=== PATIENT | female | born 1955 | race Caucasian/White ===

== ENCOUNTER → 2016-06-17 | Day surgery (SDC) | payer OTHER ==
[2016-06-08 13:02] VITALS: Ht 162.6 cm; Wt 43.2 kg
[~2016-06-17] VITALS: Ht 162.6 cm; Wt 43.2 kg
[~2016-06-17] MED LIST: ANT PO; CHOL20007 PO; CLON0.5T3 PO; DIGE1CAP10 PO; DOCU-94 PO; EFFSR150 PO; EFFSR75 PO; FENTANYL CITRATE INJ 50 MCG/1 ML 2 ML VIAL ONE; FIBEPOW PO; GING1CAP PO; LEVO125T72 PO; LIDOCAINE HCL 2% 2 ML VIAL (20MG/ML) ONE; MELA3TAB PO; MIDAZOLAM HCL 1 MG/ML 2ML VIAL ONE; MISCCAP80 PO; ONDA4TAB46 PO; ONDANSETRON INJ 2 MG/ML 2 ML VIAL ONE; POLY3350 PO; PROPOFOL IV EMULSION 10 MG/ML 20 ML VIAL IV ONE; QUET400T PO; RANI150C4 PO; SRQ/100 PO; TRAZ100T29 PO
--- NOTE | 2016-06-17 14:58 | Endo History and Physical ---
History & Physical Date of Service: Jun 17, 2016. Chief Complaint: wt loss Referring Physician: Dr Carlson History of Present Illness 60 yo CF who presents for colonoscopy secondary to weight loss. Past Medical History Other Psy. Disorders, Arthritis, Fractures, Anxiety, Reflux, Gynecological Problems, Thrombophlebitis, Thyroid Disease, Depression Past Surgical History Hx Cardiac Surgery: No Hx Internal Defibrillator: No Hx Pacemaker: No Hx Abdominal Surgery: Yes (TUBAL LIGATION, LAPAROSCOPY) Hx of Implantable Prosthesis: No Hx Post-Op Nausea and Vomiting: No Hx Cancer Surgery: No Hx Thoracic Surgery: No Hx Orthopedic: No Hx Urinary Tract Surgery: No Family History Polyp Social History Smoking Status: Never Smoker Hx Substance Use: Yes (MARIJUANA DAILY/HX COCAINE, ACID, MUSHROOMS AGE 20'S) Hx Alcohol Use: Yes (QUIT "MANY YEARS AGO") Allergies Coded Allergies: Aripiprazole (Verified Allergy, Unknown, DIARRHEA, 06/08/16) Ziprasidone (Verified Allergy, Unknown, "MADE ME FEEL WEIRD", 06/08/16) [place] (Verified Adverse Reaction, Unknown, NAUSEA/VOMITING, 06/08/16) Paroxetine (Verified Adverse Reaction, Unknown, MADE ME PSYCHOTIC, 06/08/16) Tramadol (Verified Adverse Reaction, Unknown, NAUSEA/VOMITING, 06/08/16) Uncoded Allergies: GREEN TEA (Allergy, Unknown, "PROJECTILE VOMIT AND SEIZURES", 06/08/16) Current Medications Reported Home Medications Medications Dose Route/Sig Max Daily Dose Days Date Category Klonopin (Clonazepam) 0.5 Mg Tab 0.5 Mg PO DAILY PRN 06/08/16 Reported Digestive Enzyme (Digestive Enzymes) 1 Cap Cap 1 Cap PO TIDM 06/08/16 Reported Probiotic (Probiotic Product) 1 Cap Cap 1 Tab PO BID 06/08/16 Reported Mar (Mar (Zingiber Officinalis)) 500 Mg Cap 1 Tab PO TIDM 06/08/16 Reported Vitamin D3 (Cholecalciferol) 2,000 Unit Tab 1 Tab PO QAM 06/08/16 Reported Zofran (Ondansetron HCl) 4 Mg Tab 4 Mg PO Q8H PRN 06/08/16 Reported Effexor Extended Rel (Venlafaxine Hcl) 150 Mg Capcr 150 Mg PO QAM 06/08/16 Reported Effexor Extended Rel (Venlafaxine Hcl) 75 Mg Capcr 75 Mg PO QAM 06/08/16 Reported Trazodone (Trazodone HCl) 100 Mg Tab 100 Mg PO HS 06/08/16 Reported Seroquel (Quetiapine Fumarate) 400 Mg Tab 400 Mg PO HS 06/08/16 Reported Seroquel (Quetiapine Fumarate) 100 Mg Tab 100 Mg PO HS 06/08/16 Reported Antacid (Miscellaneous) . 1 Tab PO UD PRN 06/08/16 Reported Ranitidine Hcl 150 Mg Cap 1 Cap PO BID 06/08/16 Reported Fiber 1 Pow Pow 1 Tsp PO QAM 06/08/16 Reported Klonopin (Clonazepam) 0.5 Mg Tab 0.5 Mg PO QID 06/08/16 Reported Colace (Docusate Sodium) 100 Mg Cap 1 Cap PO BID 06/08/16 Reported Melatonin 3 Mg Tab 1 Tab PO HS 12/04/14 Reported Polyethylene Glycol 3350 1 Pow Pow 3 Tsp PO QAM 12/04/14 Reported Synthroid (Levothyroxine Sodium) 125 Mcg Tab 1 Tab PO QAM 12/04/14 Reported Vital Signs Weight (Kilograms): 43.18 Height (Feet): 5 Height (Inches): 4 Date Time Temp Pulse Resp B/P Pulse Ox O2 Delivery O2 Flow Rate FiO2 06/17/16 14:00 36.7 86 20 135/76 98 Room Air Physical Exam General Appearance: WD/WN, no apparent distress Respiratory/Chest: Auscultation: breath sounds normal Cardiovascular: Heart Auscultation: RRR Abdomen: Bowel Sounds: normal Inspection & Palpation: soft, non-distended, no tenderness, guarding & rebound Assessment and Plan Assessment: 60 yo CF who presents for colonoscopy secondary to weight loss. Plan: Proceed with colonoscopy.
--- NOTE | 2016-06-17 15:48 | GI REPORT ---
Procedure Date: 06/17/2016 3:19 PM Procedure: Colonoscopy Indications: Weight loss Medicines: Monitored Anesthesia Care Complications: No immediate complications. Estimated Blood Loss: Estimated blood loss: none. Procedure: Pre-Anesthesia Assessment: - Prior to the procedure, a History and Physical was performed, and patient medications and allergies were reviewed. The patient's tolerance of previous anesthesia was also reviewed. The risks and benefits of the procedure and the sedation options and risks were discussed with the patient. All questions were answered, and informed consent was obtained. Prior Anticoagulants: The patient has taken no previous anticoagulant or antiplatelet agents. ASA Grade Assessment: II - A patient with mild systemic disease. After reviewing the risks and benefits, the patient was deemed in satisfactory condition to undergo the procedure. After I obtained informed consent, the scope was passed under direct vision. Throughout the procedure, the patient's blood pressure, pulse, and oxygen saturations were monitored continuously. The Scope was introduced through the anus and advanced to the terminal ileum. The colonoscopy was performed without difficulty. The patient tolerated the procedure well. The quality of the bowel preparation was good. The terminal ileum, ileocecal valve, appendiceal orifice, and rectum were photographed. Findings: The colon (entire examined portion) appeared normal. Impression: - The entire examined colon is normal. - No specimens collected. Recommendation: - Resume previous diet. - Continue present medications. - Repeat colonoscopy in 10 years for surveillance. - Return to primary care physician as previously scheduled. Sam Kearney DO 06/17/2016 3:48:06 PM This report has been signed electronically. Note Initiated On: 06/17/2016 3:19 PM I attest to the content of the Intraoperative Record and orders documented therein, exceptions below
--- NOTE | 2016-06-17 15:49 | Discharge Instructions ---
Endoscopy Patient Instructions Date / Procedure(s) Performed Jun 17, 2016. Colonoscopy Allergy Information Coded Allergies: Aripiprazole (Verified Allergy, Unknown, DIARRHEA, 06/08/16) Ziprasidone (Verified Allergy, Unknown, "MADE ME FEEL WEIRD", 06/08/16) [place] (Verified Adverse Reaction, Unknown, NAUSEA/VOMITING, 06/08/16) Paroxetine (Verified Adverse Reaction, Unknown, MADE ME PSYCHOTIC, 06/08/16) Tramadol (Verified Adverse Reaction, Unknown, NAUSEA/VOMITING, 06/08/16) Uncoded Allergies: GREEN TEA (Allergy, Unknown, "PROJECTILE VOMIT AND SEIZURES", 06/08/16) Discharge Date / Findings Jun 17, 2016. Normal colonoscopy Medication Instructions OK to resume all medications today as prescribed Reported Home Medications Medications Dose Route/Sig Max Daily Dose Days Date Category Klonopin (Clonazepam) 0.5 Mg Tab 0.5 Mg PO DAILY PRN 06/08/16 Reported Digestive Enzyme (Digestive Enzymes) 1 Cap Cap 1 Cap PO TIDM 06/08/16 Reported Probiotic (Probiotic Product) 1 Cap Cap 1 Tab PO BID 06/08/16 Reported Mar (Mar (Zingiber Officinalis)) 500 Mg Cap 1 Tab PO TIDM 06/08/16 Reported Vitamin D3 (Cholecalciferol) 2,000 Unit Tab 1 Tab PO QAM 06/08/16 Reported Zofran (Ondansetron HCl) 4 Mg Tab 4 Mg PO Q8H PRN 06/08/16 Reported Effexor Extended Rel (Venlafaxine Hcl) 150 Mg Capcr 150 Mg PO QAM 06/08/16 Reported Effexor Extended Rel (Venlafaxine Hcl) 75 Mg Capcr 75 Mg PO QAM 06/08/16 Reported Trazodone (Trazodone HCl) 100 Mg Tab 100 Mg PO HS 06/08/16 Reported Seroquel (Quetiapine Fumarate) 400 Mg Tab 400 Mg PO HS 06/08/16 Reported Seroquel (Quetiapine Fumarate) 100 Mg Tab 100 Mg PO HS 06/08/16 Reported Antacid (Miscellaneous) . 1 Tab PO UD PRN 06/08/16 Reported Ranitidine Hcl 150 Mg Cap 1 Cap PO BID 06/08/16 Reported Fiber 1 Pow Pow 1 Tsp PO QAM 06/08/16 Reported Klonopin (Clonazepam) 0.5 Mg Tab 0.5 Mg PO QID 06/08/16 Reported Colace (Docusate Sodium) 100 Mg Cap 1 Cap PO BID 06/08/16 Reported Melatonin 3 Mg Tab 1 Tab PO HS 12/04/14 Reported Polyethylene Glycol 3350 1 Pow Pow 3 Tsp PO QAM 12/04/14 Reported Synthroid (Levothyroxine Sodium) 125 Mcg Tab 1 Tab PO QAM 12/04/14 Reported Provider Instructions Activity Restrictions - No exercising or heavy lifting for 24 hours. - Do not drink alcohol the day of the procedure. - Do not drive a car or operate machinery until the day after the procedure. - Do not make any important decisions or sign important papers in 24 hours after the procedure. Following Day: - Return to full activity which may include returning to work/school. Diet Start your diet with liquids and light foods (jello, soup, juice, toast). Then eat your usual diet if not nauseated. Treatment For Common After Affects For mild abdominal pain, bloating, or excessive gas: - Rest - Eat lightly - Lie on right side Follow-Up Information Follow-up with Dr Carlson as scheduled Anesthesia Information What You Should Know You have had a procedure that required some medicine to reduce anxiety and discomfort. This treatment is called moderate sedation. After receiving the treatment, you may be sleepy, but you will be able to breathe on your own. The effects of the treatment may last for several hours. Follow these instructions along with Activity/Diet recommendations noted above: * Do NOT do anything where dizziness or clumsiness would be dangerous. * Rest quietly at home today, then you can be up and about tomorrow. * Have a responsible person stay with you the rest of today. * You may have had an I.V. today. If so, you may take the dressing off later today. Recommendations Call your doctor if: * Trouble breathing * Continuous vomiting for more than 24 hours * Temperature above 101 degrees * Severe abdominal pain or bloating * Pain not relieved by pain medicine ordered * There is increased drainage or redness from any incision * A large amount of rectal bleeding greater than 2-3 tablespoons. (If you had a polyp/s removed or have hemorrhoids, a small amount of blood - from the rectum is to be expected.) * You have any unanswered questions or concerns. IN THE EVENT OF A SERIOUS EMERGENCY, GO TO THE NEAREST EMERGENCY ROOM Your discharge instructions were prepared by provider Sam Kearney. Patient Instructions Signature Page Lorna Piedra Patient (or Guardian) Signature/Date: I have read and understand the instructions given to me by my caregivers. Caregiver/RN/Doctor Signature/Date: The above-named patient and/or guardian has received patient instructions on this date. + Original Patient Signature Page (only) stays with chart. Please make copy for patient.
--- NOTE | 2016-06-17 16:04 | Anesthesiology Progress Note ---
Anesthesia Post Op Note Date & Time Jun 17, 2016 at 16:05 Vital Signs Pain Intensity: 0 Vital Signs Past 12 Hours Date Time Temp Pulse Resp B/P Pulse Ox O2 Delivery O2 Flow Rate FiO2 06/17/16 15:44 72 18 107/70 99 Room Air 06/17/16 14:00 36.7 86 20 135/76 98 Room Air Notes Mental Status: alert / awake / arousable, participated in evaluation Pt Amnestic to Procedure: Yes Nausea / Vomiting: adequately controlled Pain: adequately controlled Airway Patency, RR, SpO2: stable & adequate BP & HR: stable & adequate Hydration State: stable & adequate Anesthetic Complications: no major complications apparent
[2016-06-17 16:13] VITALS: BP 133/76; PULSE 74; O2SAT 98
== END | disposition home or self-care (01) ==
LOC: C.GI 12:34
PROVIDERS: ATTEND Internal Medicine
DX: R63.4 Abnormal weight loss (principal); K21.9 Gastro-esophageal reflux disease without esophagitis; M19.90 Unspecified osteoarthritis, unspecified site; E07.9 Disorder of thyroid, unspecified; F32.9 Major depressive disorder, single episode, unspecified; I80.9 Phlebitis and thrombophlebitis of unspecified site; Z88.5 Allergy status to narcotic agent; Z88.8 Allergy status to other drugs, medicaments and biological substances; Z98.51 Tubal ligation status; Z98.890 Other specified postprocedural states

== ENCOUNTER → 2017-01-10 | Outpatient (CLI) | payer OTHER ==
[~2017-01-10] MED LIST changes: -FENTANYL CITRATE INJ 50 MCG/1 ML 2 ML VIAL ONE; -LIDOCAINE HCL 2% 2 ML VIAL (20MG/ML) ONE; -MIDAZOLAM HCL 1 MG/ML 2ML VIAL ONE; -ONDANSETRON INJ 2 MG/ML 2 ML VIAL ONE; -PROPOFOL IV EMULSION 10 MG/ML 20 ML VIAL IV ONE
== END | disposition home or self-care (01) ==
LOC: C.MAMM 11:41
PROVIDERS: ATTEND Family Medicine
DX: M81.0 Age-related osteoporosis without current pathological fracture (principal); M85.88 Other specified disorders of bone density and structure, other site; M85.851 Other specified disorders of bone density and structure, right thigh

== ENCOUNTER 2017-04-16 16:26 | Inpatient (IN) | payer OTHER ==
[~2017-04-16] VITALS: Ht 162.6 cm; Wt 62.0 kg
[2017-04-16] MEDS ORDERED: HALOPERIDOL LACTATE 5 MG/ML 1 ML VIAL IM STA ×2 (16:27→18:35)
[2017-04-16] MEDS ORDERED: LORAZEPAM 2 MG/ML 1 ML VIAL IM STA ×2 (16:27→18:35)
[2017-04-16] MEDS ORDERED: BENZTROPINE MESYLATE 1 MG/ML 2 ML AMP IM STA (16:27)
[2017-04-16] MEDS ORDERED: HALOPERIDOL LACTATE 5 MG/ML 1 ML VIAL ONE (16:29)
[2017-04-16] MEDS ORDERED: LORAZEPAM 2 MG/ML 1 ML VIAL ONE (16:29)
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
[2017-04-16] MEDS ORDERED: KETAMINE HCL INJ 50 MG/ML 10 ML VIAL IM STA (16:56)
[2017-04-16 17:06] LABS: BASO % 0.2 %; BASO ABS # 0.03 K/uL (0-0.2); EOS % 1.5 %; EOS ABS # 0.19 K/uL (0-0.5); HEMATOCRIT 33.4 % (37-47); HEMOGLOBIN 11.4 g/dL (12.0-16.0); IG# 0.03 K/uL (0.00-0.02); LYMPH % 6.9 %; LYMPH ABS # 0.88 K/uL (1.2-3.4); MEAN CELL VOLUME 88.1 fL (80-100); MEAN CORPUSCULAR HEMOGLOBIN 30.1 pg (25-34); MEAN CORPUSCULAR HGB CONC 34.1 g/dl (32-36); MEAN PLATELET VOLUME 8.6 fL (7.4-10.4); MONO % 8.9 %; MONO ABS # 1.13 K/uL (0.11-0.59); NEUT % 82.3 %; NEUT ABS # 10.44 K/uL (1.4-6.5); PLATELET COUNT 255 K/uL (130-400); RED CELL DISTRIBUTION WIDTH CV 13.1 % (11.5-14.5); RED CELL DISTRIBUTION WIDTH SD 42.1 fL (36.4-46.3)
[2017-04-16 17:10] VITALS: O2SAT 98
[2017-04-16 17:14] LABS: PTT PATIENT 25.2 SECONDS (21.0-31.0)
[2017-04-16 17:30] LABS: ALBUMIN 3.8 gm/dl (3.4-5.0); CALCIUM 8.8 mg/dl (8.5-10.1); CREATININE 0.59 mg/dl (0.60-1.20); POTASSIUM 3.5 mmol/L (3.5-5.1)
[2017-04-16 17:33] LABS: TOTAL PROTEIN 6.9 gm/dl (6.4-8.2)
[2017-04-16] MEDS ORDERED: ONDANSETRON INJ 2 MG/ML 2 ML VIAL IV STA (17:47)
[2017-04-16] MEDS ORDERED: LORAZEPAM 2 MG/ML 1 ML VIAL IV STA (18:36)
[2017-04-16] MEDS ORDERED: KETAMINE HCL INJ 50 MG/ML 10 ML VIAL IV STA ×3 (18:49→18:59)
[2017-04-16] MEDS: SODIUM CHLORIDE 0.9% 1000ML 1,000 ML IV STA (19:53)
--- NOTE | 2017-04-16 20:50 | DIAGNOSTIC IMAGING REPORT ---
HEAD WITHOUT CONTRAST (CT) CT DOSE: 537.48 mGy.cm HISTORY: Mental status change Pt c/o AMS TECHNIQUE: Multiaxial CT images of the head were performed without the use of intravenous contrast. A dose lowering technique was utilized adhering to the principles of ALARA. Comparison: None. Findings: Moderate mucosal thickening of the sphenoid sinuses. All remaining sinuses are clear. Mastoid air cells are clear. The calvarium and skull base are intact. The ventricles and sulci are within normal limits. There is no mass, hematoma, midline shift, or acute infarct. Mild age-related chronic small vessel change of the periventricular deep white matter regions. No acute intracranial hemorrhage. Impression: No acute intracranial abnormality. Chronic and age-related change. Moderate mucosal thickening sphenoid sinus The above report was generated using voice recognition software. It may contain grammatical, syntax or spelling errors. Electronically signed by: Ascencion Sparks M.D. 04/16/2017 8:49 PM Dictated Date/Time: 04/16/2017 8:48 PM
[2017-04-16] MEDS ORDERED: SODIUM CHLORIDE 0.65% NA SOLN 45 ML (OCEAN) PRN (22:15)
[2017-04-16] MEDS ORDERED: MAGNESIUM HYDROXIDE SUSP 30 ML UDC PO PRN (22:15)
[2017-04-16] MEDS ORDERED: BISMUTH SUBSALICYLATE PER ML OMNICELL CHARGE PO PRN (22:15)
[2017-04-16] MEDS ORDERED: LORAZEPAM 1 MG TAB PO PRN (22:15)
[2017-04-16] MEDS ORDERED: ONDANSETRON 4 MG TAB PO PRN (22:30)
[2017-04-16] MEDS ORDERED: LORAZEPAM 2 MG/ML 1 ML VIAL IM PRN (22:30)
[2017-04-16] MEDS ORDERED: HALOPERIDOL LACTATE 5 MG/ML 1 ML VIAL IM PRN (22:30)
[2017-04-16] MEDS ORDERED: BENZTROPINE MESYLATE 1 MG/ML 2 ML AMP IM PRN (22:30)
[2017-04-16 22:35] VITALS: O2SAT 98
[2017-04-16 23:15] VITALS: BP 128/74; PULSE 68; TEMP 36.7; Ht 162.6 cm; Wt 62.0 kg
[2017-04-17] MEDS: [UNRECOGNIZED DRUG - OTHER] SCH ×2 (08:00→16:00)
[2017-04-17] MEDS ORDERED: LEVOTHYROXINE 125 MCG TAB PO SCH (08:00)
[2017-04-17] MEDS ORDERED: GINGER PO SCH (08:00)
[2017-04-17 08:58] VITALS: BP 129/72; PULSE 91; TEMP 37.1
[2017-04-17] MEDS ORDERED: VENLAFAXINE HCL XR 75 MG CAPXR PO SCH (09:00)
[2017-04-17] MEDS: POLYETHYLENE (MIRALAX) 17 GM PACK PO SCH (09:00)
[2017-04-17] MEDS ORDERED: VENLAFAXINE HCL XR 150 MG CAPXR PO SCH (09:00)
[2017-04-17] MEDS ORDERED: MULT-506 PO (09:54)
[2017-04-17] MEDS ORDERED: VNTHFA/IN INH (09:56)
[2017-04-17] MEDS ORDERED: CARI1CAP2 PO (10:00)
[2017-04-17] MEDS: LACTOBACILLUS ACIDOPHILUS (FLORANEX) TAB PO SCH ×2 (11:52→20:35)
[2017-04-17] MEDS: DOCUSATE SODIUM 100 MG CAP PO SCH ×2 (11:52→20:34)
[2017-04-17] MEDS: PSYLLIUM 58.6% PWD PACK S\\F PO SCH (11:52)
[2017-04-17] MEDS: CHOLECALCIFEROL 1000 INTER.UNIT TAB PO SCH (11:53)
[2017-04-17] MEDS: RANITIDINE HCL 150 MG TAB PO SCH ×2 (11:53→20:36)
[2017-04-17] MEDS: BENZTROPINE MESYLATE 1 MG TAB PO PRN (11:55)
[2017-04-17] MEDS: HALOPERIDOL 5 MG TAB PO PRN (11:55)
[2017-04-17] MEDS ORDERED: NURSING VERBAL MED ORDER ONE (12:15)
[2017-04-17] MEDS: LEVOTHYROXINE 100 MCG TAB PO SCH (12:25)
[2017-04-17] MEDS: ALBUTEROL HFA 8 GM INHALER INH PRN ×3 (12:26→20:34)
--- NOTE | 2017-04-17 17:46 | Psychiatric History & Physical ---
History Date of Service Apr 17, 2017. Identifying Data Lorna Piedra is a 61-year-old female admitted on Apr 16, 2017 at 22:19 who currently lives in [place] alone. Lorna Piedra was admitted on a 302 involuntary commitment. Patient is admitted from the ED where she required multiple chemical and physical restraints for agitation. The patient was brought to the ED by the police and there is an active warrant for her arrest on multiple counts of terroristic threats. The police are to be notified prior to discharge. Chief Complaint "what was I supposed to do?". History of Present Illness Patient slept through the night and reports little memory of events in ED. She is loud/pressured and not particularly cooperative with interview currently. She reportedly confronted her neighbors for [place] water and then threatened them with a frying lott prior to barricading herself in her home with a >3 ft long machete. She was in a "stand off" with police for 2 hours threatening herself and others and required 4 pt restraints, IV and IM Ketamine, and Haldol and Ativan for agitation. She tells me that she wanted to adopt her neighbors and wanted specific water because tap water is poison. She states that she was chipping ice off of her deck to have suck on snow rather than drinking the water in her house. It doesn't seem that she has been taking her medication, specifically Seroquel as prescribed. Dosing doesn't match Dr. Decker's last clinic note and when I spoke with him directly he stated that patient is no longer taking Vraylar or Ativan. He is aware of her history of benzo OD but since she had been stable for some time on Seroquel (dose up to 500 mg) he had provided a few tabs as a comfort measure. The patient is insistent with me that she have Klonopin and Ativan. She does have insight that "I clearly need Seroquel", recognizing that her current use of 50-100 mg is inadequate to control her mood symptoms. She admitted to staff that she uses MJ regularly and when she can't have an Ativan she takes a shot of Vodka daily. Of note patient was last seen on consult service on 12/17 for Klonopin OD. She has been following at [facility] since summer. Last therapy appt with Dr. Weber in August 2016. Past Psychiatric History Current OP Treatment: psychiatrist (Dr. Decker, [facility]) Prior OP Treatment: psychiatrist (Dr. Adam [facility]), therapist (Dr. Weber, [facility], [facility]), case hardener (plus peer support and [facility]) Prior Psych Hospitalizations: [facility] (multiple, last ?2014), [facility] (2004, 2006, 2008), other [facility] 2014 most recent; [facility] Access to a Gun: No Suicide Attempts: Yes (multiple OD on traz, benzo, ETOH, tylenol) Past Medication Trials Remeron, Prozac, Wellbutrin, Celexa, Paxil (?withdrawal seizure), Zoloft Seroquel, Saphris, Zyprexa, Risperdal, Geodon, Abilify (GI), Vraylar 2017 (3 mg) , Haldol cogentin, amantadine buspar, klonopin, Ativan trazodone, neurontin Depakote (helpful), lithium (nonspecific bad reaction) Past Medical/Surgical History (1) Hypothyroidism (2) Tonsillectomy Allergies Allergies: Coded Allergies: Aripiprazole (Verified Allergy, Unknown, DIARRHEA, 06/08/16) Ziprasidone (Verified Allergy, Unknown, "MADE ME FEEL WEIRD", 06/08/16) Addy (Verified Adverse Reaction, Unknown, NAUSEA/VOMITING, 06/08/16) Paroxetine (Verified Adverse Reaction, Unknown, MADE ME PSYCHOTIC, 06/08/16) Tramadol (Verified Adverse Reaction, Unknown, NAUSEA/VOMITING, 06/08/16) Uncoded Allergies: GREEN TEA (Allergy, Unknown, "PROJECTILE VOMIT AND SEIZURES", 06/08/16) Home Medications Scheduled Cholecalciferol (Vitamin D3), 1 TAB PO QAM Digestive Enzymes (Digestive Enzyme), 1 CAP PO TIDM Fiber (Fiber), 1 TSP PO QAM Mar (Zingiber Officinalis) (Mar), 1 TAB PO TIDM Levothyroxine Sodium (Synthroid), 100 MCG PO QAM Multivitamin (Multivitamin), 1 TAB PO DAILY Polyethylene Glycol 3350 (Polyethylene Glycol 3350), 3 TSP PO QAM Probiotic Product (Probiotic), 1 TAB PO BID Quetiapine Fumarate (Seroquel), 50 MG PO HS Ranitidine Hcl (Ranitidine Hcl), 1 CAP PO BID17 Scheduled PRN Albuterol Hfa (Ventolin Hfa), 2 PUFFS INH Q6H PRN for Shortness of Breath Antacid (Antacid), 1 TAB PO UD PRN for Indigestion Docusate Sodium (Colace), 1 CAP PO BID PRN for Constipation Ondansetron Hcl (Zofran), 4 MG PO Q8H PRN for Nausea Family History FH ischemic heart disease FH: chronic respiratory condition Psychiatric condition History of Substance Abuse: Yes (fa and sis ETOH) Psychiatric History: Yes (mother and son depression; [facility]) Alcohol Use Alcohol Use In Past 12 Months: Yes patient is unable to quantify reliably Smoking Use Smoking Status: Never Smoker Substance History hx of MJ and benzodiazepine abuse Personal History Lives in: [place] Work History: BA from [employer] Relationship History: (X3) Children: 2 sons, limited to no contact Legal History: reported (warrant as above) Psychological Trauma History: Denies Hx Traumatic Event Review of Systems Psych: denies symptoms other than stated above Constitutional: denied Cardiovascular: denied GI: denied Neurologic: denied Remainder of 10 body systems also reviewed and denied other than noted above. Examination Physical Examination A physical exam was performed in the ER prior to admission to the unit by Dr. Horton. I accept that physical as correct/medical clearance for the inpatient physical exam. Vital Signs Vital Signs Past 12 Hours Date Time Temp Pulse Resp B/P (MAP) Pulse Ox O2 Delivery O2 Flow Rate FiO2 04/17/17 08:58 37.1 91 16 129/72 Laboratory Results Last 24 Hours Test 04/16/17 17:16 04/16/17 20:09 04/16/17 21:10 Bedside Glucose 109 mg/dl Total Creatine Kinase U/L 521 U/L Thyroid Stimulating Hormone (TSH) 6.050 uIu/ml Mental Examination During interview pt is: alert and oriented, uncooperative Appearance: disheveled Eye contact is: poor Motor behavior is: no abnormal motor movements, psychomotor agitation Speech: is pressured, loud Affect: labile Mood is: irritable Thought process: tangential Thought content: paranoid, delusions Suicidal thought are: denied Homicidal thoughts are: denied Hallucinations: denies auditory, denies visual Cognition: language grossly intact, other (attention poor) Intelligence estimated to be: average Insight: severely impaired Judgement: severely impaired Impression / Recommendations Impression 61 yo female with a history of schizoaffective disorder, bipolar type presents with paranoid delusions and aggression toward neighbors and police due to irritable mirna while tapering and/or noncompliant with Seroquel. She has a history of multiple OD attempts and benzo misuse/abuse. Inventory Assets Strengths: intelligent, has outpatient psychiatrist, willing to take PO meds at this point Needs: therapist/community resources outside of [facility], clarification of legal situation Risk Factors Assessment : Yes /single/: Yes Higher / Fall in social status: Yes Access to guns: No Mental Health Diagnoses: Yes Previous attempt: Yes Previous psychiatric stay: Yes Recommendations (1) Schizoaffective disorder 04/17--The patient is admitted to [facility] ([facility]) on q 15 min checks (behavioral with suicide precautions) for safety. The patient will participate in group, recreational and milieu therapies and will be offered additional individual and family sessions as clinically appropriate. Case reviewed with outpatient psychiatrist. She is agreeable to restart higher dose of Seroquel and will take 200 mg this hs with additional 100 mg po prn, likely should be retitrated to at least [address] Decker would support retrial of adjunctive depakote and/or conversion to injectable. multiple prns ordered should she become agitated, MNPR given unpredictable behavior (2) Benzodiazepine abuse patient is unable to participate in meaningful discussion around this and ETOH use, unclear if use disorder on the latter and will cover with [facility] protocol. Outpatient provider is clear he will no longer rx any benzos for this patient (3) Hypothyroidism TSH >5 on admission, repeat panel. (4) Legal intervention active arrest warrant for terroristic threats CPT Code Initial Hospital Care: 82977 Problem Qualifiers (1) Schizoaffective disorder: Schizoaffective disorder type: bipolar Qualified Codes: F25.0 - Schizoaffective disorder, bipolar type
[2017-04-17] MEDS ORDERED: NON-FORMULARY MEDICATION (Melatonin 1 TAB) PO SCH (21:00)
[2017-04-17] MEDS ORDERED: QUETIAPINE FUMARATE 200 MG TAB PO SCH (22:00)
[2017-04-18] MEDS: ALBUTEROL HFA 8 GM INHALER INH PRN ×4 (03:43→16:40)
[2017-04-18] MEDS: hydrOXYzine HCL 25 MG TAB PO PRN ×3 (05:00→20:46)
[2017-04-18 06:54] VITALS: BP_SYST 108; BP_SYST 123; BP_DIAS 71; BP_DIAS 72; PULSE 80; PULSE 81; TEMP 36.9
[2017-04-18] MEDS: LEVOTHYROXINE 100 MCG TAB PO SCH (07:36)
[2017-04-18] MEDS: [UNRECOGNIZED DRUG - OTHER] SCH ×3 (08:00→15:30)
[2017-04-18] MEDS: LACTOBACILLUS ACIDOPHILUS (FLORANEX) TAB PO SCH ×2 (08:43→20:41)
[2017-04-18] MEDS: RANITIDINE HCL 150 MG TAB PO SCH ×2 (08:43→20:42)
[2017-04-18] MEDS: DOCUSATE SODIUM 100 MG CAP PO SCH ×2 (08:43→20:41)
[2017-04-18] MEDS: CHOLECALCIFEROL 1000 INTER.UNIT TAB PO SCH (08:43)
[2017-04-18] MEDS: PSYLLIUM 58.6% PWD PACK S\\F PO SCH (08:44)
[2017-04-18] MEDS: POLYETHYLENE (MIRALAX) 17 GM PACK PO SCH (08:44)
[2017-04-18] MEDS: HALOPERIDOL 5 MG TAB PO PRN (12:53)
[2017-04-18] MEDS: BENZTROPINE MESYLATE 1 MG TAB PO PRN ×2 (12:53→18:22)
--- NOTE | 2017-04-18 14:16 | Psychiatric Progress Notes ---
Progress Note Date of Service Apr 18, 2017. Interval History Lorna Piedra is a 61-year-old female admitted on Apr 16, 2017 at 22:19 who currently lives in [place] alone. Lorna Piedra was admitted on a 302 involuntary commitment. Patient is admitted from the ED where she required multiple chemical and physical restraints for agitation. The patient was brought to the ED by the police and there is an active warrant for her arrest on multiple counts of terroristic threats. The police are to be notified prior to discharge. Chief Complaint "Hanging in there". Subjective Patient was seen & assessed interval progress reviewed with Treatment Team. Staff report the patient has been manic, hyperverbal, changing her clothes multiple times, and going back and forth between her room in the day room carrying several drinks and belongings with her. She is intrusive, disorganized , has been eating other patient's food, and requires frequent redirection. She is extremely labile and irritable at times, and is unable to tolerate groups. She has poor boundaries, and is asking to be discharged because another patient had a ticket to an event and Lorna expects to be invited. She received Haldol 5 mg once yesterday and went so far today for agitation and mirna. On my assessment, she was seen in her room, was pacing around, and said that she couldn't answer questions because "can't talk very well, now I have COPD." She reports good sleep, and then says she won't answer any further questions, saying "can I tell you later please? I'm sick and I'm ill, all over." She then requests burn ointment for her hands, and when asked how she injured her hand, says "don't worry about it, I was trying to quit." She then says she "just needs someone to listen to me," and when asked to clarify says "I'm trying to talk but I don't have any breath left. Just leave me alone!" Social work reports she signed a release for police, who confirmed that they have a warrant for her arrest and will be picking her up at discharge. Review of Systems Patient refused to participate in review of systems. Sleep Information Total Hours of Sleep: 8.25 Meal Information Percent of Breakfast Consumed: 90 Percent of Lunch Consumed: 100 Percent of Dinner Consumed: 100 Mental Status Exam During interview pt is: uncooperative Appearance: disheveled Eye contact is: poor Motor behavior is: no abnormal motor movements, psychomotor agitation Speech: is pressured, loud Affect: labile, irritable Mood is: irritable Thought process: tangential, looseness of associations Thought content: other (difficult to assess due to disorganization and poor participation in the assessment) Cognition: language grossly intact, other (memory and attention are impaired) Intelligence estimated to be: average Insight: severely impaired Judgement: severely impaired Medication Trials Remeron, Prozac, Wellbutrin, Celexa, Paxil (?withdrawal seizure), Zoloft Seroquel, Saphris, Zyprexa, Risperdal, Geodon, Abilify (GI), Vraylar 2017 (3 mg) , Haldol cogentin, amantadine buspar, klonopin, Ativan trazodone, neurontin Depakote (helpful), lithium (nonspecific bad reaction) Impression 61 yo female with a history of schizoaffective disorder, bipolar type who presents with paranoid delusions, disorganization, and aggression toward neighbors and police due to irritable mirna while tapering and/or noncompliant with Seroquel. She has a history of multiple OD attempts and benzo misuse/ abuse. Plan (1) Schizoaffective disorder 04/17--The patient is admitted to [facility] ([facility]) on q 15 min checks (behavioral with suicide precautions) for safety. The patient will participate in group, recreational and milieu therapies and will be offered additional individual and family sessions as clinically appropriate. Case reviewed with outpatient psychiatrist. She is agreeable to restart higher dose of Seroquel and will take 200 mg this hs with additional 100 mg po prn, likely should be retitrated to at least [address] Decker would support retrial of adjunctive depakote and/or conversion to injectable. multiple prns ordered should she become agitated, MNPR given unpredictable behavior 04/18 - increase quetiapine to 300 mg daily at bedtime and continue 100 mg when necessary dose. Continue haloperidol 5 mg and lorazepam 2 mg as needed. Continue benztropine as needed. - Consider Depakote versus more potent antipsychotic with a long acting injectable option. Today she is unwilling/unable to participate in the discussion of medication options. - Fasting lipid profile and glucose performed today and were normal. - Continue medically necessary private room due to psychosis and agitation/ aggression. (2) Benzodiazepine abuse patient is unable to participate in meaningful discussion around this and ETOH use, unclear if use disorder on the latter and will cover with [facility] protocol. Outpatient provider is clear he will no longer rx any benzos for this patient (3) Hypothyroidism TSH >5 on admission, repeat panel. 04/18 - repeat TSH elevated at 6.8, but free T4 normal at 1.17. (4) Legal intervention active arrest warrant for terroristic threats 04/18 - patient signed release for police, social media manager contacted them and they confirmed that they will be picking her up at discharge. Discharge / Aftercare Planning Primary Care Physician: Name: Chanel Mujica PA Psychiatrist: Name: Dr Decker, [facility] Therapist: Name: Pia [employer] Teacher: Name: Justin Brice [employer] Reservations Visit Code E&M Code: 02439 Inventory Assets Strengths: intelligent, has outpatient psychiatrist, willing to take PO meds at this point Needs: therapist/community resources outside of [employer], clarification of legal situation Risk Factors Assessment : Yes /single/: Yes Higher / Fall in social status: Yes Access to guns: No Health problems: No Mental Health Diagnoses: Yes Previous attempt: Yes Previous psychiatric stay: Yes Protective Factors Assessment : No Data Vital Signs Last 24 Hrs: Date Time Temp Pulse Resp B/P (MAP) Pulse Ox O2 Delivery O2 Flow Rate FiO2 04/18/17 06:54 36.9 80 16 123/71 81 108/72 Meds Administered Last 24 Hrs: Meds Administered (Past 24Hrs) Medications (Trade) Dose Ordered Sig/[place] Route Start Time Stop Time Status Last Admin Dose Admin Haloperidol Lactate (Haldol Inj) 10 mg NOW STAT IM 04/16/17 16:27 04/16/17 16:28 DC 04/16/17 17:52 10 MG Lorazepam (Ativan Inj) 2 mg NOW STAT IM 04/16/17 16:27 04/16/17 16:28 DC 04/16/17 17:53 2 MG Benztropine Mesylate (Cogentin Inj) 2 mg NOW STAT IM 1/13/18 16:27 04/16/17 16:28 DC 04/16/17 17:33 2 MG Haloperidol Lactate (Haldol Inj) 10 mg NOW STAT IM 04/16/17 18:35 04/16/17 18:36 DC 04/16/17 18:46 10 MG Lorazepam (Ativan Inj) 2 mg NOW STAT IV 04/16/17 18:36 04/16/17 18:37 DC 04/16/17 18:46 2 MG Ketamine HCl (Ketalar Steri-Vial Inj) 50 mg NOW STAT IV 04/16/17 18:49 04/16/17 18:51 DC 04/16/17 19:02 50 MG Ketamine HCl (Ketalar Steri-Vial Inj) 50 mg NOW STAT IV 04/16/17 18:49 04/16/17 18:51 DC 04/16/17 19:02 50 MG Ketamine HCl (Ketalar Steri-Vial Inj) 50 mg NOW STAT IV 04/16/17 18:59 04/16/17 19:00 DC 04/16/17 19:02 50 MG Sodium Chloride 1,000 ml @ 999 mls/hr Q1H1M STAT IV 04/16/17 19:53 04/16/17 20:53 DC 04/16/17 19:53 999 MLS/HR Hydroxyzine HCl (Vistaril Tab) 25 mg Q4H PRN PO 04/16/17 22:15 05/16/17 22:14 04/18/17 05:00 25 MG Docusate Sodium (coLACE CAP) 100 mg BID PO 04/17/17 09:00 05/17/17 08:59 04/18/17 08:43 100 MG Cholecalciferol (Vitamin D Tab) 2,000 inter.unit QAM PO 04/17/17 09:00 05/17/17 08:59 04/18/17 08:43 2,000 INTER.UNIT Psyllium Hydrophilic Mucilloid (Metamucil Powder) 1 pkt QAM PO 04/17/17 09:00 05/17/17 08:59 04/18/17 08:44 1 PKT Lactobacillus Acidophilus (Floranex Tab) 1 tab BID PO 04/17/17 09:00 05/17/17 08:59 04/18/17 08:43 1 TAB Ranitidine HCl (zANTac TAB) 150 mg BID PO 04/17/17 09:00 05/17/17 08:59 04/18/17 08:43 150 MG Haloperidol (Haldol Tab) 5 mg Q6 PRN PO 04/16/17 22:30 05/16/17 22:29 04/18/17 12:53 5 MG Benztropine Mesylate (Cogentin Tab) 1 mg BID PRN PO 04/16/17 22:30 05/16/17 22:29 04/18/17 12:53 1 MG Quetiapine Fumarate (seroQUEL TAB) 200 mg HS PO 04/17/17 22:00 04/18/17 09:47 DC 04/17/17 20:35 200 MG Levothyroxine Sodium (Synthroid Tab) 100 mcg DAILYBB PO 04/17/17 11:30 05/17/17 11:29 04/18/17 07:36 100 MCG Albuterol (Ventolin Hfa Inhaler) 2 puffs Q4H PRN INH 04/17/17 12:15 05/17/17 12:14 04/18/17 12:39 2 PUFFS Lab Results Last 24 Hrs: Last 24 Hours Test 04/18/17 07:13 Fasting Glucose 87 mg/dl Triglycerides Level 67 mg/dl Cholesterol Level 161 mg/dl HDL Cholesterol 63 mg/dl LDL Cholesterol, Calculated 85 mg/dl VLDL Cholesterol, Calculated 13 mg/dl Cholesterol/HDL Ratio 2.6 Thyroid Stimulating Hormone (TSH) 6.800 uIu/ml Free Thyroxine 1.17 ng/dl Problem Qualifiers (1) Schizoaffective disorder: Schizoaffective disorder type: bipolar Qualified Codes: F25.0 - Schizoaffective disorder, bipolar type
[2017-04-18] MEDS ORDERED: HYDROCORTISONE 1% CR 30 GM TUBE EXT PRN (14:30)
[2017-04-18] MEDS: QUETIAPINE FUMARATE 100 MG TAB PO SCH (20:42)
[2017-04-18] MEDS: QUETIAPINE FUMARATE 100 MG TAB PO PRN (22:12)
[2017-04-18] MEDS: ALUMINUM/MAGNESIUM SUSP 30 ML UDC PO PRN (22:29)
[2017-04-19] MEDS: hydrOXYzine HCL 25 MG TAB PO PRN ×5 (04:58→23:38)
[2017-04-19] MEDS: ALBUTEROL HFA 8 GM INHALER INH PRN ×4 (05:00→21:32)
[2017-04-19] MEDS: ACETAMINOPHEN 325 MG TAB PO PRN ×2 (05:46→21:29)
[2017-04-19 06:59] VITALS: BP_SYST 116; BP_SYST 117; BP_DIAS 80; BP_DIAS 81; PULSE 91; PULSE 92; TEMP 36.6
[2017-04-19] MEDS: [UNRECOGNIZED DRUG - OTHER] SCH ×3 (08:00→16:00)
[2017-04-19] MEDS: LEVOTHYROXINE 100 MCG TAB PO SCH (08:23)
[2017-04-19] MEDS: DOCUSATE SODIUM 100 MG CAP PO SCH ×2 (08:23→21:24)
[2017-04-19] MEDS: RANITIDINE HCL 150 MG TAB PO SCH ×2 (08:24→21:24)
[2017-04-19] MEDS: CHOLECALCIFEROL 1000 INTER.UNIT TAB PO SCH (08:24)
[2017-04-19] MEDS: LACTOBACILLUS ACIDOPHILUS (FLORANEX) TAB PO SCH ×2 (08:24→21:24)
[2017-04-19] MEDS: PSYLLIUM 58.6% PWD PACK S\\F PO SCH (08:26)
[2017-04-19] MEDS ORDERED: POLYETHYLENE (MIRALAX) 17 GM PACK PO PRN (09:00)
[2017-04-19] MEDS: BENZTROPINE MESYLATE 1 MG TAB PO PRN (10:54)
[2017-04-19] MEDS: HALOPERIDOL 5 MG TAB PO PRN (10:54)
[2017-04-19] MEDS ORDERED: TRIHEXYPHENIDYL HCL 2 MG TAB PO ONE (15:15)
--- NOTE | 2017-04-19 15:15 | Psychiatric Progress Notes ---
Progress Note Date of Service Apr 19, 2017. Interval History Lorna Piedra is a 61-year-old female admitted on Apr 16, 2017 at 22:19 who currently lives in [place] alone. Lorna Piedra was admitted on a 302 involuntary commitment. Patient is admitted from the ED where she required multiple chemical and physical restraints for agitation. The patient was brought to the ED by the police and there is an active warrant for her arrest on multiple counts of terroristic threats. The police are to be notified prior to discharge. Chief Complaint "I'm in pain from the top of my head to my toes. ". Subjective Patient was seen & assessed interval progress reviewed with Treatment Team. The patient comes with a pile of papers filled with questions today. She says that she has pain all over, wanting meds. She is complaining of restlessness that prevents her from sitting. She admits to very poor sleep wanting a sleeping med. She talks at length about the son of a first cousin who is a murderer and she needs to "call the police right now", that he's on a killing spree and says that her sister Carol will confirm it. With some persistence, she is able to focus away from this to talk about her own treatment. She acknowledges the need for stronger meds, agreeing that she has been unstable since she asked to have her meds decreased as an OP. She agrees to a trial of Invega, but not to the Invega Sustenna AHUMADA. She denies aud/vis hallucinations. Nursing reports that she is intrusive into others' conversation, and had extremely poor sleep last night. she is easily agitated and at times inappropriate. Review of Systems Constitutional: + problem reported (restless) ENT: No hearing loss, No unusual epistaxis, No nasal symptoms, No sore throat, No tinnitus, No dental problems, No trouble swallowing, No problem reported Respiratory: No cough, No sputum, No wheezing, No shortness of breath, No dyspnea on exertion, No dyspnea at rest, No hemoptysis, No problem reported Cardiovascular: No chest pain, No orthopnea, No PND, No edema, No claudication , No palpitations, No problem reported Abdomen: No pain, No nausea, No vomiting, No diarrhea, No constipation, No GI bleeding, No problem reported Musculoskeletal: + problem reported (pain all over) Neurologic: No memory loss, No paralysis, No weakness, No numbness/tingling, No vertigo, No balance problems, No problem reported Psychiatric: + problem reported (delusions) Integumentary: + problem reported (healing scratch on forehead) Sleep Information Total Hours of Sleep: 2.25 Meal Information Percent of Breakfast Consumed: 100 Percent of Lunch Consumed: 75 Percent of Dinner Consumed: 25 Mental Status Exam During interview pt is: cooperative Appearance: disheveled Eye contact is: good (at times staring) Motor behavior is: psychomotor agitation, akathisia Speech: is pressured Affect: labile Mood is: anxious Thought process: tangential, flight of ideas Thought content: delusions Suicidal thought are: denied Homicidal thoughts are: denied Hallucinations: denies auditory, denies visual Cognition: language grossly intact, other (memory and attention are impaired) Intelligence estimated to be: average Insight: severely impaired Judgement: severely impaired Medication Trials Remeron, Prozac, Wellbutrin, Celexa, Paxil (?withdrawal seizure), Zoloft Seroquel, Saphris, Zyprexa, Risperdal, Geodon, Abilify (GI), Vraylar 2017 (3 mg) , Haldol cogentin, amantadine buspar, klonopin, Ativan trazodone, neurontin Depakote (helpful), lithium (nonspecific bad reaction) Impression Remains with flight of ideas, high energy and impaired sleep. Agrees to a trial of Invega as seroquel does not appear to be potent enough to stop this episode. Nursing has confirmed a copay for the oral would be $3.00 or so per month. Will start 3 mg. HS and continue Seroquel tonight. If tolerated will switch seroquel out and continue to discuss the benefits of an AHUMADA. We will order ibuprofen for her pain, and a one time dose of Artane 5 mg. for akathisia and consider scheduled if effective. Plan (1) Schizoaffective disorder 04/17--The patient is admitted to [facility] ([facility] mental health unit) on q 15 min checks (behavioral with suicide precautions) for safety. The patient will participate in group, recreational and milieu therapies and will be offered additional individual and family sessions as clinically appropriate. Case reviewed with outpatient psychiatrist. She is agreeable to restart higher dose of Seroquel and will take 200 mg this hs with additional 100 mg po prn, likely should be retitrated to at least [address] Decker would support retrial of adjunctive depakote and/or conversion to injectable. multiple prns ordered should she become agitated, MNPR given unpredictable behavior 04/18 - increase quetiapine to 300 mg daily at bedtime and continue 100 mg when necessary dose. Continue haloperidol 5 mg and lorazepam 2 mg as needed. Continue benztropine as needed. - Consider Depakote versus more potent antipsychotic with a long acting injectable option. Today she is unwilling/unable to participate in the discussion of medication options. - Fasting lipid profile and glucose performed today and were normal. - Continue medically necessary private room due to psychosis and agitation/ aggression. 04/19 - Start Invega 3 mg. HS, continue Seroquel for now. - Continue to encourage AHUAMDA Sustenna - may have akathisia, will have staff attempt a Garcia Akathisia Rating Scale - Artane 5 mg. NOW - Complaining of pain. Will order Ibuprofen 600 mg. QID prn (2) Benzodiazepine abuse patient is unable to participate in meaningful discussion around this and ETOH use, unclear if use disorder on the latter and will cover with [facility] protocol. Outpatient provider is clear he will no longer rx any benzos for this patient (3) Hypothyroidism TSH >5 on admission, repeat panel. 04/18 - repeat TSH elevated at 6.8, but free T4 normal at 1.17. (4) Legal intervention active arrest warrant for terroristic threats 04/18 - patient signed release for police, social services contacted them and they confirmed that they will be picking her up at discharge. Discharge / Aftercare Planning Primary Care Physician: Name: Chanel Mujica PA Psychiatrist: Name: Dr Decker, [facility] [employer] Therapist: Name: None [place]: Name: Justin Alexandra-Sandy [employer] [employer] Strengths: intelligent, has outpatient psychiatrist, willing to take PO meds at this point Needs: therapist/community resources outside of [facility], clarification of legal situation Risk Factors Assessment : Yes /single/: Yes Higher / Fall in social status: Yes Access to guns: No Health problems: No Mental Health Diagnoses: Yes Previous attempt: Yes Previous psychiatric stay: Yes Protective Factors Assessment : No Data Vital Signs Last 24 Hrs: Date Time Temp Pulse Resp B/P (MAP) Pulse Ox O2 Delivery O2 Flow Rate FiO2 04/19/17 06:59 36.6 91 18 117/81 92 116/80 Meds Administered Last 24 Hrs: Meds Administered (Past 24Hrs) Medications (Trade) Dose Ordered Sig/[place] Route Start Time Stop Time Status Last Admin Dose Admin Quetiapine Fumarate (seroQUEL TAB) 200 mg HS PO 04/17/17 22:00 04/18/17 09:47 DC 04/17/17 20:35 200 MG Quetiapine Fumarate (seroQUEL TAB) 300 mg HS PO 04/18/17 22:00 05/17/17 21:59 04/18/17 20:42 300 MG Problem Qualifiers (1) Schizoaffective disorder: Schizoaffective disorder type: bipolar Qualified Codes: F25.0 - Schizoaffective disorder, bipolar type
[2017-04-19] MEDS: QUETIAPINE FUMARATE 100 MG TAB PO SCH (21:24)
[2017-04-19] MEDS: PALIPERIDONE 3 MG TABCR PO SCH ×2 (21:25→23:04)
[2017-04-19] MEDS: ALUMINUM/MAGNESIUM SUSP 30 ML UDC PO PRN (21:28)
[2017-04-19] MEDS: IBUPROFEN 600 MG TAB PO PRN (23:05)
[2017-04-19] MEDS: QUETIAPINE FUMARATE 100 MG TAB PO PRN (23:37)
[2017-04-20] MEDS: ALBUTEROL HFA 8 GM INHALER INH PRN ×3 (05:45→19:20)
[2017-04-20 06:49] VITALS: BP_SYST 121; BP_SYST 127; BP_DIAS 84; BP_DIAS 85; PULSE 84; PULSE 86; TEMP 36.5
[2017-04-20] MEDS: CHOLECALCIFEROL 1000 INTER.UNIT TAB PO SCH (07:39)
[2017-04-20] MEDS: RANITIDINE HCL 150 MG TAB PO SCH ×2 (07:39→20:57)
[2017-04-20] MEDS: LACTOBACILLUS ACIDOPHILUS (FLORANEX) TAB PO SCH ×2 (07:39→20:56)
[2017-04-20] MEDS: LEVOTHYROXINE 100 MCG TAB PO SCH (07:39)
[2017-04-20] MEDS: DOCUSATE SODIUM 100 MG CAP PO SCH ×2 (07:39→20:56)
[2017-04-20] MEDS: PSYLLIUM 58.6% PWD PACK S\\F PO SCH (07:41)
[2017-04-20] MEDS: BENZTROPINE MESYLATE 1 MG TAB PO PRN (07:41)
[2017-04-20] MEDS: HALOPERIDOL 5 MG TAB PO PRN ×2 (07:41→22:00)
[2017-04-20] MEDS: [UNRECOGNIZED DRUG - OTHER] SCH ×3 (08:00→16:00)
[2017-04-20] MEDS: IBUPROFEN 600 MG TAB PO PRN ×3 (08:27→22:27)
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
[2017-04-20] MEDS: hydrOXYzine HCL 25 MG TAB PO PRN ×3 (09:42→23:46)
[2017-04-20] MEDS: QUETIAPINE FUMARATE 100 MG TAB PO PRN ×2 (11:37→23:58)
[2017-04-20] MEDS: ACETAMINOPHEN 325 MG TAB PO PRN ×2 (11:55→23:47)
[2017-04-20] MEDS: ALUMINUM/MAGNESIUM SUSP 30 ML UDC PO PRN (18:18)
[2017-04-20] MEDS: PALIPERIDONE 3 MG TABCR PO SCH (20:57)
[2017-04-20] MEDS: QUETIAPINE FUMARATE 100 MG TAB PO SCH (20:57)
[2017-04-21] MEDS: ALBUTEROL HFA 8 GM INHALER INH PRN ×3 (06:49→21:17)
[2017-04-21 06:50] VITALS: BP_SYST 114; BP_SYST 126; BP_DIAS 72; BP_DIAS 80; PULSE 82; PULSE 91; TEMP 36.6
[2017-04-21] MEDS: LEVOTHYROXINE 100 MCG TAB PO SCH (06:50)
--- NOTE | 2017-04-21 07:52 | Psychiatric Progress Notes ---
Progress Note Date of Service Apr 21, 2017. Interval History Lorna Piedra is a 61-year-old female admitted on Apr 16, 2017 at 22:19 who currently lives in [place] alone. Lorna Piedra was admitted on a 302 involuntary commitment. Patient is admitted from the ED where she required multiple chemical and physical restraints for agitation. The patient was brought to the ED by the police and there is an active warrant for her arrest on multiple counts of terroristic threats. The police are to be notified prior to discharge. Chief Complaint "I don't need to be here". Subjective Patient was seen & assessed interval progress reviewed with Nursing. Staff report she remains hyperverbal, tangential, pressured, labile, frequently upset and tearful, and made threatening statements that she would "kick in the doctor' s teeth if she tries to give me that medication I had yesterday." She was intrusive with poor boundaries and required frequent redirection. She requests numerous when necessary medications throughout the day, including quetiapine, hydroxyzine, haloperidol, benztropine, in addition to scheduled Invega. She has not yet been able to tolerate groups, and is inappropriate in her interactions with peers. She attempted take food off of other patient's trays. She carries 2-3 drinks with her at all times, and covered all the chairs in the day room with towels, as she said she did not want toxins to enter her body. She came to the nurse's station overnight reporting that she had defecated in her bed, but did not want to clean her sheets until the following morning. She frequently tell staff that she cannot breathe, although her respiratory exam is normal and she appears to be breathing without difficulty. This morning, the patient attended her 303 hearing which she contested, testifying that she wanted to apologize to everyone she threatened and harmed, and that she doesn't want to be intrusive and difficult, "but I just can't help myself." She talked about wanting to thank the police, staff and others involved in her admission for "making me clean up my act, both literally and figuratively," and said that now that she has "the magic formula" she is ready to leave. 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 She does not seem to understand that she has a warrant out for her arrest and the police will pick her up at discharge, even though she has been informed of this multiple times. She continues to state that she is going home and doesn't need to be in the hospital any longer. She switches rapidly from praising staff and her treatment to derogatory statements, and will say that she is unable to speak because she is so short of breath, then goes on to talk excessively in a pressured fashion. Met with her case preparer and liner and hospital community mental health social worker, reviewed disposition to prison and need to contact the forensic case preparer and liner to coordinate care with her while she is incarcerated. Her case preparer and liner reported that she had been manic for about 6 months prior to this admission, but refused the recommendations for inpatient treatment, and was not committable. She lives alone, but has 2 adult sons who live locally and may be able to assist in her treatment. He agreed with recommendations for long-acting injectable antipsychotic. Review of Systems Denies pain, GI upset, sedation, URI symptoms, UTI symptoms. Sleep Information Total Hours of Sleep: 7.25 Meal Information Percent of Breakfast Consumed: 75 Percent of Lunch Consumed: 90 Percent of Dinner Consumed: 100 Mental Status Exam During interview pt is: alert and oriented, other (partially cooperative, but irritable and labile) Appearance: appropriately dressed, disheveled Eye contact is: fair Motor behavior is: steady gait & station, psychomotor agitation (restlessness) Speech: is pressured (hyperverbal, loud at times) Affect: tearful, labile, irritable, other (mood switches rapidly from expansive and laughing to angry to tearful) Thought process: tangential, flight of ideas, looseness of associations Thought content: paranoid (talks about being "a guinea pig"), delusions Suicidal thought are: denied Homicidal thoughts are: denied (but admits that she threatened her neighbors and police on the day of admission) Hallucinations: denies auditory, denies visual Cognition: language grossly intact, other (memory and attention are impaired) Intelligence estimated to be: average Insight: severely impaired Judgement: severely impaired Medication Trials Remeron, Prozac, Wellbutrin, Celexa, Paxil (?withdrawal seizure), Zoloft Seroquel, Saphris, Zyprexa, Risperdal, Geodon, Abilify (GI), Vraylar 2017 (3 mg) , Haldol cogentin, amantadine buspar, klonopin, Ativan trazodone, neurontin Depakote (helpful), lithium (nonspecific bad reaction) Impression Remains severely manic, with flight of ideas, excessive pressured speech, disorganized and intrusive behavior, labile mood, excessive energy and impaired sleep. Agreed to a trial of Invega as seroquel does not appear to be potent enough to stop this episode, and it was started 04/19/2017. Plan (1) Schizoaffective disorder 04/17--The patient is admitted to [facility] ([facility] unit) on q 15 min checks (behavioral with suicide precautions) for safety. The patient will participate in group, recreational and milieu therapies and will be offered additional individual and family sessions as clinically appropriate. Case reviewed with outpatient psychiatrist. She is agreeable to restart higher dose of Seroquel and will take 200 mg this hs with additional 100 mg po prn, likely should be retitrated to at least [address] Decker would support retrial of adjunctive depakote and/or conversion to injectable. multiple prns ordered should she become agitated, MNPR given unpredictable behavior 04/18 - increase quetiapine to 300 mg daily at bedtime and continue 100 mg when necessary dose. Continue haloperidol 5 mg and lorazepam 2 mg as needed. Continue benztropine as needed. - Consider Depakote versus more potent antipsychotic with a long acting injectable option. Today she is unwilling/unable to participate in the discussion of medication options. - Fasting lipid profile and glucose performed today and were normal. - Continue medically necessary private room due to psychosis and agitation/ aggression. 04/19 - Start Invega 3 mg. HS, continue Seroquel for now. - Continue to encourage AHUMADA Sustenna - May have akathisia, will have staff attempt a Garcia Akathisia Rating Scale - Artane 5 mg. NOW - Complaining of pain. Will order Ibuprofen 600 mg. QID prn 04/20 - Increase paliperidone to 6mg qhs. Continue quetiapine 300 mg daily at bedtime for now, due to severity of manic symptoms, and prn quetiapine (100 mg every 6 hours when necessary) and haloperidol/lorazepam for agitation. Could consider when necessary chlorpromazine if quetiapine is not beneficial, or clonazepam. - File for 303 commitment, hearing to be held tomorrow. Patient informed. - Coordinate care with Dr. Decker at the patient's request. - Continue MNPR due to severity of mirna, disorganization, and irritability. 04/21 - 303 commitment granted. - Continue Invega 6 mg daily and quetiapine 300 mg daily at bedtime. We will continue to discuss the recommendations for long-acting injectable ( Sustenna), and hopefully she will agree to this. This is indicated due to her noncompliance with oral medications, severity of symptoms, and we'll also ensure that she is medicated while in prison. - technicians and trades workers to contact forensic case preparer and liner, Mray Shah, so that she can follow the patient while incarcerated. - Continue medically necessary private room due to severity of mirna and erratic, inappropriate behaviors. - The patient may be able to start making plans for a family meeting, possibly with sister or adult sons. (2) Benzodiazepine abuse Patient is unable to participate in meaningful discussion around this and ETOH use, unclear if use disorder on the latter and will cover with AWSS protocol. Outpatient provider is clear he will no longer rx any benzos for this patient. 04/19 - patient continues to demand multiple controlled substances, including stimulants, benzodiazepines, and CBD oil. Would not recommend she be prescribed any controlled substances outside of the hospital due to the high risk of abuse/misuse/exacerbation of symptoms. - No signs of alcohol or benzodiazepine withdrawal, so we'll discontinue AWSS protocol. (3) Hypothyroidism TSH >5 on admission, repeat panel. 04/18 - repeat TSH elevated at 6.8, but free T4 normal at 1.17. (4) Legal intervention active arrest warrant for terroristic threats 04/18 - patient signed release for police, community mental health social worker contacted them and they confirmed that they will be picking her up at discharge. 04/21 - community mental health social worker to contact Mary Shah, forensic case preparer and liner, so that she can follow with the patient while in prison. Discharge / Aftercare Planning Primary Care Physician: Name: Chanel Mujica PA Psychiatrist: Name: Dr Decker, [facility] Therapist: Name: None Board Certified Arts Therapist: Name: Justin Cornell Visit Code E&M Code: 13544 Inventory Assets Strengths: intelligent, has outpatient psychiatrist, willing to take PO meds at this point Needs: therapist/community resources outside of [facility], clarification of legal situation Risk Factors Assessment : Yes /single/: Yes Higher / Fall in social status: Yes Access to guns: No Health problems: No Mental Health Diagnoses: Yes Substance use disorders: Yes Previous attempt: Yes Previous psychiatric stay: Yes Protective Factors Assessment : No Responsible for young children: No Employed: No Supportive family: Yes (sister is POA) Data Vital Signs Last 24 Hrs: Date Time Temp Pulse Resp B/P (MAP) Pulse Ox O2 Delivery O2 Flow Rate FiO2 04/21/17 06:50 36.6 82 18 126/80 91 114/72 Meds Administered Last 24 Hrs: Meds Administered (Past 24Hrs) Medications (Trade) Dose Ordered Sig/[place] Route Start Time Stop Time Status Last Admin Dose Admin Trihexyphenidyl HCl (Artane Tab) 5 mg ONE ONCE PO 04/19/17 15:15 04/19/17 15:19 DC 04/19/17 15:50 5 MG Ibuprofen (Motrin Tab) 600 mg QID PRN PO 04/19/17 15:15 05/19/17 15:14 04/20/17 22:27 600 MG Paliperidone (Invega) 3 mg HS PO 04/19/17 22:00 04/20/17 09:53 DC 04/19/17 23:04 3 MG Quetiapine Fumarate (seroQUEL TAB) 100 mg Q6 PRN PO 04/20/17 10:00 05/17/17 10:29 04/20/17 23:58 100 MG Paliperidone (Invega) 6 mg HS PO 04/20/17 22:00 05/19/17 21:59 04/20/17 20:57 6 MG Problem Qualifiers (1) Schizoaffective disorder: Schizoaffective disorder type: bipolar Qualified Codes: F25.0 - Schizoaffective disorder, bipolar type
[2017-04-21] MEDS: [UNRECOGNIZED DRUG - OTHER] SCH ×3 (08:00→16:00)
[2017-04-21] MEDS: PSYLLIUM 58.6% PWD PACK S\\F PO SCH (08:21)
[2017-04-21] MEDS: DOCUSATE SODIUM 100 MG CAP PO SCH ×2 (08:21→21:04)
[2017-04-21] MEDS: LACTOBACILLUS ACIDOPHILUS (FLORANEX) TAB PO SCH ×2 (08:21→21:05)
[2017-04-21] MEDS: CHOLECALCIFEROL 1000 INTER.UNIT TAB PO SCH (08:23)
[2017-04-21] MEDS: QUETIAPINE FUMARATE 100 MG TAB PO PRN ×2 (08:24→22:00)
[2017-04-21] MEDS: RANITIDINE HCL 150 MG TAB PO SCH ×2 (08:24→21:05)
[2017-04-21] MEDS: IBUPROFEN 600 MG TAB PO PRN ×2 (08:30→15:22)
[2017-04-21] MEDS: BENZTROPINE MESYLATE 1 MG TAB PO PRN ×2 (08:59→19:19)
[2017-04-21] MEDS: HALOPERIDOL 5 MG TAB PO PRN ×2 (08:59→19:19)
[2017-04-21] MEDS: hydrOXYzine HCL 25 MG TAB PO PRN ×2 (10:14→17:17)
[2017-04-21] MEDS: ACETAMINOPHEN 325 MG TAB PO PRN (12:59)
[2017-04-21] MEDS: PALIPERIDONE 3 MG TABCR PO SCH (21:05)
[2017-04-21] MEDS: QUETIAPINE FUMARATE 100 MG TAB PO SCH (21:05)
[2017-04-22] MEDS: hydrOXYzine HCL 25 MG TAB PO PRN ×3 (00:42→14:08)
[2017-04-22] MEDS: IBUPROFEN 600 MG TAB PO PRN ×4 (00:47→21:26)
[2017-04-22 06:48] VITALS: BP_SYST 117; BP_SYST 118; BP_DIAS 77; BP_DIAS 84; PULSE 90; PULSE 96; TEMP 36.7
[2017-04-22 06:49] VITALS: BP_SYST 107; BP_SYST 108; BP_DIAS 66; BP_DIAS 69; PULSE 90; PULSE 96; TEMP 36.7
[2017-04-22] MEDS: LEVOTHYROXINE 100 MCG TAB PO SCH (07:43)
[2017-04-22] MEDS: ALBUTEROL HFA 8 GM INHALER INH PRN ×3 (07:44→19:11)
[2017-04-22] MEDS: [UNRECOGNIZED DRUG - OTHER] SCH ×3 (08:00→16:00)
[2017-04-22] MEDS: HALOPERIDOL 5 MG TAB PO PRN (08:18)
[2017-04-22] MEDS: DOCUSATE SODIUM 100 MG CAP PO SCH ×2 (09:04→21:26)
[2017-04-22] MEDS: RANITIDINE HCL 150 MG TAB PO SCH ×2 (09:04→21:27)
[2017-04-22] MEDS: LACTOBACILLUS ACIDOPHILUS (FLORANEX) TAB PO SCH ×2 (09:04→21:26)
[2017-04-22] MEDS: CHOLECALCIFEROL 1000 INTER.UNIT TAB PO SCH (09:04)
[2017-04-22] MEDS: PSYLLIUM 58.6% PWD PACK S\\F PO SCH (09:04)
[2017-04-22] MEDS: BENZTROPINE MESYLATE 1 MG TAB PO PRN (10:30)
[2017-04-22] MEDS: QUETIAPINE FUMARATE 100 MG TAB PO PRN (10:31)
--- NOTE | 2017-04-22 16:11 | Psychiatric Progress Notes ---
Progress Note Date of Service Apr 22, 2017. Interval History Lorna Piedra is a 61-year-old female admitted on Apr 16, 2017 at 22:19 who currently lives in [place] alone. Lorna Piedra was admitted on a 302 involuntary commitment. Patient is admitted from the ED where she required multiple chemical and physical restraints for agitation. The patient was brought to the ED by the police and there is an active warrant for her arrest on multiple counts of terroristic threats. The police are to be notified prior to discharge. Chief Complaint "Hi Marichuy". Subjective Patient was seen & assessed interval progress reviewed with Treatment Team. Pt was granted 303 commitment in hearing yesterday. Staff report broken sleep for patient last evening and state she continues to appear manic and uncomfortable. Initial plan for patient is to increase dose of PO Invega to 9mg with potential to start Sustenna eventually. She reports she would like Haldol regularly as she feels it is helpful, which was a consideration prior to this encounter. Pt states she is unwilling for increase in Invega at this time because "I know my body, and it isn't working". Pt continues to appear manic as she is easily distracted and roams around the room during our conversation. She feels that she is doing well, but "I need to stop talking, I'm out of breath ". Review of Systems Psych: denies symptoms other than stated above Constitutional: denied Cardiovascular: denied GI: denied Neurologic: denied Remainder of 10 body systems also reviewed and denied other than noted above. Sleep Information Total Hours of Sleep: 5.50 Meal Information Percent of Breakfast Consumed: 100 Percent of Lunch Consumed: 100 Percent of Dinner Consumed: 100 Mental Status Exam During interview pt is: alert and oriented, other (cooperative, with irritability about medication suggestions) Appearance: appropriately dressed, disheveled Eye contact is: good Motor behavior is: steady gait & station, psychomotor agitation (restlessness, frequently changing activities) Speech: is pressured (hyperverbal) Affect: labile, euthymic Mood is: other ("good") Thought process: flight of ideas, looseness of associations Thought content: cognitive distortions, delusions Suicidal thought are: denied Homicidal thoughts are: denied (reports of threats at admission) Hallucinations: denies auditory, denies visual Cognition: language grossly intact, other (impairment with memory and attention ) Intelligence estimated to be: average Insight: severely impaired Judgement: severely impaired Medication Trials Remeron, Prozac, Wellbutrin, Celexa, Paxil (?withdrawal seizure), Zoloft Seroquel, Saphris, Zyprexa, Risperdal, Geodon, Abilify (GI), Vraylar 2017 (3 mg) , Haldol cogentin, amantadine buspar, klonopin, Ativan trazodone, neurontin Depakote (helpful), lithium (nonspecific bad reaction) Impression Mirna is ongoing. She continues to have intrusive behavior and appears to be disorganized in thought and action. She has excessive energy. Pt is agreeable to scheduled Haldol 5mg BID. She is unwilling for increase in Invega at this time. Will continue to explore options as symptoms have only shown minimal improvement since admission. Could attempt increase of Invega if willing tomorrow or discuss Trilafon or Depakote as potential options. Remains necessary for inpatient admission as she is disorganized and unable to function outside of hospital setting. Risk of harm to self or others if discharged prematurely. Plan (1) Schizoaffective disorder 04/17--The patient is admitted to [facility] ([facility] inpatient mental health unit) on q 15 min checks (behavioral with suicide precautions) for safety. The patient will participate in group, recreational and milieu therapies and will be offered additional individual and family sessions as clinically appropriate. Case reviewed with outpatient psychiatrist. She is agreeable to restart higher dose of Seroquel and will take 200 mg this hs with additional 100 mg po prn, likely should be retitrated to at least [address] Decker would support retrial of adjunctive depakote and/or conversion to injectable. multiple prns ordered should she become agitated, MNPR given unpredictable behavior 04/18 - increase quetiapine to 300 mg daily at bedtime and continue 100 mg when necessary dose. Continue haloperidol 5 mg and lorazepam 2 mg as needed. Continue benztropine as needed. - Consider Depakote versus more potent antipsychotic with a long acting injectable option. Today she is unwilling/unable to participate in the discussion of medication options. - Fasting lipid profile and glucose performed today and were normal. - Continue medically necessary private room due to psychosis and agitation/ aggression. 04/19 - Start Invega 3 mg. HS, continue Seroquel for now. - Continue to encourage AHUMADA Sustenna - May have akathisia, will have staff attempt a Garcia Akathisia Rating Scale - Artane 5 mg. NOW - Complaining of pain. Will order Ibuprofen 600 mg. QID prn 04/20 - Increase paliperidone to 6mg qhs. Continue quetiapine 300 mg daily at bedtime for now, due to severity of manic symptoms, and prn quetiapine (100 mg every 6 hours when necessary) and haloperidol/lorazepam for agitation. Could consider when necessary chlorpromazine if quetiapine is not beneficial, or clonazepam. - File for 303 commitment, hearing to be held tomorrow. Patient informed. - Coordinate care with Dr. Decker at the patient's request. - Continue MNPR due to severity of mirna, disorganization, and irritability. 04/21 - 303 commitment granted. - Continue Invega 6 mg daily and quetiapine 300 mg daily at bedtime. We will continue to discuss the recommendations for long-acting injectable ( Sustenna), and hopefully she will agree to this. This is indicated due to her noncompliance with oral medications, severity of symptoms, and we'll also ensure that she is medicated while in assisted. - drum worker to contact forensic case management director, Mary Shah, so that she can follow the patient while incarcerated. - Continue medically necessary private room due to severity of mirna and erratic, inappropriate behaviors. - The patient may be able to start making plans for a family meeting, possibly with sister or adult sons. 04/22 - Haldol 5mg BID scheduled as patient has found it helpful with restlessness and agitation. - Continue Invega 6mg daily and 300mg quetiapine at bedtime. Unwilling for increase in Invega at this time, but may be more willing tomorrow. - Continue MNPR due to current manic episode and irritability. (2) Benzodiazepine abuse Patient is unable to participate in meaningful discussion around this and ETOH use, unclear if use disorder on the latter and will cover with [facility] protocol. Outpatient provider is clear he will no longer rx any benzos for this patient. 04/19 - patient continues to demand multiple controlled substances, including stimulants, benzodiazepines, and CBD oil. Would not recommend she be prescribed any controlled substances outside of the hospital due to the high risk of abuse/misuse/exacerbation of symptoms. - No signs of alcohol or benzodiazepine withdrawal, so we'll discontinue AWSS protocol. (3) Hypothyroidism TSH >5 on admission, repeat panel. 04/18 - repeat TSH elevated at 6.8, but free T4 normal at 1.17. (4) Legal intervention active arrest warrant for terroristic threats 04/18 - patient signed release for police, social contact worker contacted them and they confirmed that they will be picking her up at discharge. 04/21 - social contact worker to contact Mary Shah, forensic case management director, so that she can follow with the patient while in assisted. Discharge / Aftercare Planning Primary Care Physician: Name: Chanel Mujica PA Psychiatrist: Name: Dr Decker, [facility] Therapist: Name: Pia Stove Mechanic: Name: Justin OrtizSandy [employer] Visit Code E&M Code: 46056 Inventory Assets Strengths: intelligent, has outpatient psychiatrist, willing to take PO meds at this point Needs: therapist/community resources outside of [facility], clarification of legal situation Risk Factors Assessment : Yes /single/: Yes Higher / Fall in social status: Yes Access to guns: No Health problems: No Mental Health Diagnoses: Yes Substance use disorders: Yes Previous attempt: Yes Previous psychiatric stay: Yes Protective Factors Assessment : No Responsible for young children: No Employed: No Supportive family: Yes (sister is POA) Data Vital Signs Last 24 Hrs: Date Time Temp Pulse Resp B/P (MAP) Pulse Ox O2 Delivery O2 Flow Rate FiO2 04/22/17 06:49 36.7 90 20 108/66 96 107/69 04/22/17 06:48 36.7 90 20 118/77 96 117/84 Meds Administered Last 24 Hrs: Meds Administered (Past 24Hrs) Medications (Trade) Dose Ordered Sig/[place] Route Start Time Stop Time Status Last Admin Dose Admin Paliperidone (Invega) 6 mg HS PO 04/20/17 22:00 05/19/17 21:59 04/21/17 21:05 6 MG Problem Qualifiers (1) Schizoaffective disorder: Schizoaffective disorder type: bipolar Qualified Codes: F25.0 - Schizoaffective disorder, bipolar type
[2017-04-22] MEDS: HALOPERIDOL 5 MG TAB PO SCH ×2 (16:44→21:25)
[2017-04-22] MEDS: BOOST BREEZE NUTRITION DRINK 1 BOX PO SCH (17:49)
[2017-04-22] MEDS: FLUTICASONE PROPIONATE NA SPR 16 GM BTL NAE PRN (19:09)
[2017-04-22] MEDS: PALIPERIDONE 3 MG TABCR PO SCH (21:25)
[2017-04-22] MEDS: QUETIAPINE FUMARATE 100 MG TAB PO SCH (21:25)
[2017-04-23] MEDS: ALBUTEROL HFA 8 GM INHALER INH PRN ×4 (02:15→18:17)
[2017-04-23] MEDS: hydrOXYzine HCL 25 MG TAB PO PRN ×2 (02:15→15:33)
[2017-04-23 06:56] VITALS: BP_SYST 118; BP_SYST 120; BP_DIAS 73; BP_DIAS 79; PULSE 85; PULSE 87; TEMP 36.8
[2017-04-23] MEDS: [UNRECOGNIZED DRUG - OTHER] SCH ×3 (08:00→15:23)
[2017-04-23] MEDS: LEVOTHYROXINE 100 MCG TAB PO SCH (08:08)
[2017-04-23] MEDS: HALOPERIDOL 5 MG TAB PO SCH ×2 (09:13→21:05)
[2017-04-23] MEDS: BOOST BREEZE NUTRITION DRINK 1 BOX PO SCH ×3 (09:13→17:36)
[2017-04-23] MEDS: DOCUSATE SODIUM 100 MG CAP PO SCH ×2 (09:13→21:04)
[2017-04-23] MEDS: LACTOBACILLUS ACIDOPHILUS (FLORANEX) TAB PO SCH ×2 (09:13→21:04)
[2017-04-23] MEDS: RANITIDINE HCL 150 MG TAB PO SCH ×2 (09:14→21:05)
[2017-04-23] MEDS: PSYLLIUM 58.6% PWD PACK S\\F PO SCH (09:14)
[2017-04-23] MEDS: CHOLECALCIFEROL 1000 INTER.UNIT TAB PO SCH (09:14)
[2017-04-23] MEDS: BENZTROPINE MESYLATE 1 MG TAB PO PRN ×2 (10:09→15:32)
[2017-04-23] MEDS: IBUPROFEN 600 MG TAB PO PRN (12:21)
--- NOTE | 2017-04-23 13:35 | Psychiatric Progress Notes ---
Progress Note Date of Service Apr 23, 2017. Interval History Lorna Piedra is a 61-year-old female admitted on Apr 16, 2017 at 22:19 who currently lives in [place] alone. Lorna Piedra was admitted on a 302 involuntary commitment. Patient is admitted from the ED where she required multiple chemical and physical restraints for agitation. The patient was brought to the ED by the police and there is an active warrant for her arrest on multiple counts of terroristic threats. The police are to be notified prior to discharge. Chief Complaint "I'm just nervous about the whole ugly deal". Subjective Patient was seen & assessed interval progress reviewed with Nursing. Staff reports patient slept for 6.5 hours last evening with assistance from prn Vistaril. Pt was seen today along with weekend covering psychiatrist, Dr. Aviles. Pt presents a written list of questions to discuss prior to the interview. She states her anxiety is high at the moment, "it's a 10", due to chronic pain in her hip as well as anxiety about "the whole ugly deal". She states she is scared about the potential to go to [facility]. She states she has been confused lately, but reports it has been improving since her admission. She is requesting medications for anxiety and was reminded of her prn Vistaril as benzodiazepine use is not a long-term recommendation. She appeared to understand this idea and was agreeable. She also reports needs for various consults (neurology, podiatry, etc.) and was reminded that our focus would be on her current mental health concerns. She continues to remain hyperverbal and restless, but more organized than previously described. She is unwilling for Invega Sustenna and Depakote at this time as she has tried both in the past. However, she is unable to elaborate on her reactions to the medications. Review of Systems Psych: denies symptoms other than stated above Constitutional: reports chronic hip pain and pain due to fibromyalgia Cardiovascular: denied GI: denied Neurologic: denied Remainder of 10 body systems also reviewed and denied other than noted above. Sleep Information Total Hours of Sleep: 6.50 Meal Information Percent of Breakfast Consumed: 100 Percent of Lunch Consumed: 100 Percent of Dinner Consumed: 100 Mental Status Exam During interview pt is: alert and oriented, cooperative Appearance: appropriately dressed, appropriately groomed Eye contact is: good Motor behavior is: steady gait & station Speech: is pressured (hyperverbal) Affect: irritable (at times with medication recommendations), euthymic Mood is: anxious Thought process: flight of ideas, looseness of associations Thought content: cognitive distortions, delusions Suicidal thought are: denied Homicidal thoughts are: denied (terroristic threats prior to admission leading to arrest warrant ) Hallucinations: denies auditory, denies visual Cognition: language grossly intact, other (memory and attention impaired) Intelligence estimated to be: average Insight: severely impaired Judgement: severely impaired Medication Trials Remeron, Prozac, Wellbutrin, Celexa, Paxil (?withdrawal seizure), Zoloft Seroquel, Saphris, Zyprexa, Risperdal, Geodon, Abilify (GI), Vraylar 2017 (3 mg) , Haldol cogentin, amantadine buspar, klonopin, Ativan trazodone, neurontin Depakote (helpful), lithium (nonspecific bad reaction) Impression Pt continues to display symptoms of mirna, but appears to be a bit more organized than was described at initial admission. Pt reports resistance to medication changes when Invega Sustenna and Depakote trials were questioned. Would ideally make medication changes to reduce need for seroquel, haldol, and invega, but realize tolerability and availability in [facility] and outpatient may be a concern. Remains necessary for inpatient admission as she is disorganized and unable to function outside of hospital setting. Risk of harm to self or others if discharged prematurely. Plan (1) Schizoaffective disorder 04/17--The patient is admitted to [facility] ([facility] unit) on q 15 min checks (behavioral with suicide precautions) for safety. The patient will participate in group, recreational and milieu therapies and will be offered additional individual and family sessions as clinically appropriate. Case reviewed with outpatient psychiatrist. She is agreeable to restart higher dose of Seroquel and will take 200 mg this hs with additional 100 mg po prn, likely should be retitrated to at least [address] Decker would support retrial of adjunctive depakote and/or conversion to injectable. multiple prns ordered should she become agitated, MNPR given unpredictable behavior 04/18 - increase quetiapine to 300 mg daily at bedtime and continue 100 mg when necessary dose. Continue haloperidol 5 mg and lorazepam 2 mg as needed. Continue benztropine as needed. - Consider Depakote versus more potent antipsychotic with a long acting injectable option. Today she is unwilling/unable to participate in the discussion of medication options. - Fasting lipid profile and glucose performed today and were normal. - Continue medically necessary private room due to psychosis and agitation/ aggression. 04/19 - Start Invega 3 mg. HS, continue Seroquel for now. - Continue to encourage AHUMADA Sustenna - May have akathisia, will have staff attempt a Garcia Akathisia Rating Scale - Artane 5 mg. NOW - Complaining of pain. Will order Ibuprofen 600 mg. QID prn 04/20 - Increase paliperidone to 6mg qhs. Continue quetiapine 300 mg daily at bedtime for now, due to severity of manic symptoms, and prn quetiapine (100 mg every 6 hours when necessary) and haloperidol/lorazepam for agitation. Could consider when necessary chlorpromazine if quetiapine is not beneficial, or clonazepam. - File for 303 commitment, hearing to be held tomorrow. Patient informed. - Coordinate care with Dr. Decker at the patient's request. - Continue MNPR due to severity of mirna, disorganization, and irritability. 04/21 - 303 commitment granted. - Continue Invega 6 mg daily and quetiapine 300 mg daily at bedtime. We will continue to discuss the recommendations for long-acting injectable ( Sustenna), and hopefully she will agree to this. This is indicated due to her noncompliance with oral medications, severity of symptoms, and we'll also ensure that she is medicated while in [facility]. - concession worker to contact forensic rn field case manager, Mary Shah, so that she can follow the patient while incarcerated. - Continue medically necessary private room due to severity of mirna and erratic, inappropriate behaviors. - The patient may be able to start making plans for a family meeting, possibly with sister or adult sons. 04/22 - Haldol 5mg BID scheduled as patient has found it helpful with restlessness and agitation. - Continue Invega 6mg daily and 300mg quetiapine at bedtime. Unwilling for increase in Invega at this time, but may be more willing tomorrow. - Continue MNPR due to current manic episode and irritability. 04/23 - Will continue medications as above. Would be ideal to eliminate need for 3 separate agents if possible, but patient is currently resistant to certain medication changes. - Continue MNPR due to manic behavior and irritability, as well as terroristic threat charge pending. - Continue to encourage group participation where appropriate. (2) Benzodiazepine abuse Patient is unable to participate in meaningful discussion around this and ETOH use, unclear if use disorder on the latter and will cover with AWSS protocol. Outpatient provider is clear he will no longer rx any benzos for this patient. 04/19 - patient continues to demand multiple controlled substances, including stimulants, benzodiazepines, and CBD oil. Would not recommend she be prescribed any controlled substances outside of the hospital due to the high risk of abuse/misuse/exacerbation of symptoms. - No signs of alcohol or benzodiazepine withdrawal, so we'll discontinue AWSS protocol. (3) Hypothyroidism TSH >5 on admission, repeat panel. 04/18 - repeat TSH elevated at 6.8, but free T4 normal at 1.17. (4) Legal intervention active arrest warrant for terroristic threats 04/18 - patient signed release for police, social media developer contacted them and they confirmed that they will be picking her up at discharge. 04/21 - social media developer to contact aMry Shah, forensic rn field case manager, so that she can follow with the patient while in [facility]. Discharge / Aftercare Planning Primary Care Physician: Name: Chanel Mujica PA Psychiatrist: [facility] De[facility] Therapist: Name: None Stone Operator: Name: Justin Brice Sophiris Bio Visit Code E&M Code: 64762 Inventory Assets Strengths: intelligent, has outpatient psychiatrist, willing to take PO meds at this point Needs: therapist/community resources outside of [facility], clarification of legal situation Risk Factors Assessment : Yes /single/: Yes Higher / Fall in social status: Yes Access to guns: No Health problems: No Mental Health Diagnoses: Yes Substance use disorders: Yes Previous attempt: Yes Previous psychiatric stay: Yes Protective Factors Assessment : No Responsible for young children: No Employed: No Supportive family: Yes (sister is POA) Data Vital Signs Last 24 Hrs: Date Time Temp Pulse Resp B/P (MAP) Pulse Ox O2 Delivery O2 Flow Rate FiO2 04/23/17 06:56 36.8 87 16 120/73 85 118/79 Meds Administered Last 24 Hrs: Meds Administered (Past 24Hrs) Medications (Trade) Dose Ordered Sig/[place] Route Start Time Stop Time Status Last Admin Dose Admin Haloperidol (Haldol Tab) 5 mg BID PO 04/22/17 16:15 05/16/17 22:29 04/23/17 09:13 5 MG Fluticasone Propionate (Flonase Nasal [place]) 1 sprays DAILY PRN SIVA 04/22/17 16:45 05/22/17 16:44 04/22/17 19:09 1 SPRAYS Enteral Nutritional Formula (Boost Breeze Nutritional Drink) 1 box TIDM PO 04/22/17 17:45 05/22/17 17:44 04/23/17 12:58 1 BOX Problem Qualifiers (1) Schizoaffective disorder: Schizoaffective disorder type: bipolar Qualified Codes: F25.0 - Schizoaffective disorder, bipolar type
[2017-04-23] MEDS: ACETAMINOPHEN 325 MG TAB PO PRN (16:57)
[2017-04-23] MEDS: FLUTICASONE PROPIONATE NA SPR 16 GM BTL NAE PRN (18:17)
[2017-04-23] MEDS: ALUMINUM/MAGNESIUM SUSP 30 ML UDC PO PRN ×2 (18:18→21:32)
[2017-04-23] MEDS: QUETIAPINE FUMARATE 100 MG TAB PO PRN (20:16)
[2017-04-23] MEDS: PALIPERIDONE 3 MG TABCR PO SCH (21:05)
[2017-04-23] MEDS: QUETIAPINE FUMARATE 100 MG TAB PO SCH (21:05)
[2017-04-24] MEDS: hydrOXYzine HCL 25 MG TAB PO PRN ×4 (04:03→22:52)
[2017-04-24 07:04] VITALS: BP_SYST 116; BP_SYST 136; BP_DIAS 69; BP_DIAS 78; PULSE 90; PULSE 98; TEMP 36.6
[2017-04-24] MEDS: IBUPROFEN 600 MG TAB PO PRN (07:09)
[2017-04-24] MEDS: ALBUTEROL HFA 8 GM INHALER INH PRN ×2 (07:51→14:40)
[2017-04-24] MEDS: LEVOTHYROXINE 100 MCG TAB PO SCH (07:53)
[2017-04-24] MEDS: [UNRECOGNIZED DRUG - OTHER] SCH ×3 (08:00→15:57)
--- NOTE | 2017-04-24 08:50 | Psychiatric Progress Notes ---
Progress Note Date of Service Apr 24, 2017. Interval History Lorna Piedra is a 61-year-old female admitted on Apr 16, 2017 at 22:19 who currently lives in [place] alone. Lorna Piedra was admitted on a 302 involuntary commitment. Patient is admitted from the ED where she required multiple chemical and physical restraints for agitation. The patient was brought to the ED by the police and there is an active warrant for her arrest on multiple counts of terroristic threats. The police are to be notified prior to discharge. Chief Complaint "I am Leonardo Rothman". Subjective Patient was seen & assessed interval progress reviewed with Treatment Team Family meeting 1330 today she resisted idea that she may be facing legal charges and possible retirement time.She was encouraged to medication changes that would fit with retirement formulary as a precaution so that she has stability in or out of retirement after hospital discharge. Per SW she was somewhat resistant mood is 100 and happy and is "ungrouchafied" SHe needs less boundary setting than at time of admission Met with patient in her room and she gave her list of requests to include neurology consult, podiatry consult, bid flonase and that Dissociative Identity disorder be added to her records here. SHe accepted the boundaries of provider that further medical consultation is not needed inpatient and her PCM would coordinate any outpatient routine care consultatations, that we can provide flonase bid and that I will not be adding Disoociative diagnosis to her [facility] records without further h/o from outpatient MD"s so not at this time. She continues to decline INvega shots, but with discussion of needing to prepare for medications that would fit formulary at the retirement she agrees to taper off invega and use seorqule and haldol at this time. SHe rates mood as "6....no 7" and rates anxiety as a "4". SHe reports at times restless legs. She denies EPS or dystonia, she states she has "bronchitis" but no obvious cough until mentioned then she coughs one time, no f/c/s, no headaches or chest congestion. States she has an ingrown toenail but provider examined left foot visiually and palpated lateral aspect of great toe which was no redness, no edema and non- tender at this time. Nail was intact and no exudate and blanches with brisk cap refill She denies other physical concerns at this time. Sleep Information Total Hours of Sleep: 5.25 Meal Information Percent of Breakfast Consumed: 100 Percent of Lunch Consumed: 50 Percent of Dinner Consumed: 100 Mental Status Exam During interview pt is: alert and oriented, cooperative Appearance: appropriately dressed, appropriately groomed Eye contact is: good Motor behavior is: steady gait & station Speech: is pressured (hyperverbal) Affect: euthymic (pleaseant and voluble) Mood is: anxious Thought process: tangential, other (has a list but easily distracted but does come back to her list on multiple pages with various pen, crayon and marker notes) Thought content: cognitive distortions, delusions, other (cannot rule out somatic delusions with "bronchitis" and "in grown toe" as no obvious evidence on exam of either) Suicidal thought are: denied Homicidal thoughts are: denied (terroristic threats prior to admission leading to arrest warrant ) Hallucinations: denies auditory, denies visual Cognition: language grossly intact, other (memory and attention impaired) Intelligence estimated to be: average Insight: severely impaired Judgement: severely impaired Medication Trials Remeron, Prozac, Wellbutrin, Celexa, Paxil (?withdrawal seizure), Zoloft Seroquel, Saphris, Zyprexa, Risperdal, Geodon, Abilify (GI), Vraylar 2017 (3 mg) , Haldol cogentin, amantadine buspar, klonopin, Ativan trazodone, neurontin Depakote (helpful), lithium (nonspecific bad reaction) Impression Pt continues to display symptoms of mirna, but appears to be a bit more organized than was described at initial admission. Pt reports resistance to medication changes when Invega Sustenna and Depakote trials were questioned. Would ideally make medication changes to reduce need for seroquel, haldol, and invega, but realize tolerability and availability in retirement and outpatient may be a concern. As of 04/24 she agrees to taper invega in favor of seorquel and haldol. Remains necessary for inpatient admission as she is disorganized and unable to function outside of hospital setting. Risk of harm to self or others if discharged prematurely. Plan (1) Schizoaffective disorder 04/17--The patient is admitted to [facility] (locked inpatient mental health unit) on q 15 min checks (behavioral with suicide precautions) for safety. The patient will participate in group, recreational and milieu therapies and will be offered additional individual and family sessions as clinically appropriate. Case reviewed with outpatient psychiatrist. She is agreeable to restart higher dose of Seroquel and will take 200 mg this hs with additional 100 mg po prn, likely should be retitrated to at least [address] Decker would support retrial of adjunctive depakote and/or conversion to injectable. multiple prns ordered should she become agitated, MNPR given unpredictable behavior 04/18 - increase quetiapine to 300 mg daily at bedtime and continue 100 mg when necessary dose. Continue haloperidol 5 mg and lorazepam 2 mg as needed. Continue benztropine as needed. - Consider Depakote versus more potent antipsychotic with a long acting injectable option. Today she is unwilling/unable to participate in the discussion of medication options. - Fasting lipid profile and glucose performed today and were normal. - Continue medically necessary private room due to psychosis and agitation/ aggression. 04/19 - Start Invega 3 mg. HS, continue Seroquel for now. - Continue to encourage AHUMADA Sustenna - May have akathisia, will have staff attempt a Garcia Akathisia Rating Scale - Artane 5 mg. NOW - Complaining of pain. Will order Ibuprofen 600 mg. QID prn 04/20 - Increase paliperidone to 6mg qhs. Continue quetiapine 300 mg daily at bedtime for now, due to severity of manic symptoms, and prn quetiapine (100 mg every 6 hours when necessary) and haloperidol/lorazepam for agitation. Could consider when necessary chlorpromazine if quetiapine is not beneficial, or clonazepam. - File for 303 commitment, hearing to be held tomorrow. Patient informed. - Coordinate care with Dr. Decker at the patient's request. - Continue MNPR due to severity of mirna, disorganization, and irritability. 04/21 - 303 commitment granted. - Continue Invega 6 mg daily and quetiapine 300 mg daily at bedtime. We will continue to discuss the recommendations for long-acting injectable ( Sustenna), and hopefully she will agree to this. This is indicated due to her noncompliance with oral medications, severity of symptoms, and we'll also ensure that she is medicated while in retirement. - lithopone mill worker to contact forensic top case assembler, Mary Shah, so that she can follow the patient while incarcerated. - Continue medically necessary private room due to severity of mirna and erratic, inappropriate behaviors. - The patient may be able to start making plans for a family meeting, possibly with sister or adult sons. 04/22 - Haldol 5mg BID scheduled as patient has found it helpful with restlessness and agitation. - Continue Invega 6mg daily and 300mg quetiapine at bedtime. Unwilling for increase in Invega at this time, but may be more willing tomorrow. - Continue MNPR due to current manic episode and irritability. 04/23 - Will continue medications as above. Would be ideal to eliminate need for 3 separate agents if possible, but patient is currently resistant to certain medication changes. - Continue MNPR due to manic behavior and irritability, as well as terroristic threat charge pending. - Continue to encourage group participation where appropriate. 04/24 - taper invega to 3mg today and increase haldol from 5mg po bid to 5mg AM and 10mg/hs, continue seroquel 300mg/hs with 100mg q6h prn (taking about one time a day prn) - continue MNPR due to manic behavior, intrusive and talkative and unable to observe boundaries in bedroom space (e.g. talk to roommate incessantly, intrusive in interpersonal space) and terroristic threat charge pending. -encourage group where appropriate (2) Benzodiazepine abuse Patient is unable to participate in meaningful discussion around this and ETOH use, unclear if use disorder on the latter and will cover with AWSS protocol. Outpatient provider is clear he will no longer rx any benzos for this patient. 04/19 - patient continues to demand multiple controlled substances, including stimulants, benzodiazepines, and CBD oil. Would not recommend she be prescribed any controlled substances outside of the hospital due to the high risk of abuse/misuse/exacerbation of symptoms. - No signs of alcohol or benzodiazepine withdrawal, so we'll discontinue AWSS protocol. (3) Hypothyroidism TSH >5 on admission, repeat panel. 04/18 - repeat TSH elevated at 6.8, but free T4 normal at 1.17. (4) Legal intervention active arrest warrant for terroristic threats 04/18 - patient signed release for police, high school social science teacher contacted them and they confirmed that they will be picking her up at discharge. 04/21 - high school social science teacher to contact Mary Shah, forensic top case assembler, so that she can follow with the patient while in retirement. Discharge / Aftercare Planning Primary Care Physician: Name: Chanel Mujica PA Psychiatrist: Name: Dr Decker, [facility] Therapist: Name: None Stockkeeper: Name: Justin Brice Cornell Visit Code E&M Code: 80539 Inventory Assets Strengths: intelligent, has outpatient psychiatrist, willing to take PO meds at this point Needs: therapist/community resources outside of [facility], clarification of legal situation Risk Factors Assessment : Yes /single/: Yes Higher / Fall in social status: Yes Access to guns: No Health problems: No Mental Health Diagnoses: Yes Substance use disorders: Yes Previous attempt: Yes Previous psychiatric stay: Yes Protective Factors Assessment : No Responsible for young children: No Employed: No Supportive family: Yes (sister is PORae) Data Vital Signs Last 24 Hrs: Date Time Temp Pulse Resp B/P (MAP) Pulse Ox O2 Delivery O2 Flow Rate FiO2 04/24/17 07:04 36.6 90 16 116/69 98 136/78 Meds Administered Last 24 Hrs: Meds Administered (Past 24Hrs) Medications (Trade) Dose Ordered Sig/[place] Route Start Time Stop Time Status Last Admin Dose Admin Haloperidol (Haldol Tab) 5 mg BID PO 04/22/17 16:15 05/16/17 22:29 04/23/17 21:05 5 MG Fluticasone Propionate (Flonase Nasal [place]) 1 sprays DAILY PRN SIVA 04/22/17 16:45 05/22/17 16:44 04/23/17 18:17 1 SPRAYS Enteral Nutritional Formula (Boost Breeze Nutritional Drink) 1 box TIDM PO 04/22/17 17:45 05/22/17 17:44 04/23/17 17:36 1 BOX Problem Qualifiers (1) Schizoaffective disorder: Schizoaffective disorder type: bipolar Qualified Codes: F25.0 - Schizoaffective disorder, bipolar type
[2017-04-24] MEDS: BOOST BREEZE NUTRITION DRINK 1 BOX PO SCH ×3 (09:05→17:24)
[2017-04-24] MEDS: DOCUSATE SODIUM 100 MG CAP PO SCH ×2 (09:06→21:17)
[2017-04-24] MEDS: LACTOBACILLUS ACIDOPHILUS (FLORANEX) TAB PO SCH ×2 (09:06→21:17)
[2017-04-24] MEDS: HALOPERIDOL 5 MG TAB PO SCH ×2 (09:06→21:19)
[2017-04-24] MEDS: PSYLLIUM 58.6% PWD PACK S\\F PO SCH (09:07)
[2017-04-24] MEDS: CHOLECALCIFEROL 1000 INTER.UNIT TAB PO SCH (09:07)
[2017-04-24] MEDS: RANITIDINE HCL 150 MG TAB PO SCH ×2 (09:07→21:17)
[2017-04-24] MEDS: BENZTROPINE MESYLATE 1 MG TAB PO PRN (13:16)
[2017-04-24] MEDS: FLUTICASONE PROPIONATE NA SPR 16 GM BTL NAE PRN (14:39)
[2017-04-24] MEDS: QUETIAPINE FUMARATE 100 MG TAB PO SCH (21:17)
[2017-04-24] MEDS: PALIPERIDONE 3 MG TABCR PO SCH (21:17)
[2017-04-25] MEDS: LEVOTHYROXINE 100 MCG TAB PO SCH (07:45)
[2017-04-25 07:56] VITALS: BP_SYST 105; BP_SYST 118; BP_DIAS 64; BP_DIAS 78; PULSE 80; PULSE 90; TEMP 37
[2017-04-25] MEDS: [UNRECOGNIZED DRUG - OTHER] SCH ×3 (08:00→15:36)
[2017-04-25] MEDS: DOCUSATE SODIUM 100 MG CAP PO SCH ×2 (09:09→21:07)
[2017-04-25] MEDS: CHOLECALCIFEROL 1000 INTER.UNIT TAB PO SCH (09:10)
[2017-04-25] MEDS: LACTOBACILLUS ACIDOPHILUS (FLORANEX) TAB PO SCH ×2 (09:10→21:08)
[2017-04-25] MEDS: HALOPERIDOL 5 MG TAB PO SCH ×2 (09:10→21:07)
[2017-04-25] MEDS: RANITIDINE HCL 150 MG TAB PO SCH ×2 (09:10→21:09)
[2017-04-25] MEDS: PSYLLIUM 58.6% PWD PACK S\\F PO SCH (09:14)
[2017-04-25] MEDS: hydrOXYzine HCL 25 MG TAB PO PRN ×3 (09:17→18:15)
--- NOTE | 2017-04-25 11:01 | Psychiatric Progress Notes ---
Progress Note Date of Service Apr 25, 2017. Interval History Lorna Piedra is a 61-year-old female admitted on Apr 16, 2017 at 22:19 who currently lives in [place] alone. Lorna Piedra was admitted on a 302 involuntary commitment. Patient is admitted from the ED where she required multiple chemical and physical restraints for agitation. The patient was brought to the ED by the police and there is an active warrant for her arrest on multiple counts of terroristic threats. The police are to be notified prior to discharge. Chief Complaint "I need to be able to breathe, I have black mucus in my lungs". Subjective Patient was seen & assessed interval progress reviewed with Treatment Team. Staff report she has been asking for her Albuterol inhaler frequently, although her lungs have been clear on auscultation. An order was written over the weekend that a lung exam by performed prior to administering Albuterol due to concerns it was exacerbating her manic symptoms. She had a family meeting with her sister yesterday, and they discussed their strained relationship which vacillates between wanting to support one another and being bitter about past wrongs. They discussed her current legal charges and her sister pointed out that there were 8 police officers involved with the incident prior to admission. The patient continues to believe that her water at home has been poisoned, and that all of this could've been avoided if her neighbors would have just given her the [place] water. Her sister expressed concerns about how the patient will do in [facility]. Staff had contacted the [facility] and determined that Invega was nonformulary, and as the patient refused Invega Sustenna, she was tapered off Invega and Seroquel increased. The patient refused many medications that were recommended for her. Today she was seen with Socorro Lala PA-C, with her permission. She states she is upset because "you took my Albuterol away, I need that to breathe..." She talks at length about her COPD and need for medications because she can't breathe. She is aware that their is a concern that Albuterol could exacerbate her mirna, "it gets me revved up." She is also aware that her O2 sats were in the high 90s and her lungs are clear on exam, but insists she has "black mucus in her lungs." She repeatedly says she can't talk anymore, because it hurts and she doesn't have breath, but then continues to talk excessively. She says her mood was "minus 10" because she was so upset about her Albuterol. She says she is "frustrated and sad because people won't listen to me." She says she was up all night because she was up changing her clothes frequently as she was sweating in them. She brings in a list of things she wants addressed, mostly in regards to her Albuterol and Flonase, wanting them more frequently. Again reviewed appropriate use of Albuterol and Flonase, and that the orders are in place to ensure she is taking her medications appropriately. She notes cough drops help her to breathe as well, and wants to be able to get them whenever she wants, so that She says she wants "an audience with the police, so I don't get whisked away to [facility]." She also wants mediation "for my nerves," says the hydroxyzine helps. She is in favor of returning to [facility], as she thinks "it' s a good drug for me." Sleep Information Total Hours of Sleep: 6.25 Meal Information Percent of Breakfast Consumed: 50 Percent of Lunch Consumed: 50 Percent of Dinner Consumed: 100 Mental Status Exam During interview pt is: alert and oriented, cooperative Appearance: appropriately dressed, appropriately groomed Eye contact is: good Motor behavior is: steady gait & station, no abnormal motor movements Speech: is pressured (hyperverbal) Affect: other (expansive, mildly irritable) Mood is: other ("-10") Thought process: circumstantial, tangential, perseveration (on Albuterol) Thought content: cognitive distortions, delusions Suicidal thought are: denied Homicidal thoughts are: denied (terroristic threats prior to admission leading to arrest warrant ) Hallucinations: denies auditory, denies visual Cognition: language grossly intact, other (memory and attention impaired) Intelligence estimated to be: average Insight: severely impaired Judgement: severely impaired Medication Trials Remeron, Prozac, Wellbutrin, Celexa, Paxil (?withdrawal seizure), Zoloft Seroquel, Saphris, Zyprexa, Risperdal, Geodon, Abilify (GI), Vraylar 2017 (3 mg) , Haldol cogentin, amantadine buspar, klonopin, Ativan trazodone, neurontin Depakote (helpful), lithium (nonspecific bad reaction) Impression Pt continues to display symptoms of mirna, but appears to be a bit more organized than was described at initial admission. Pt reports resistance to medication changes when Invega Sustenna and Depakote trials were questioned. Would ideally make medication changes to reduce need for Seroquel, Haldol, and Invega, but realize tolerability and availability in [facility] and outpatient may be a concern. As of 04/24 she agrees to taper invega in favor of Seroquel and Haldol. Remains necessary for inpatient admission as she is disorganized and unable to function outside of hospital setting. Risk of harm to self or others if discharged prematurely. Plan (1) Schizoaffective disorder 04/17--The patient is admitted to [facility] ([facility]) on q 15 min checks (behavioral with suicide precautions) for safety. The patient will participate in group, recreational and milieu therapies and will be offered additional individual and family sessions as clinically appropriate. Case reviewed with outpatient psychiatrist. She is agreeable to restart higher dose of Seroquel and will take 200 mg this hs with additional 100 mg po prn, likely should be retitrated to at least [address] Decker would support retrial of adjunctive depakote and/or conversion to injectable. multiple prns ordered should she become agitated, MNPR given unpredictable behavior 04/18 - increase quetiapine to 300 mg daily at bedtime and continue 100 mg when necessary dose. Continue haloperidol 5 mg and lorazepam 2 mg as needed. Continue benztropine as needed. - Consider Depakote versus more potent antipsychotic with a long acting injectable option. Today she is unwilling/unable to participate in the discussion of medication options. - Fasting lipid profile and glucose performed today and were normal. - Continue medically necessary private room due to psychosis and agitation/ aggression. 04/19 - Start Invega 3 mg. HS, continue Seroquel for now. - Continue to encourage AHUMADA Sustenna - May have akathisia, will have staff attempt a Garcia Akathisia Rating Scale - Artane 5 mg. NOW - Complaining of pain. Will order Ibuprofen 600 mg. QID prn 04/20 - Increase paliperidone to 6mg qhs. Continue quetiapine 300 mg daily at bedtime for now, due to severity of manic symptoms, and prn quetiapine (100 mg every 6 hours when necessary) and haloperidol/lorazepam for agitation. Could consider when necessary chlorpromazine if quetiapine is not beneficial, or clonazepam. - File for 303 commitment, hearing to be held tomorrow. Patient informed. - Coordinate care with Dr. Decker at the patient's request. - Continue MNPR due to severity of mirna, disorganization, and irritability. 04/21 - 303 commitment granted. - Continue Invega 6 mg daily and quetiapine 300 mg daily at bedtime. We will continue to discuss the recommendations for long-acting injectable ( Sustenna), and hopefully she will agree to this. This is indicated due to her noncompliance with oral medications, severity of symptoms, and we'll also ensure that she is medicated while in [facility]. - donation worker to contact forensic pillowcase cleaner, Mary Shah, so that she can follow the patient while incarcerated. - Continue medically necessary private room due to severity of mirna and erratic, inappropriate behaviors. - The patient may be able to start making plans for a family meeting, possibly with sister or adult sons. 04/22 - Haldol 5mg BID scheduled as patient has found it helpful with restlessness and agitation. - Continue Invega 6mg daily and 300mg quetiapine at bedtime. Unwilling for increase in Invega at this time, but may be more willing tomorrow. - Continue MNPR due to current manic episode and irritability. 04/23 - Will continue medications as above. Would be ideal to eliminate need for 3 separate agents if possible, but patient is currently resistant to certain medication changes. - Continue MNPR due to manic behavior and irritability, as well as terroristic threat charge pending. - Continue to encourage group participation where appropriate. 04/24 - Taper invega to 3mg today and increase haldol from 5mg po bid to 5mg AM and 10mg/hs, continue seroquel 300mg/hs with 100mg q6h prn (taking about one time a day prn) - Continue MNPR due to manic behavior, intrusive and talkative and unable to observe boundaries in bedroom space (e.g. talk to roommate incessantly, intrusive in interpersonal space) and terroristic threat charge pending. - Encourage group where appropriate. 04/25 - Increase quetiapine to 400mg qhs, and tinea haloperidol 5 mg every morning and 10 mg daily at bedtime, and complete taper off paliperidone. - Continue medically necessary private room. Encourage groups when able to control behavior. (2) Benzodiazepine abuse Patient is unable to participate in meaningful discussion around this and ETOH use, unclear if use disorder on the latter and will cover with AWSS protocol. Outpatient provider is clear he will no longer Rx any benzos for this patient. 04/19 - patient continues to demand multiple controlled substances, including stimulants, benzodiazepines, and CBD oil. Would not recommend she be prescribed any controlled substances outside of the hospital due to the high risk of abuse/misuse/exacerbation of symptoms. - No signs of alcohol or benzodiazepine withdrawal, so we'll discontinue AWSS protocol. (3) Hypothyroidism TSH >5 on admission, repeat panel. 04/18 - repeat TSH elevated at 6.8, but free T4 normal at 1.17. (4) Legal intervention active arrest warrant for terroristic threats 04/18 - patient signed release for police, oncology social work contacted them and they confirmed that they will be picking her up at discharge. 04/21 - oncology social work to contact Mary Shah, forensic pillowcase cleaner, so that she can follow with the patient while in [facility]. Discharge / Aftercare Planning Primary Care Physician: Name: Chanel Mujica PA [facility]iat[facility]: [facility] Therapist: Name: None Porcelain Technician: Name: [facility] Interactive Visit Code E&M Code: 35051 Inventory Assets Strengths: intelligent, has outpatient psychiatrist, willing to take PO meds at this point Needs: therapist/community resources outside of [facility], clarification of legal situation Risk Factors Assessment : Yes /single/: Yes Higher / Fall in social status: Yes Access to guns: No Health problems: No Mental Health Diagnoses: Yes Substance use disorders: Yes Previous attempt: Yes Previous psychiatric stay: Yes Protective Factors Assessment : No Responsible for young children: No Employed: No Supportive family: Yes (sister is POA) Data Vital Signs Last 24 Hrs: Date Time Temp Pulse Resp B/P (MAP) Pulse Ox O2 Delivery O2 Flow Rate FiO2 04/25/17 07:56 37.0 80 16 105/64 90 118/78 Meds Administered Last 24 Hrs: Meds Administered (Past 24Hrs) Medications (Trade) Dose Ordered Sig/[place] Route Start Time Stop Time Status Last Admin Dose Admin Haloperidol (Haldol Tab) 5 mg QAM PO 04/25/17 09:00 05/16/17 22:29 04/25/17 09:10 5 MG Paliperidone (Invega) 3 mg HS PO 04/24/17 22:00 05/19/17 21:59 04/24/17 21:17 3 MG Haloperidol (Haldol Tab) 10 mg HS PO 04/24/17 22:00 05/24/17 21:59 04/24/17 21:19 10 MG Problem Qualifiers (1) Schizoaffective disorder: Schizoaffective disorder type: bipolar Qualified Codes: F25.0 - Schizoaffective disorder, bipolar type
[2017-04-25] MEDS: BOOST BREEZE NUTRITION DRINK 1 BOX PO SCH ×3 (11:49→18:39)
[2017-04-25] MEDS ORDERED: NURSING VERBAL MED ORDER ONE (12:15)
[2017-04-25] MEDS: COUGH DROP (SUGAR FREE) LOZ 24 LOZ/1 BOX LOZ PRN ×2 (12:38→16:46)
[2017-04-25] MEDS: QUETIAPINE FUMARATE 100 MG TAB PO PRN (14:29)
[2017-04-25] MEDS: IBUPROFEN 600 MG TAB PO PRN (16:45)
[2017-04-25] MEDS: ALUMINUM/MAGNESIUM SUSP 30 ML UDC PO PRN (21:07)
[2017-04-25] MEDS: PALIPERIDONE 3 MG TABCR PO SCH (21:08)
[2017-04-25] MEDS: QUETIAPINE FUMARATE 100 MG TAB PO SCH (21:09)
[2017-04-26 07:01] VITALS: BP_SYST 124; BP_SYST 125; BP_DIAS 78; BP_DIAS 80; PULSE 90; PULSE 94; TEMP 36.8
[2017-04-26] MEDS: [UNRECOGNIZED DRUG - OTHER] SCH ×3 (08:00→16:00)
[2017-04-26] MEDS: BOOST BREEZE NUTRITION DRINK 1 BOX PO SCH ×3 (08:01→17:29)
[2017-04-26] MEDS: LEVOTHYROXINE 100 MCG TAB PO SCH (08:01)
[2017-04-26] MEDS: LACTOBACILLUS ACIDOPHILUS (FLORANEX) TAB PO SCH ×2 (08:01→21:06)
[2017-04-26] MEDS: DOCUSATE SODIUM 100 MG CAP PO SCH ×2 (08:01→21:06)
[2017-04-26] MEDS: RANITIDINE HCL 150 MG TAB PO SCH ×2 (08:02→21:08)
[2017-04-26] MEDS: PSYLLIUM 58.6% PWD PACK S\\F PO SCH (08:02)
[2017-04-26] MEDS: CHOLECALCIFEROL 1000 INTER.UNIT TAB PO SCH (08:03)
[2017-04-26] MEDS: HALOPERIDOL 5 MG TAB PO SCH ×2 (08:07→21:07)
[2017-04-26] MEDS: hydrOXYzine HCL 25 MG TAB PO PRN ×2 (08:58→15:06)
[2017-04-26] MEDS: FLUTICASONE PROPIONATE NA SPR 16 GM BTL NAE PRN (10:57)
[2017-04-26] MEDS: QUETIAPINE FUMARATE 100 MG TAB PO PRN ×2 (11:09→17:51)
--- NOTE | 2017-04-26 12:21 | Psychiatric Progress Notes ---
Progress Note Date of Service Apr 26, 2017. Interval History Lorna Piedra is a 61-year-old female admitted on Apr 16, 2017 at 22:19 who currently lives in [place] alone. Lorna Piedra was admitted on a 302 involuntary commitment. Patient is admitted from the ED where she required multiple chemical and physical restraints for agitation. The patient was brought to the ED by the police and there is an active warrant for her arrest on multiple counts of terroristic threats. The police are to be notified prior to discharge. Chief Complaint "Lower Seroquel.". Subjective Patient was seen & assessed interval progress reviewed with Treatment Team. The patient comes to the meeting with a note to remind her that she wants to ask to have her Seroquel reduced. This is because she feels she has been having "bizarre dreams" that are disturbing her sleep. Despite staff reporting that she got 7.5 hours of sleep last night, the patient says that she was up and down all night. She says that her thoughts are going "90 miles per hour" and remains somewhat labile. She continues to refuse the long-acting injectable form of in [place] think she has had it before when in [place] and didn 't like it. We discussed the need to have enough medications to slow down her mirna and she then relents and agrees to continue to take her medications. Staff report that she continues to be when necessary med seeking but is more willing to hear them say that she doesn't need things like her inhaler as frequently as she thinks she does. She says she has "a lot" of side effects to her medicines but does not want to take the time today to talk about them. She denies suicidal or homicidal thinking. She denies auditory or visual hallucinations. Review of Systems Constitutional: No fever, No chills, No sweats, No weight loss, No weakness, No fatigue, No problem reported ENT: No hearing loss, No unusual epistaxis, No nasal symptoms, No sore throat, No tinnitus, No dental problems, No trouble swallowing, No problem reported Respiratory: No cough, No sputum, No wheezing, No shortness of breath, No dyspnea on exertion, No dyspnea at rest, No hemoptysis, No problem reported Cardiovascular: No chest pain, No orthopnea, No PND, No edema, No claudication , No palpitations, No problem reported Abdomen: No pain, No nausea, No vomiting, No diarrhea, No constipation, No GI bleeding, No problem reported Musculoskeletal: No joint pain, No muscle pain, No swelling, No calf pain, No problem reported Neurologic: No memory loss, No paralysis, No weakness, No numbness/tingling, No vertigo, No balance problems, No problem reported Psychiatric: + anxiety, + problem reported (racing thoughts) Integumentary: No rash, No itch, No new/changing skin lesions, No color change , No bleeding, No problem reported Sleep Information Total Hours of Sleep: 7.50 Meal Information Percent of Breakfast Consumed: 100 Percent of Lunch Consumed: 50 Percent of Dinner Consumed: 95 Mental Status Exam During interview pt is: alert and oriented, cooperative Appearance: appropriately dressed, appropriately groomed Eye contact is: good Motor behavior is: steady gait & station, other (parkinsonian with bradykinetic arms) Speech: is pressured (hyperverbal) Affect: blunted, anxious Mood is: anxious Thought process: circumstantial, tangential, perseveration (on Albuterol) Thought content: cognitive distortions, delusions Suicidal thought are: denied Homicidal thoughts are: denied (terroristic threats prior to admission leading to arrest warrant ) Hallucinations: denies auditory, denies visual Cognition: language grossly intact, other (memory and attention impaired) Intelligence estimated to be: average Insight: severely impaired Judgement: severely impaired Medication Trials Remeron, Prozac, Wellbutrin, Celexa, Paxil (?withdrawal seizure), Zoloft Seroquel, Saphris, Zyprexa, Risperdal, Geodon, Abilify (GI), Vraylar 2017 (3 mg) , Haldol cogentin, amantadine buspar, klonopin, Ativan trazodone, neurontin Depakote (helpful), lithium (nonspecific bad reaction) Impression The patient is making slow progress behaviorally although continues to report subjectively that she is having racing thoughts. She frequently wants to bargain about her medications and continues to refuse a long-acting injectable. Currently she is on 3 different antipsychotics including Seroquel, Haldol and Invega and does not accept the fact that moving to a long acting injectable would allow us potentially to use monotherapy. We will request records from [place] where she says she has been on this previously. She is here on a 303. We will continue to gather information toward the need for further inpatient stay. Plan (1) Schizoaffective disorder 04/17--The patient is admitted to [facility] ([facility]) on q 15 min checks (behavioral with suicide precautions) for safety. The patient will participate in group, recreational and milieu therapies and will be offered additional individual and family sessions as clinically appropriate. Case reviewed with outpatient psychiatrist. She is agreeable to restart higher dose of Seroquel and will take 200 mg this hs with additional 100 mg po prn, likely should be retitrated to at least [address] Decker would support retrial of adjunctive depakote and/or conversion to injectable. multiple prns ordered should she become agitated, MNPR given unpredictable behavior 04/18 - increase quetiapine to 300 mg daily at bedtime and continue 100 mg when necessary dose. Continue haloperidol 5 mg and lorazepam 2 mg as needed. Continue benztropine as needed. - Consider Depakote versus more potent antipsychotic with a long acting injectable option. Today she is unwilling/unable to participate in the discussion of medication options. - Fasting lipid profile and glucose performed today and were normal. - Continue medically necessary private room due to psychosis and agitation/ aggression. 04/19 - Start Invega 3 mg. HS, continue Seroquel for now. - Continue to encourage AHUMADA Sustenna - May have akathisia, will have staff attempt a Garcia Akathisia Rating Scale - Artane 5 mg. NOW - Complaining of pain. Will order Ibuprofen 600 mg. QID prn 04/20 - Increase paliperidone to 6mg qhs. Continue quetiapine 300 mg daily at bedtime for now, due to severity of manic symptoms, and prn quetiapine (100 mg every 6 hours when necessary) and haloperidol/lorazepam for agitation. Could consider when necessary chlorpromazine if quetiapine is not beneficial, or clonazepam. - File for 303 commitment, hearing to be held tomorrow. Patient informed. - Coordinate care with Dr. Decker at the patient's request. - Continue MNPR due to severity of mirna, disorganization, and irritability. 04/21 - 303 commitment granted. - Continue Invega 6 mg daily and quetiapine 300 mg daily at bedtime. We will continue to discuss the recommendations for long-acting injectable ( Sustenna), and hopefully she will agree to this. This is indicated due to her noncompliance with oral medications, severity of symptoms, and we'll also ensure that she is medicated while in detention. - vehicle delivery worker to contact forensic case management director, Mary Shah, so that she can follow the patient while incarcerated. - Continue medically necessary private room due to severity of mirna and erratic, inappropriate behaviors. - The patient may be able to start making plans for a family meeting, possibly with sister or adult sons. 04/22 - Haldol 5mg BID scheduled as patient has found it helpful with restlessness and agitation. - Continue Invega 6mg daily and 300mg quetiapine at bedtime. Unwilling for increase in Invega at this time, but may be more willing tomorrow. - Continue MNPR due to current manic episode and irritability. 04/23 - Will continue medications as above. Would be ideal to eliminate need for 3 separate agents if possible, but patient is currently resistant to certain medication changes. - Continue MNPR due to manic behavior and irritability, as well as terroristic threat charge pending. - Continue to encourage group participation where appropriate. 04/24 - Taper invega to 3mg today and increase haldol from 5mg po bid to 5mg AM and 10mg/hs, continue seroquel 300mg/hs with 100mg q6h prn (taking about one time a day prn) - Continue MNPR due to manic behavior, intrusive and talkative and unable to observe boundaries in bedroom space (e.g. talk to roommate incessantly, intrusive in interpersonal space) and terroristic threat charge pending. - Encourage group where appropriate. 04/25 - Increase quetiapine to 400mg qhs, and tinea haloperidol 5 mg every morning and 10 mg daily at bedtime, and complete taper off paliperidone. - Continue medically necessary private room. Encourage groups when able to control behavior. (2) Benzodiazepine abuse Patient is unable to participate in meaningful discussion around this and ETOH use, unclear if use disorder on the latter and will cover with [facility] protocol. Outpatient provider is clear he will no longer Rx any benzos for this patient. 04/19 - patient continues to demand multiple controlled substances, including stimulants, benzodiazepines, and CBD oil. Would not recommend she be prescribed any controlled substances outside of the hospital due to the high risk of abuse/misuse/exacerbation of symptoms. - No signs of alcohol or benzodiazepine withdrawal, so we'll discontinue AWSS protocol. (3) Hypothyroidism TSH >5 on admission, repeat panel. 04/18 - repeat TSH elevated at 6.8, but free T4 normal at 1.17. (4) Legal intervention active arrest warrant for terroristic threats 04/18 - patient signed release for police, social services manager contacted them and they confirmed that they will be picking her up at discharge. 04/21 - social services manager to contact Mary Shah, forensic case management director, so that she can follow with the patient while in detention. Discharge / Aftercare Planning Primary Care Physician: Name: Chanel Mujica PA Psychiatrist: Name: Dr Decker, [employer] Therapist: Name: None Shop Router: Name: Justin OrtizBenbria Visit Code E&M Code: 29135 Inventory Assets Strengths: intelligent, has outpatient psychiatrist, willing to take PO meds at this point Needs: therapist/community resources outside of [facility], clarification of legal situation Risk Factors Assessment : Yes /single/: Yes Higher / Fall in social status: Yes Access to guns: No Health problems: No Mental Health Diagnoses: Yes Substance use disorders: Yes Previous attempt: Yes Previous psychiatric stay: Yes Protective Factors Assessment : No Responsible for young children: No Employed: No Supportive family: Yes (sister is POA) Data Vital Signs Last 24 Hrs: Date Time Temp Pulse Resp B/P (MAP) Pulse Ox O2 Delivery O2 Flow Rate FiO2 04/26/17 07:01 36.8 90 16 124/78 94 125/80 Meds Administered Last 24 Hrs: Meds Administered (Past 24Hrs) Medications (Trade) Dose Ordered Sig/[place] Route Start Time Stop Time Status Last Admin Dose Admin Haloperidol (Haldol Tab) 5 mg QAM PO 04/25/17 09:00 05/16/17 22:29 04/26/17 08:07 5 MG Paliperidone (Invega) 3 mg HS PO 04/24/17 22:00 04/27/17 21:59 04/25/17 21:08 3 MG Haloperidol (Haldol Tab) 10 mg HS PO 04/24/17 22:00 05/24/17 21:59 04/25/17 21:07 10 MG Quetiapine Fumarate (seroQUEL TAB) 400 mg HS PO 04/25/17 22:00 05/17/17 21:59 04/25/17 21:09 400 MG Menthol ([place]) 1 [place] Q2H PRN CHICO 04/25/17 12:30 05/25/17 12:29 04/25/17 16:46 1 CHICO Lab Results Last 24 Hrs: 04/16/17 16:54 Red Blood Count 3.79, Mean Corpuscular Volume 88.1, Mean Corpuscular Hemoglobin 30.1, Mean Corpuscular Hemoglobin Concent 34.1, Mean Platelet Volume 8.6, Neutrophils (%) (Auto) 82.3, Lymphocytes (%) (Auto) 6.9, Monocytes (%) (Auto) 8.9, Eosinophils (%) (Auto) 1.5, Basophils (%) (Auto) 0.2, Neutrophils # (Auto) 10.44, Lymphocytes # (Auto) 0.88, Monocytes # (Auto) 1.13, Eosinophils # (Auto) 0.19, Basophils # (Auto) 0.03 04/16/17 16:54 Test 04/16/17 16:54 04/16/17 17:00 04/16/17 17:16 04/16/17 21:10 White Blood Count 12.70 K/uL (4.8-10.8) Red Blood Count 3.79 M/uL (4.2-5.4) Hemoglobin 11.4 g/dL (12.0-16.0) Hematocrit 33.4 % (37-47) Mean Corpuscular Volume 88.1 fL (80-100) Mean Corpuscular Hemoglobin 30.1 pg (25-34) Mean Corpuscular Hemoglobin Concent 34.1 g/dl (32-36) Platelet Count 255 K/uL (130-400) Mean Platelet Volume 8.6 fL (7.4-10.4) Neutrophils (%) (Auto) 82.3 % Lymphocytes (%) (Auto) 6.9 % Monocytes (%) (Auto) 8.9 % Eosinophils (%) (Auto) 1.5 % Basophils (%) (Auto) 0.2 % Neutrophils # (Auto) 10.44 K/uL (1.4-6.5) Lymphocytes # (Auto) 0.88 K/uL (1.2-3.4) Monocytes # (Auto) 1.13 K/uL (0.11-0.59) Eosinophils # (Auto) 0.19 K/uL (0-0.5) Basophils # (Auto) 0.03 K/uL (0-0.2) RDW Standard Deviation 42.1 fL (36.4-46.3) RDW Coefficient of Variation 13.1 % (11.5-14.5) Immature Granulocyte % (Auto) 0.2 % Immature Granulocyte # (Auto) 0.03 K/uL (0.00-0.02) Prothrombin Time 10.1 SECONDS (9.0-12.0) Prothromb Time International Ratio 1.0 (0.9-1.1) Activated Partial Thromboplast Time 25.2 SECONDS (21.0-31.0) Partial Thromboplastin Ratio 1.0 Anion Gap 9.0 mmol/L (3-11) Est Creatinine Clear Calc Drug Dose 84.3 ml/min Estimated GFR () 113.1 Estimated GFR (Non- 97.5 BUN/Creatinine Ratio 13.4 (10-20) Calcium Level 8.8 mg/dl (8.5-10.1) Total Bilirubin 0.5 mg/dl (0.2-1) Direct Bilirubin 0.1 mg/dl (0-0.2) Aspartate Amino Transf (AST/SGOT) 23 U/L (15-37) Alanine Aminotransferase (ALT/SGPT) 24 U/L (12-78) Alkaline Phosphatase 105 U/L (45-117) Total Protein 6.9 gm/dl (6.4-8.2) Albumin 3.8 gm/dl (3.4-5.0) Lipase 164 U/L (73-393) Salicylates Level 2.6 mg/dl (2.8-20) Acetaminophen Level < 2 ug/ml (10-30) Ethyl Alcohol mg/dL < 3.0 mg/dl (0-3) Urine Color YELLOW Urine Appearance CLEAR (CLEAR) Urine pH 7.0 (4.5-7.5) Urine Specific [place] 1.009 (1.000-1.030) Urine Protein NEG (NEG) Urine Glucose (UA) NEG (NEG) Urine Ketones NEG (NEG) Urine Occult Blood TRACE (NEG) Urine Nitrite NEG (NEG) Urine Bilirubin NEG (NEG) Urine Urobilinogen NEG (NEG) Urine Leukocyte Esterase TRACE (NEG) Urine WBC (Auto) 1-5 /hpf (0-5) Urine RBC (Auto) 0-4 /hpf (0-4) Urine Hyaline Casts (Auto) 0 /lpf (0-5) Urine Epithelial Cells (Auto) 10-20 /lpf (0-5) Urine Bacteria (Auto) NEG (NEG) Urine Opiates Screen NEG (NEG) Urine Methadone, Qualitative NEG (NEG) Urine Barbiturates NEG (NEG) Urine Phencyclidine (PCP) Level NEG (NEG) Ur Amphetamine/Methamphetamine NEG (NEG) MDMA (Ecstasy) Screen NEG (NEG) Urine Benzodiazepines Screen NEG (NEG) Urine Cocaine Metabolite NEG (NEG) Urine Marijuana (THC) NEG (NEG) Bedside Glucose 109 mg/dl (70-90) Total Creatine Kinase 521 U/L (26-192) Test 04/18/17 07:13 Fasting Glucose 87 mg/dl (70-99) Triglycerides Level 67 mg/dl (0-150) Cholesterol Level 161 mg/dl (0-200) HDL Cholesterol 63 mg/dl LDL Cholesterol, Calculated 85 mg/dl VLDL Cholesterol, Calculated 13 mg/dl Cholesterol/HDL Ratio 2.6 Thyroid Stimulating Hormone (TSH) 6.800 uIu/ml (0.300-4.500) Free Thyroxine 1.17 ng/dl (0.80-1.60) Problem Qualifiers (1) Schizoaffective disorder: Schizoaffective disorder type: bipolar Qualified Codes: F25.0 - Schizoaffective disorder, bipolar type
[2017-04-26] MEDS: BENZTROPINE MESYLATE 1 MG TAB PO PRN (12:34)
[2017-04-26] MEDS: ALUMINUM/MAGNESIUM SUSP 30 ML UDC PO PRN (20:28)
[2017-04-26] MEDS: PALIPERIDONE 3 MG TABCR PO SCH (21:07)
[2017-04-26] MEDS: QUETIAPINE FUMARATE 100 MG TAB PO SCH (21:08)
[2017-04-27 07:00] VITALS: BP_SYST 106; BP_SYST 109; BP_DIAS 74; BP_DIAS 75; PULSE 86; PULSE 91; TEMP 36.8
[2017-04-27] MEDS: [UNRECOGNIZED DRUG - OTHER] SCH ×3 (08:00→16:00)
[2017-04-27] MEDS: LEVOTHYROXINE 100 MCG TAB PO SCH (08:19)
[2017-04-27] MEDS: DOCUSATE SODIUM 100 MG CAP PO SCH ×2 (08:19→21:01)
[2017-04-27] MEDS: LACTOBACILLUS ACIDOPHILUS (FLORANEX) TAB PO SCH ×2 (08:19→21:01)
[2017-04-27] MEDS: PSYLLIUM 58.6% PWD PACK S\\F PO SCH (08:20)
[2017-04-27] MEDS: RANITIDINE HCL 150 MG TAB PO SCH ×2 (08:20→21:02)
[2017-04-27] MEDS: CHOLECALCIFEROL 1000 INTER.UNIT TAB PO SCH (08:20)
[2017-04-27] MEDS: BOOST BREEZE NUTRITION DRINK 1 BOX PO SCH ×3 (08:22→18:25)
[2017-04-27] MEDS: HALOPERIDOL 5 MG TAB PO SCH ×2 (08:22→21:01)
[2017-04-27] MEDS: hydrOXYzine HCL 25 MG TAB PO PRN ×3 (09:40→22:43)
[2017-04-27] MEDS: IBUPROFEN 600 MG TAB PO PRN (09:41)
[2017-04-27] MEDS: BENZTROPINE MESYLATE 1 MG TAB PO PRN (10:25)
--- NOTE | 2017-04-27 11:52 | Psychiatric Progress Notes ---
Progress Note Date of Service Apr 27, 2017. Interval History Lorna Piedra is a 61-year-old female admitted on Apr 16, 2017 at 22:19 who currently lives in [place] alone. Lorna Piedra was admitted on a 302 involuntary commitment. Patient is admitted from the ED where she required multiple chemical and physical restraints for agitation. The patient was brought to the ED by the police and there is an active warrant for her arrest on multiple counts of terroristic threats. The police are to be notified prior to discharge. Chief Complaint "I can't sit on those stairs". Subjective Patient was seen & assessed interval progress reviewed with Treatment Team. Staff report the patient continues to be easily distracted, frequently approaches staff with requests, and was unable to tolerate groups last evening. She requested and received multiple prn medications, including quetiapine, benztropine, hydroxyzine, and Flonase. Her sleep continues to improve, and she got 7 hours last night. Today, she states that she knows she is intrusive with the staff with her frequent requests, but struggles to control her behavior, stating "I have so many needs." She refuses to sit on the chairs on the unit, putting a pillow on top of them instead, stating that she can't stand the fabric. She is wearing earplugs, stating that she was trying to nap, and then complaining that she is not sleeping well at night and needs more sleep medication. She says she wants her Seroquel stopped and trazodone started for sleep, but explained that that Seroquel is also being used for mood stabilization and the trazodone would not be a good replacement for that. She complains of poor sleep, stating that she had intense dreams, woke up sweating and was sleepwalking, and now feels "exhausted, confused, irritable, weak." She thinks Haldol is helping, and is resistant to the suggestion of consolidating to one antipsychotic. She denies suicidal thoughts, homicidal thoughts, and hallucinations. She is aware that police will be picking her up at discharge, but then says her goal of treatment is to "not needing to go to penitentiary, I just want house arrest." She feels better able to control her behavior in groups and not disrupt others. Her sister was contacted by the social scientist to help determine how close the patient is to baseline, and notes that Lorna has not been baseline for at least the past 7-8 months. She thinks that the patient's instability started after her suicide attempt in February 2013 where she overdosed and went into respiratory failure, was hospitalized and then had to go to a skilled nursing. Sleep Information Total Hours of Sleep: 7.00 Meal Information Percent of Breakfast Consumed: 75 Percent of Lunch Consumed: 50 Percent of Dinner Consumed: 95 Mental Status Exam During interview pt is: alert and oriented, cooperative Appearance: appropriately dressed, appropriately groomed Eye contact is: good Motor behavior is: steady gait & station, no abnormal motor movements Speech: other (talkative, but not as pressured or rapid) Affect: irritable (mildly), anxious Mood is: other ("exhausted, confused, irritable, weak") Thought process: circumstantial Thought content: cognitive distortions Suicidal thought are: denied Homicidal thoughts are: denied Hallucinations: denies auditory, denies visual Cognition: language grossly intact, other (memory and attention impaired) Intelligence estimated to be: average Insight: impaired Judgement: impaired Medication Trials Remeron, Prozac, Wellbutrin, Celexa, Paxil (?withdrawal seizure), Zoloft Seroquel, Saphris, Zyprexa, Risperdal, Geodon, Abilify (GI), Vraylar 2017 (3 mg) , Haldol cogentin, amantadine buspar, klonopin, Ativan trazodone, neurontin Depakote (helpful), lithium (nonspecific bad reaction) Impression The patient is making slow progress with multiple medication adjustments. She frequently wants to bargain about her medications and continues to refuse a long -acting injectable. Currently she is on 3 different antipsychotics including Seroquel, Haldol and Invega and does not accept the fact that moving to a long acting injectable would allow us potentially to use monotherapy. We will request records from [place] where she says she has been on this previously. She is here on a 303. We will continue to gather information toward the need for further inpatient stay. Plan (1) Schizoaffective disorder 04/17--The patient is admitted to [facility]) on q 15 min checks (behavioral with suicide precautions) for safety. The patient will participate in group, recreational and milieu therapies and will be offered additional individual and family sessions as clinically appropriate. Case reviewed with outpatient psychiatrist. She is agreeable to restart higher dose of Seroquel and will take 200 mg this hs with additional 100 mg po prn, likely should be retitrated to at least [address] Decker would support retrial of adjunctive depakote and/or conversion to injectable. multiple prns ordered should she become agitated, MNPR given unpredictable behavior 04/18 - increase quetiapine to 300 mg daily at bedtime and continue 100 mg when necessary dose. Continue haloperidol 5 mg and lorazepam 2 mg as needed. Continue benztropine as needed. - Consider Depakote versus more potent antipsychotic with a long acting injectable option. Today she is unwilling/unable to participate in the discussion of medication options. - Fasting lipid profile and glucose performed today and were normal. - Continue medically necessary private room due to psychosis and agitation/ aggression. 04/19 - Start Invega 3 mg. HS, continue Seroquel for now. - Continue to encourage AHUMADA Sustenna - May have akathisia, will have staff attempt a Garcia Akathisia Rating Scale - Artane 5 mg. NOW - Complaining of pain. Will order Ibuprofen 600 mg. QID prn 04/20 - Increase paliperidone to 6mg qhs. Continue quetiapine 300 mg daily at bedtime for now, due to severity of manic symptoms, and prn quetiapine (100 mg every 6 hours when necessary) and haloperidol/lorazepam for agitation. Could consider when necessary chlorpromazine if quetiapine is not beneficial, or clonazepam. - File for 303 commitment, hearing to be held tomorrow. Patient informed. - Coordinate care with Dr. Decker at the patient's request. - Continue MNPR due to severity of mirna, disorganization, and irritability. 04/21 - 303 commitment granted. - Continue Invega 6 mg daily and quetiapine 300 mg daily at bedtime. We will continue to discuss the recommendations for long-acting injectable ( Sustenna), and hopefully she will agree to this. This is indicated due to her noncompliance with oral medications, severity of symptoms, and we'll also ensure that she is medicated while in penitentiary. - hospital food service worker to contact forensic business case analyst, Mary Shah, so that she can follow the patient while incarcerated. - Continue medically necessary private room due to severity of mirna and erratic, inappropriate behaviors. - The patient may be able to start making plans for a family meeting, possibly with sister or adult sons. 04/22 - Haldol 5mg BID scheduled as patient has found it helpful with restlessness and agitation. - Continue Invega 6mg daily and 300mg quetiapine at bedtime. Unwilling for increase in Invega at this time, but may be more willing tomorrow. - Continue MNPR due to current manic episode and irritability. 04/23 - Will continue medications as above. Would be ideal to eliminate need for 3 separate agents if possible, but patient is currently resistant to certain medication changes. - Continue MNPR due to manic behavior and irritability, as well as terroristic threat charge pending. - Continue to encourage group participation where appropriate. 04/24 - Taper invega to 3mg today and increase haldol from 5mg po bid to 5mg AM and 10mg/hs, continue seroquel 300mg/hs with 100mg q6h prn (taking about one time a day prn) - Continue MNPR due to manic behavior, intrusive and talkative and unable to observe boundaries in bedroom space (e.g. talk to roommate incessantly, intrusive in interpersonal space) and terroristic threat charge pending. - Encourage group where appropriate. 04/25 - Increase quetiapine to 400mg qhs, and haloperidol 5 mg every morning and 10 mg daily at bedtime, and complete taper off paliperidone. - Continue medically necessary private room. Encourage groups when able to control behavior. 04/27 - Continue quetiapine and haloperidol, as the patient is refusing to increase the dose of one and consolidate to one antipsychotic. Discontinue paliperidone. It may actually be beneficial for her to be on 2 antipsychotics, as she is already parkinsonian on the haloperidol, and her manic symptoms similar not well controlled. She is refusing higher dose of quetiapine. - The patient's sister indicates that she has not been at baseline for many months, and it will likely be a long slow process for her to recover completely. She is still distractible and requires frequent redirection, and we will continue to try to stabilize her symptoms as much a possible in preparation for transfer to penitentiary. (2) Benzodiazepine abuse Patient is unable to participate in meaningful discussion around this and ETOH use, unclear if use disorder on the latter and will cover with AWSS protocol. Outpatient provider is clear he will no longer Rx any benzos for this patient. 04/19 - patient continues to demand multiple controlled substances, including stimulants, benzodiazepines, and CBD oil. Would not recommend she be prescribed any controlled substances outside of the hospital due to the high risk of abuse/misuse/exacerbation of symptoms. - No signs of alcohol or benzodiazepine withdrawal, so we'll discontinue AWSS protocol. 04/27 - Brief intervention was offered and accepted Intervention was greater than 5 min in length. Brief interventions include: 1. Assess Readiness to Quit, 2. Advise: Help Patient to Reduce or Abstain from Alcohol, 3. Agree: Set Specific, Feasible Goals, 4. Assist: Anticipate barriers, Problem-Solving Solutions. Social work to 5. Arrange: Referrals to appropriate treatment. Summary of intervention: The patient is in precontemplation stage with regards to transtheoretical model of change. The patient is advised to decrease alcohol consumption due to depressant effects and risk of interactions with prescription medications. The patient agreed to follow-up with her outpatient providers, and will be provided with recovery materials to continue to education self on how to cope with their condition without drinking/using cannabis or other controlled substances. (3) Hypothyroidism TSH >5 on admission, repeat panel. 04/18 - repeat TSH elevated at 6.8, but free T4 normal at 1.17. (4) Legal intervention active arrest warrant for terroristic threats 04/18 - patient signed release for police, social scientist contacted them and they confirmed that they will be picking her up at discharge. 04/21 - social scientist to contact Mary Shah, forensic business case analyst, so that she can follow with the patient while in penitentiary. Discharge / Aftercare Planning Primary Care Physician: Name: Chanel Mujica PA Psychiatrist: Name: Dr Decker, [facility] Therapist: Name: None Beveling And Edging Machine Operator: Name: Justin Brice [place] Communication Visit Code E&M Code: 61681 Inventory Assets Strengths: intelligent, has outpatient psychiatrist, willing to take PO meds at this point Needs: therapist/community resources outside of [facility], clarification of legal situation Risk Factors Assessment : Yes /single/: Yes Higher / Fall in social status: Yes Access to guns: No Health problems: No Mental Health Diagnoses: Yes Substance use disorders: Yes Previous attempt: Yes Previous psychiatric stay: Yes Protective Factors Assessment : No Responsible for young children: No Employed: No Supportive family: Yes (sister is POA) Data Vital Signs Last 24 Hrs: Date Time Temp Pulse Resp B/P (MAP) Pulse Ox O2 Delivery O2 Flow Rate FiO2 04/27/17 07:00 36.8 86 16 106/74 91 109/75 Meds Administered Last 24 Hrs: Meds Administered (Past 24Hrs) Medications (Trade) Dose Ordered Sig/[place] Route Start Time Stop Time Status Last Admin Dose Admin Quetiapine Fumarate (seroQUEL TAB) 400 mg HS PO 04/25/17 22:00 05/17/17 21:59 04/26/17 21:08 400 MG Menthol (Nice Ty) 1 ty Q2H PRN TY 04/25/17 12:30 05/25/17 12:29 04/25/17 16:46 1 TY Problem Qualifiers (1) Schizoaffective disorder: Schizoaffective disorder type: bipolar Qualified Codes: F25.0 - Schizoaffective disorder, bipolar type
[2017-04-27] MEDS: FLUTICASONE PROPIONATE NA SPR 16 GM BTL NAE PRN ×2 (13:33→22:33)
[2017-04-27] MEDS: COUGH DROP (SUGAR FREE) LOZ 24 LOZ/1 BOX LOZ PRN (17:04)
[2017-04-27] MEDS: QUETIAPINE FUMARATE 100 MG TAB PO SCH (21:02)
[2017-04-28 07:01] VITALS: BP_SYST 111; BP_SYST 127; BP_DIAS 71; BP_DIAS 80; PULSE 77; PULSE 92; TEMP 37
[2017-04-28] MEDS: LEVOTHYROXINE 100 MCG TAB PO SCH (07:45)
[2017-04-28] MEDS: [UNRECOGNIZED DRUG - OTHER] SCH ×3 (08:00→16:00)
[2017-04-28] MEDS: BOOST BREEZE NUTRITION DRINK 1 BOX PO SCH ×3 (08:32→17:29)
[2017-04-28] MEDS: PSYLLIUM 58.6% PWD PACK S\\F PO SCH (08:33)
[2017-04-28] MEDS: HALOPERIDOL 5 MG TAB PO SCH ×2 (08:33→21:02)
[2017-04-28] MEDS: CHOLECALCIFEROL 1000 INTER.UNIT TAB PO SCH (08:34)
[2017-04-28] MEDS: RANITIDINE HCL 150 MG TAB PO SCH ×2 (08:35→21:02)
[2017-04-28] MEDS: DOCUSATE SODIUM 100 MG CAP PO SCH ×2 (08:35→21:02)
[2017-04-28] MEDS: LACTOBACILLUS ACIDOPHILUS (FLORANEX) TAB PO SCH ×2 (08:35→21:02)
[2017-04-28] MEDS: IBUPROFEN 600 MG TAB PO PRN ×2 (08:39→21:02)
[2017-04-28] MEDS: ALUMINUM/MAGNESIUM SUSP 30 ML UDC PO PRN (08:41)
[2017-04-28] MEDS: hydrOXYzine HCL 25 MG TAB PO PRN ×2 (09:11→16:17)
[2017-04-28] MEDS: FLUTICASONE PROPIONATE NA SPR 16 GM BTL NAE PRN (10:22)
[2017-04-28] MEDS: BENZTROPINE MESYLATE 1 MG TAB PO PRN ×2 (10:24→18:15)
--- NOTE | 2017-04-28 12:00 | Psychiatric Progress Notes ---
Progress Note Date of Service Apr 28, 2017. Interval History Lorna Piedra is a 61-year-old female admitted on Apr 16, 2017 at 22:19 who currently lives in [place] alone. Lorna Piedra was admitted on a 302 involuntary commitment. Patient is admitted from the ED where she required multiple chemical and physical restraints for agitation. The patient was brought to the ED by the police and there is an active warrant for her arrest on multiple counts of terroristic threats. The police are to be notified prior to discharge. Chief Complaint "I'm 100 percent, truly on top of my game". Subjective Patient was seen & assessed interval progress reviewed with Nursing. Staff reported that the patient's regulatory attorney is planning to pick the patient up tomorrow at discharge and transport her to her hearing. Pt has had increased participation in group therapy and other group-based activities, but requires occasional re-direction as patient's intrusive behavior continues to be a problem at times. Pt was seen today to assess progress since admission. Pt states she has noticed improvements since initially presenting, stating "everything about me is improved". Pt is aware of the transportation plans and has been informed that her regulatory attorney is planning to escort her to her hearing. The topic of the outcome of her hearing was explored today and patient states, "It's not important, I hired a very good regulatory attorney". Pt states her regulatory attorney is planning to take her to her home after the hearing and ensure that it is safe and that potential weapons are removed. Pt continues to make medication recommendations , stating that the Invega is affecting her short-term memory. Pt was informed that the Invega had been discontinued, to which she replied, "well that explains why I slept so well last night". Pt had mentioned receiving Trazodone rather than Invega at bedtime as she feels it is a better medication. We discussed that further changes could be explored with her outpatient provider. Pt is not thrilled about getting a roommate, but we discussed that it could be beneficial in showing to herself and others that she could tolerate the change and control her mood in that setting. Pt was agreeable to this and denied safety concerns with being taken off MNPR. Pt denies complaints today and is anticipating discharge tomorrow. Review of Systems Psych: denies symptoms other than stated above Constitutional: denied Cardiovascular: denied GI: denied Neurologic: denied Remainder of 10 body systems also reviewed and denied other than noted above. Sleep Information Total Hours of Sleep: 6.50 Meal Information Percent of Breakfast Consumed: 100 Percent of Lunch Consumed: 75 Percent of Dinner Consumed: 50 Mental Status Exam During interview pt is: alert and oriented, cooperative Appearance: appropriately dressed, appropriately groomed Eye contact is: good Motor behavior is: steady gait & station, no abnormal motor movements Speech: other (unpressured, hyperverbal speech) Affect: euthymic Mood is: other ("100 percent") Thought process: circumstantial (regularly changing topics) Thought content: cognitive distortions Suicidal thought are: denied Homicidal thoughts are: denied Hallucinations: denies auditory, denies visual Cognition: language grossly intact, other (reports difficulty with short-term memory) Intelligence estimated to be: average Insight: impaired Judgement: impaired Medication Trials Remeron, Prozac, Wellbutrin, Celexa, Paxil (?withdrawal seizure), Zoloft Seroquel, Saphris, Zyprexa, Risperdal, Geodon, Abilify (GI), Vraylar 2017 (3 mg) , Haldol cogentin, amantadine buspar, klonopin, Ativan trazodone, neurontin Depakote (helpful), lithium (nonspecific bad reaction) Impression Pt reports improvement since admission. She continues to make medication recommendations based on past experiences and continues to refuse AHUMADA. Pt's Invega has been discontinued and she is pleased with this. She states her dose of Seroquel is "too high" and feels that Haldol is a "good medication for me". Pt is anticipating discharge tomorrow to attend her court hearing with her regulatory attorney. She is willing for medication adjustments to continue on an outpatient basis. Plan (1) Schizoaffective disorder 04/17--The patient is admitted to [facility] ([facility] mental [facility]) on q 15 min checks (behavioral with suicide precautions) for safety. The patient will participate in group, recreational and milieu therapies and will be offered additional individual and family sessions as clinically appropriate. Case reviewed with outpatient psychiatrist. She is agreeable to restart higher dose of Seroquel and will take 200 mg this hs with additional 100 mg po prn, likely should be retitrated to at least [address] Decker would support retrial of adjunctive depakote and/or conversion to injectable. multiple prns ordered should she become agitated, MNPR given unpredictable behavior 04/18 - increase quetiapine to 300 mg daily at bedtime and continue 100 mg when necessary dose. Continue haloperidol 5 mg and lorazepam 2 mg as needed. Continue benztropine as needed. - Consider Depakote versus more potent antipsychotic with a long acting injectable option. Today she is unwilling/unable to participate in the discussion of medication options. - Fasting lipid profile and glucose performed today and were normal. - Continue medically necessary private room due to psychosis and agitation/ aggression. 04/19 - Start Invega 3 mg. HS, continue Seroquel for now. - Continue to encourage AHUMADA Sustenna - May have akathisia, will have staff attempt a Garcia Akathisia Rating Scale - Artane 5 mg. NOW - Complaining of pain. Will order Ibuprofen 600 mg. QID prn 04/20 - Increase paliperidone to 6mg qhs. Continue quetiapine 300 mg daily at bedtime for now, due to severity of manic symptoms, and prn quetiapine (100 mg every 6 hours when necessary) and haloperidol/lorazepam for agitation. Could consider when necessary chlorpromazine if quetiapine is not beneficial, or clonazepam. - File for 303 commitment, hearing to be held tomorrow. Patient informed. - Coordinate care with Dr. Decker at the patient's request. - Continue MNPR due to severity of mirna, disorganization, and irritability. 04/21 - 303 commitment granted. - Continue Invega 6 mg daily and quetiapine 300 mg daily at bedtime. We will continue to discuss the recommendations for long-acting injectable ( Sustenna), and hopefully she will agree to this. This is indicated due to her noncompliance with oral medications, severity of symptoms, and we'll also ensure that she is medicated while in prison. - clerical warehouse worker to contact [employer], Mary Shah, so that she can follow the patient while incarcerated. - Continue medically necessary private room due to severity of mirna and erratic, inappropriate behaviors. - The patient may be able to start making plans for a family meeting, possibly with sister or adult sons. 04/22 - Haldol 5mg BID scheduled as patient has found it helpful with restlessness and agitation. - Continue Invega 6mg daily and 300mg quetiapine at bedtime. Unwilling for increase in Invega at this time, but may be more willing tomorrow. - Continue MNPR due to current manic episode and irritability. 04/23 - Will continue medications as above. Would be ideal to eliminate need for 3 separate agents if possible, but patient is currently resistant to certain medication changes. - Continue MNPR due to manic behavior and irritability, as well as terroristic threat charge pending. - Continue to encourage group participation where appropriate. 04/24 - Taper invega to 3mg today and increase haldol from 5mg po bid to 5mg AM and 10mg/hs, continue seroquel 300mg/hs with 100mg q6h prn (taking about one time a day prn) - Continue MNPR due to manic behavior, intrusive and talkative and unable to observe boundaries in bedroom space (e.g. talk to roommate incessantly, intrusive in interpersonal space) and terroristic threat charge pending. - Encourage group where appropriate. 04/25 - Increase quetiapine to 400mg qhs, and haloperidol 5 mg every morning and 10 mg daily at bedtime, and complete taper off paliperidone. - Continue medically necessary private room. Encourage groups when able to control behavior. 04/27 - Continue quetiapine and haloperidol, as the patient is refusing to increase the dose of one and consolidate to one antipsychotic. Discontinue paliperidone. It may actually be beneficial for her to be on 2 antipsychotics, as she is already parkinsonian on the haloperidol, and her manic symptoms similar not well controlled. She is refusing higher dose of quetiapine. - The patient's sister indicates that she has not been at baseline for many months, and it will likely be a long slow process for her to recover completely. She is still distractible and requires frequent redirection, and we will continue to try to stabilize her symptoms as much a possible in preparation for transfer to prison. 04/28 - Continue quetiapine and haloperidol as above. Continue to recommend AHUMADA, which patient is not agreeable to at this time. Pt continues to be distractible and requires redirection during encounters. Pt feels she has been improving and denies complaints today. - Pt to be transported to court hearing tomorrow by her regulatory attorney. She states she will be taken home after the hearing. - MNPR discontinued this morning. Pt reports no safety concerns and would benefit from the opportunity to tolerate a roommate and show control of mood and behaviors. - Continue to encourage group participation when appropriate. (2) Benzodiazepine abuse Patient is unable to participate in meaningful discussion around this and ETOH use, unclear if use disorder on the latter and will cover with AWSS protocol. Outpatient provider is clear he will no longer Rx any benzos for this patient. 04/19 - patient continues to demand multiple controlled substances, including stimulants, benzodiazepines, and CBD oil. Would not recommend she be prescribed any controlled substances outside of the hospital due to the high risk of abuse/misuse/exacerbation of symptoms. - No signs of alcohol or benzodiazepine withdrawal, so we'll discontinue AWSS protocol. 04/27 - Brief intervention was offered and accepted Intervention was greater than 5 min in length. Brief interventions include: 1. Assess Readiness to Quit, 2. Advise: Help Patient to Reduce or Abstain from Alcohol, 3. Agree: Set Specific, Feasible Goals, 4. Assist: Anticipate barriers, Problem-Solving Solutions. Social work to 5. Arrange: Referrals to appropriate treatment. Summary of intervention: The patient is in precontemplation stage with regards to transtheoretical model of change. The patient is advised to decrease alcohol consumption due to depressant effects and risk of interactions with prescription medications. The patient agreed to follow-up with her outpatient providers, and will be provided with recovery materials to continue to education self on how to cope with their condition without drinking/using cannabis or other controlled substances. (3) Hypothyroidism TSH >5 on admission, repeat panel. 04/18 - repeat TSH elevated at 6.8, but free T4 normal at 1.17. (4) Legal intervention active arrest warrant for terroristic threats 04/18 - patient signed release for police, social welfare clerk contacted them and they confirmed that they will be picking her up at discharge. 04/21 - social welfare clerk to contact Mary Shah, [employer], so that she can follow with the patient while in prison. 04/28 - Staff and patient report patient will be transported to her court hearing by her regulatory attorney tomorrow at discharge. Discharge / Aftercare Planning Primary Care Physician: Name: Dr. Yuri Carlson Date of Appointment: May 09, 2017 Time of Appointment: 1:15 p.m. Appointment Notes: [address], [place] [id number] Psychiatrist: Name: Dr Decker, [facility] Date of Appointment: May 04, 2017 Time of Appointment: 1:35 p.m. Appointment Notes: [address] [facility], [place] Machine Oiler: Name: Justin Cornell Date of Appointment: May 06, 2017 Time of Appointment: 9:00 a.m. Visit Code E&M Code: 24839 Inventory Assets Strengths: intelligent, has outpatient psychiatrist, willing to take PO meds at this point Needs: therapist/community resources outside of [facility], clarification of legal situation Risk Factors Assessment : Yes /single/: Yes Higher / Fall in social status: Yes Access to guns: No Health problems: No Mental Health Diagnoses: Yes Substance use disorders: Yes Previous attempt: Yes Previous psychiatric stay: Yes Protective Factors Assessment : No Responsible for young children: No Employed: No Supportive family: Yes (sister is POA) Data Vital Signs Last 24 Hrs: Date Time Temp Pulse Resp B/P (MAP) Pulse Ox O2 Delivery O2 Flow Rate FiO2 04/28/17 07:01 37.0 77 16 111/71 92 127/80 Problem Qualifiers (1) Schizoaffective disorder: Schizoaffective disorder type: bipolar Qualified Codes: F25.0 - Schizoaffective disorder, bipolar type
[2017-04-28] MEDS: QUETIAPINE FUMARATE 100 MG TAB PO SCH (21:02)
[2017-04-29 07:02] VITALS: BP 110/72; PULSE 81; PULSE 84; TEMP 36.6
[2017-04-29] MEDS: DOCUSATE SODIUM 100 MG CAP PO SCH ×2 (07:46→21:04)
[2017-04-29] MEDS: LEVOTHYROXINE 100 MCG TAB PO SCH (07:46)
[2017-04-29] MEDS: LACTOBACILLUS ACIDOPHILUS (FLORANEX) TAB PO SCH ×2 (07:46→21:04)
[2017-04-29] MEDS: CHOLECALCIFEROL 1000 INTER.UNIT TAB PO SCH (07:46)
[2017-04-29] MEDS: RANITIDINE HCL 150 MG TAB PO SCH ×2 (07:46→21:03)
[2017-04-29] MEDS: HALOPERIDOL 5 MG TAB PO SCH ×2 (07:49→21:03)
[2017-04-29] MEDS: PSYLLIUM 58.6% PWD PACK S\\F PO SCH ×2 (07:51→09:07)
[2017-04-29] MEDS: BOOST BREEZE NUTRITION DRINK 1 BOX PO SCH ×3 (07:52→17:22)
[2017-04-29] MEDS: [UNRECOGNIZED DRUG - OTHER] SCH ×3 (08:00→15:38)
[2017-04-29] MEDS: FLUTICASONE PROPIONATE NA SPR 16 GM BTL NAE PRN (08:13)
[2017-04-29] MEDS: hydrOXYzine HCL 25 MG TAB PO PRN ×4 (09:06→21:03)
[2017-04-29] MEDS ORDERED: QUET1TAB20 PO (09:52)
[2017-04-29] MEDS ORDERED: HLD5 PO ×2 (09:52)
--- NOTE | 2017-04-29 10:17 | Discharge Instructions ---
Discharge Information Report Includes Report will include the: Discharge Instructions & Summary Admission Admission Date / Time: Apr 16, 2017 at 22:19 Reason for Admission: Mood Disorder Discharge Discharge Diagnosis / Problem: Mood Disorder, Schizoaffective Disorder Condition at Discharge: Fair Discharge Goals Goal(s): Improve function, Increase independence, Therapeutic intervention, Prevent Disease Progression Activity Recommendations Activity Limitations: resume your previous activity . Instructions / Follow-Up Instructions / Follow-Up . SPECIAL CARE INSTRUCTIONS: 1. Follow through with your scheduled aftercare appointments. If unable to keep an appointment, please call to reschedule. 2. Take your medication only as prescribed. Medication should not be changed or stopped without the approval of your doctor. In the event of worsening symptoms or concerns about side effects, contact your doctor immediately. 3. Utilize new healthy coping skills, anger management skills, and stress management skills learned during your hospitalization. Journal feelings and process them with a support person. Identify stressors or situations that may result in relapse, deterioration or inappropriate behaviors and develop a plan to deal with those issues. 4. If your coping skills are ineffective and you are in crisis, contact your outpatient providers for direction. If unable to reach your providers, please call the CAN HELP LINE AT or go to the closest Emergency Room. 5. Avoid alcohol and un-prescribed drugs. 6. You have been provided with the Mental Health Advance Directives Pamphlet for your review. AFTERCARE APPOINTMENTS: * Please call your insurance company prior to your scheduled appointment to confirm your aftercare providers are covered. Take your insurance information to your appointments. . Discharge / Aftercare Planning Primary Care Physician: Name: Dr. Yuri Carlson Date of Appointment: May 09, 2017 Time of Appointment: 1:15 p.m. Appointment Notes: [address], [place] [id number] Psychiatrist: Name: Dr Decker, [facility] Date of Appointment: May 04, 2017 Time of Appointment: 1:35 p.m. Appointment Notes: [address] [facility], [place], [place] Lap Winder: Name: Justin Cornell Date of Appointment: May 06, 2017 Time of Appointment: 9:00 a.m. . Follow-Up Care Plan for Follow-Up Care: Arrangements have been made for followup care with patient's PCP, psychiatrist, and caseworker protective services post discharge. Outpatient care in place prior to admission and timely follow-ups were scheduled during the patient's time on the unit. Current Hospital Diet Patient's current hospital diet: Regular Diet Discharge Diet Recommended Diet: Regular Diet Procedures Procedures Performed: No Pending Studies Pending Studies at Discharge: No Medical Emergencies . Who to Call and When: Medical Emergencies: For questions or emergencies related to your hospital stay, please contact the Inpatient Behavioral Health Unit at [phone]. A billing clinician is on-call 25/10 for the Behavioral Health Unit for emergencies At any time you feel your situation is an emergency, you may also call 911 immediately. . Non-Emergent Contact Non-Emergency issues call your: Primary Care Provider, Psychiatrist, Lap Winder Past History Medical & Surgical History: (1) Hypothyroidism Advance Directives Do You Have an Existing Mental: No Existing Living Will: No Existing Power of Licensed Weigher: Yes The Person Making Decisions: constantinolaron ibanez sister Advance Directives Info Given: To Pt/S.O. Advance Directives Reason: Declines as Mental Health Visit. Discharge Summary Admission HPI Per the Admitting provider: Patient slept through the night and reports little memory of events in ED. She is loud/pressured and not particularly cooperative with interview currently. She reportedly confronted her neighbors for [place] water and then threatened them with a frying lott prior to barricading herself in her home with a >3 ft long machete. She was in a "stand off" with police for 2 hours threatening herself and others and required 4 pt restraints, IV and IM Ketamine, and Haldol and Ativan for agitation. She tells me that she wanted to adopt her neighbors and wanted specific water because tap water is poison. She states that she was chipping ice off of her deck to have suck on snow rather than drinking the water in her house. It doesn't seem that she has been taking her medication, specifically Seroquel as prescribed. Dosing doesn't match Dr. Decker's last clinic note and when I spoke with him directly he stated that patient is no longer taking Vraylar or Ativan. He is aware of her history of benzo OD but since she had been stable for some time on Seroquel (dose up to 500 mg) he had provided a few tabs as a comfort measure. The patient is insistent with me that she have Klonopin and Ativan. She does have insight that "I clearly need Seroquel", recognizing that her current use of 50-100 mg is inadequate to control her mood symptoms. She admitted to staff that she uses MJ regularly and when she can't have an Ativan she takes a shot of Vodka daily. Of note patient was last seen on consult service on 12/17 for Klonopin OD. She has been following at [facility] since summer. Last therapy appt with Dr. Weber in August 2016. Hospital Course (1) Schizoaffective disorder 04/17--The patient is admitted to [facility] ([facility]) on q 15 min checks (behavioral with suicide precautions) for safety. The patient will participate in group, recreational and milieu therapies and will be offered additional individual and family sessions as clinically appropriate. Case reviewed with outpatient psychiatrist. She is agreeable to restart higher dose of Seroquel and will take 200 mg this hs with additional 100 mg po prn, likely should be retitrated to at least [address] Decker would support retrial of adjunctive depakote and/or conversion to injectable. multiple prns ordered should she become agitated, MNPR given unpredictable behavior 04/18 - increase quetiapine to 300 mg daily at bedtime and continue 100 mg when necessary dose. Continue haloperidol 5 mg and lorazepam 2 mg as needed. Continue benztropine as needed. - Consider Depakote versus more potent antipsychotic with a long acting injectable option. Today she is unwilling/unable to participate in the discussion of medication options. - Fasting lipid profile and glucose performed today and were normal. - Continue medically necessary private room due to psychosis and agitation/ aggression. 04/19 - Start Invega 3 mg. HS, continue Seroquel for now. - Continue to encourage AHUMADA Sustenna - May have akathisia, will have staff attempt a Garcia Akathisia Rating Scale - Artane 5 mg. NOW - Complaining of pain. Will order Ibuprofen 600 mg. QID prn 04/20 - Increase paliperidone to 6mg qhs. Continue quetiapine 300 mg daily at bedtime for now, due to severity of manic symptoms, and prn quetiapine (100 mg every 6 hours when necessary) and haloperidol/lorazepam for agitation. Could consider when necessary chlorpromazine if quetiapine is not beneficial, or clonazepam. - File for 303 commitment, hearing to be held tomorrow. Patient informed. - Coordinate care with Dr. Decker at the patient's request. - Continue MNPR due to severity of mirna, disorganization, and irritability. 04/21 - 303 commitment granted. - Continue Invega 6 mg daily and quetiapine 300 mg daily at bedtime. We will continue to discuss the recommendations for long-acting injectable ( Sustenna), and hopefully she will agree to this. This is indicated due to her noncompliance with oral medications, severity of symptoms, and we'll also ensure that she is medicated while in assisted. - track repair worker to contact forensic caseworker protective services, Mary Shah, so that she can follow the patient while incarcerated. - Continue medically necessary private room due to severity of mirna and erratic, inappropriate behaviors. - The patient may be able to start making plans for a family meeting, possibly with sister or adult sons. 04/22 - Haldol 5mg BID scheduled as patient has found it helpful with restlessness and agitation. - Continue Invega 6mg daily and 300mg quetiapine at bedtime. Unwilling for increase in Invega at this time, but may be more willing tomorrow. - Continue MNPR due to current manic episode and irritability. 04/23 - Will continue medications as above. Would be ideal to eliminate need for 3 separate agents if possible, but patient is currently resistant to certain medication changes. - Continue MNPR due to manic behavior and irritability, as well as terroristic threat charge pending. - Continue to encourage group participation where appropriate. 04/24 - Taper invega to 3mg today and increase haldol from 5mg po bid to 5mg AM and 10mg/hs, continue seroquel 300mg/hs with 100mg q6h prn (taking about one time a day prn) - Continue MNPR due to manic behavior, intrusive and talkative and unable to observe boundaries in bedroom space (e.g. talk to roommate incessantly, intrusive in interpersonal space) and terroristic threat charge pending. - Encourage group where appropriate. 04/25 - Increase quetiapine to 400mg qhs, and haloperidol 5 mg every morning and 10 mg daily at bedtime, and complete taper off paliperidone. - Continue medically necessary private room. Encourage groups when able to control behavior. 04/27 - Continue quetiapine and haloperidol, as the patient is refusing to increase the dose of one and consolidate to one antipsychotic. Discontinue paliperidone. It may actually be beneficial for her to be on 2 antipsychotics, as she is already parkinsonian on the haloperidol, and her manic symptoms similar not well controlled. She is refusing higher dose of quetiapine. - The patient's sister indicates that she has not been at baseline for many months, and it will likely be a long slow process for her to recover completely. She is still distractible and requires frequent redirection, and we will continue to try to stabilize her symptoms as much a possible in preparation for transfer to assisted. 04/28 - Continue quetiapine and haloperidol as above. Continue to recommend AHUMADA, which patient is not agreeable to at this time. Pt continues to be distractible and requires redirection during encounters. Pt feels she has been improving and denies complaints today. - Pt to be transported to court hearing tomorrow by her county attorney. She states she will be taken home after the hearing. - MNPR discontinued this morning. Pt reports no safety concerns and would benefit from the opportunity to tolerate a roommate and show control of mood and behaviors. - Continue to encourage group participation when appropriate. (2) Benzodiazepine abuse Patient is unable to participate in meaningful discussion around this and ETOH use, unclear if use disorder on the latter and will cover with AWSS protocol. Outpatient provider is clear he will no longer Rx any benzos for this patient. 04/19 - patient continues to demand multiple controlled substances, including stimulants, benzodiazepines, and CBD oil. Would not recommend she be prescribed any controlled substances outside of the hospital due to the high risk of abuse/misuse/exacerbation of symptoms. - No signs of alcohol or benzodiazepine withdrawal, so we'll discontinue AWSS protocol. 04/27 - Brief intervention was offered and accepted Intervention was greater than 5 min in length. Brief interventions include: 1. Assess Readiness to Quit, 2. Advise: Help Patient to Reduce or Abstain from Alcohol, 3. Agree: Set Specific, Feasible Goals, 4. Assist: Anticipate barriers, Problem-Solving Solutions. Social work to 5. Arrange: Referrals to appropriate treatment. Summary of intervention: The patient is in precontemplation stage with regards to transtheoretical model of change. The patient is advised to decrease alcohol consumption due to depressant effects and risk of interactions with prescription medications. The patient agreed to follow-up with her outpatient providers, and will be provided with recovery materials to continue to education self on how to cope with their condition without drinking/using cannabis or other controlled substances. (3) Hypothyroidism TSH >5 on admission, repeat panel. 04/18 - repeat TSH elevated at 6.8, but free T4 normal at 1.17. (4) Legal intervention active arrest warrant for terroristic threats 04/18 - patient signed release for police, social media community manager contacted them and they confirmed that they will be picking her up at discharge. 04/21 - social media community manager to contact Mary Shah, forensic caseworker protective services, so that she can follow with the patient while in assisted. 04/28 - Staff and patient report patient will be transported to her court hearing by her county attorney tomorrow at discharge. Risk Factors Assessment : Yes /single/: Yes Higher / Fall in social status: Yes Access to guns: No Health problems: No Mental Health Diagnoses: Yes Substance use disorders: Yes Previous attempt: Yes Previous psychiatric stay: Yes Protective Factors Assessment : No Responsible for young children: No Employed: No Supportive family: Yes (sister is POA) Day of Discharge Assessment Hospital Course - Pt was brought to the ED by police after an incident in which the patient received charges for multiple counts of terroristic threats. Pt was [facility] to the [facility] on a 302 involuntary commitment. The patient's case was reviewed with her outpatient psychiatrist and patient was started on a higher dose of Seroquel. After several discussions, pt was adamant that she is not interested in the recommendations to trial Depakote or conversion to a long- acting injectable. Pt had a trial of Invega, and after not being agreeable to Sustenna and unwilling for dose increase, Invega was tapered in favor of scheduled Haldol. At discharge, pt is receiving Haldol 5mg qAM, Seroquel 400mg qHS, and Haldol 10mg qHS. Pt was reported to be parkinsonian on haldol, and is refusing higher doses of Seroquel. Need for 2 antipsychotics is not ideal, but has shown some improvement in controlling patient's manic behaviors. Day of Discharge Assessment - Pt case was discussed with staff during treatment team. Staff reports aftercare in place for both medications and therapy. Current plan is that patient's county attorney will pick her up at discharge and escort her to her court hearing. Uncertain at this time of patient's disposition, but county attorney confirmed that should patient be released, weapons will be removed from her home. Pt was seen and assessed today to discuss readiness for discharge. Pt states, "I'm so excited that I'm crying". Pt reports that "everything" has been better since her admission and she feels that her "brain has been healed". Pt states prior to her admission she was very irritable, and feels that she is more relaxed and able to calm herself down. Pt was questioned on thoughts about going before a modeling analyst at discharge to which she replied, "I'm letting God handle it." Pt is aware of plans for her county attorney to escort her to the courthouse and she feels she is ready for discharge. Pt denies SI, HI, and A/V hallucinations today. The patient presented as alert and cooperative. The patient was casually dressed in scrub pants and slippers and appers to be well groomed. Eye contact was good. Mild restlessness was noted. Speech was normal in rate, rhythm, and volume. Affect was mood congruent. The patients mood appeared euthymic. Thought processes were clear, coherent and goal directed with evidence of loose associations ongoing. Thought content/perception was reality based without delusions. The patient denied suicidal and homicidal ideation. The patient denied hallucinations and did not appear to be responding to internal stimuli. Cognition was grossly intact with orientation to person, place and time. Fund of Knowledge/Intelligence were consistent with level of education. Insight and Judgement remain limited. Laboratory Refer to printed laboratory reports Test 04/16/17 16:54 04/16/17 17:00 04/16/17 17:16 04/16/17 20:09 White Blood Count 12.70 Red Blood Count 3.79 Hemoglobin 11.4 Hematocrit 33.4 Mean Corpuscular Volume 88.1 Mean Corpuscular Hemoglobin 30.1 Mean Corpuscular Hemoglobin Concent 34.1 Platelet Count 255 Mean Platelet Volume 8.6 Neutrophils (%) (Auto) 82.3 Lymphocytes (%) (Auto) 6.9 Monocytes (%) (Auto) 8.9 Eosinophils (%) (Auto) 1.5 Basophils (%) (Auto) 0.2 Neutrophils # (Auto) 10.44 Lymphocytes # (Auto) 0.88 Monocytes # (Auto) 1.13 Eosinophils # (Auto) 0.19 Basophils # (Auto) 0.03 RDW Standard Deviation 42.1 RDW Coefficient of Variation 13.1 Immature Granulocyte % (Auto) 0.2 Immature Granulocyte # (Auto) 0.03 Prothrombin Time 10.1 Prothrombin Time INR 1.0 PTT 25.2 Partial Thromboplastin Ratio 1.0 Sodium Level 133 Potassium Level 3.5 Chloride Level 101 Carbon Dioxide Level 23 Anion Gap 9.0 Blood Urea Nitrogen 8 Creatinine 0.59 Est Creatinine Clear Calc Drug Dose 84.3 Estimated GFR () 113.1 Estimated GFR (Non- 97.5 BUN/Creatinine Ratio 13.4 Random Glucose 100 Calcium Level 8.8 Total Bilirubin 0.5 Direct Bilirubin 0.1 Aspartate Amino Transferase (AST) 23 Alanine Aminotransferase (ALT) 24 Alkaline Phosphatase 105 Total Protein 6.9 Albumin 3.8 Lipase 164 Salicylates Level 2.6 Acetaminophen Level < 2 Ethyl Alcohol mg/dL < 3.0 Urine Color YELLOW Urine Appearance CLEAR Urine pH 7.0 Urine Specific [place] 1.009 Urine Protein NEG Urine Glucose (UA) NEG Urine Ketones NEG Urine Occult Blood TRACE Urine Nitrite NEG Urine Bilirubin NEG Urine Urobilinogen NEG Urine Leukocyte Esterase TRACE Urine WBC (Auto) 1-5 Urine RBC (Auto) 0-4 Urine Hyaline Casts (Auto) 0 Urine Epithelial Cells (Auto) 10-20 Urine Bacteria (Auto) NEG Urine Opiates Screen NEG Urine Methadone, Qualitative NEG Urine Barbiturates NEG Urine Phencyclidine (PCP) Level NEG Ur Amphetamine/Methamphetamine NEG MDMA (Ecstasy) Screen NEG Urine Benzodiazepines Screen NEG Urine Cocaine Metabolite NEG Urine Marijuana (THC) NEG POC Glucose 109 Total Creatine Kinase Thyroid Stimulating Hormone (TSH) 6.050 Test 04/16/17 21:10 04/18/17 07:13 Total Creatine Kinase 521 Fasting Glucose 87 Triglycerides Level 67 Cholesterol Level 161 HDL Cholesterol 63 LDL Cholesterol, Calculated 85 VLDL Cholesterol, Calculated 13 Cholesterol/HDL Ratio 2.6 Thyroid Stimulating Hormone (TSH) 6.800 Free Thyroxine 1.17 Total Time Total Time Spent (min): Greater than 30 minutes Total Time Included: examination of the patient, discharge planning, medication reconciliation Tobacco Cessation at Discharge Smoking Status: Never Smoker FDA approved Prescription: non-smoker Antipsychotic Meds Rationale The patient is continuing 2 antipsychotics due to a history of a minimum of 3 failed trials of monotherapy and extensive history of antipsychotic trials: Zyprexa, Risperdal, Geodon, Abilify, Haldol, Saphris, Vraylar and Seroquel. Plan upon admission was to taper to monotherapy with long-acting injectable due to previous use of multiple antipsychotic medications; however, patient is not willing for this at this point in time. Problem Qualifiers (1) Schizoaffective disorder: Schizoaffective disorder type: bipolar Qualified Codes: F25.0 - Schizoaffective disorder, bipolar type
[2017-04-29] MEDS ORDERED: ATR25 PO (10:25)
[2017-04-29] MEDS ORDERED: SRQ/100 PO (10:25)
[2017-04-29] MEDS ORDERED: BENZ-88 PO (10:25)
--- NOTE | 2017-04-29 10:38 | Psych Management Progress Note ---
Psychiatry Miscellaneous Date of Service: Apr 29, 2017. Patient seen, MS assessed. Rates mood as 100/10, she joked with peers about appearing in court in hospital scrubs and her slippers. Electric Welder Helper and police aware of her other weapons and will secure. Encouraged cooperation with care and treatment plan as outlined by allied health prescriber.
[2017-04-29] MEDS: BENZTROPINE MESYLATE 1 MG TAB PO PRN ×2 (11:26→18:46)
[2017-04-29] MEDS: QUETIAPINE FUMARATE 100 MG TAB PO PRN (13:18)
--- NOTE | 2017-04-29 14:13 | Psychiatric Progress Notes ---
Progress Note Date of Service Apr 29, 2017. Interval History Lorna Piedra is a 61-year-old female admitted on Apr 16, 2017 at 22:19 who currently lives in [place] alone. Lorna Piedra was admitted on a 302 involuntary commitment. Patient is admitted from the ED where she required multiple chemical and physical restraints for agitation. The patient was brought to the ED by the police and there is an active warrant for her arrest on multiple counts of terroristic threats. The police are to be notified prior to discharge. Chief Complaint "I'm so excited I'm crying". Subjective Patient was seen & assessed interval progress reviewed with Treatment Team. Staff reports aftercare in place for both medications and therapy. Current plan is that patient's traffic law attorney will pick her up at discharge and escort her to her court hearing. Uncertain at this time of patient's disposition, but traffic law attorney confirmed that should patient be released, weapons will be removed from her home. Pt was seen and assessed today to discuss readiness for discharge. Pt states, "I'm so excited that I'm crying". Pt reports that "everything" has been better since her admission and she feels that her "brain has been healed". Pt states prior to her admission she was very irritable, and feels that she is more relaxed and able to calm herself down. Pt was questioned on thoughts about going before a printing estimator at discharge to which she replied, "I'm letting God handle it." Pt is aware of plans for her traffic law attorney to escort her to the courthouse. Pt denies SI, HI, and A/V hallucinations today. 140 - Hearing has been postponed to Tuesday, of which patient is aware. Sea Kay[employer] Guide still plans to escort patient to her hearing, but patient will be staying through the weekend as it is unwise for her to unsupervised at home given both her psychiatric and legal history. Review of Systems Psych: denies symptoms other than stated above Constitutional: denied Cardiovascular: denied GI: denied Neurologic: denied Remainder of 10 body systems also reviewed and denied other than noted above. Sleep Information Total Hours of Sleep: 7.25 Meal Information Percent of Breakfast Consumed: 40 Percent of Lunch Consumed: 15 Percent of Dinner Consumed: 10 Mental Status Exam During interview pt is: alert and oriented, cooperative Appearance: appropriately dressed, appropriately groomed Eye contact is: good Motor behavior is: steady gait & station, no abnormal motor movements Speech: other (unpressured, remains hyperverbal) Affect: euthymic (excited) Mood is: other ("I'm so excited") Thought process: circumstantial Thought content: cognitive distortions Suicidal thought are: denied Homicidal thoughts are: denied Hallucinations: denies auditory, denies visual Cognition: language grossly intact, other (likely impairment of memory and attention) Intelligence estimated to be: average Insight: impaired Judgement: impaired Medication Trials Remeron, Prozac, Wellbutrin, Celexa, Paxil (?withdrawal seizure), Zoloft Seroquel, Saphris, Zyprexa, Risperdal, Geodon, Abilify (GI), Vraylar 2017 (3 mg) , Haldol cogentin, amantadine buspar, klonopin, Ativan trazodone, neurontin Depakote (helpful), lithium (nonspecific bad reaction) Impression Pt continues to show stability with medications; however still not under great control medically as she is in opposition to many medication adjustments. Plan in place for discharge to court hearing today; however, hearing has been postponed to Tuesday. Due to lack of supervision at home, patient requires hospitalization until her court hearing. Pt is a potential threat to herself and others with regard to her psychiatric and legal history and discharge before her hearing is not ideal. Will continue current medication regimen and monitor through the weekend. Plan (1) Schizoaffective disorder 04/17--The patient is admitted to [facility] ([facility]) on q 15 min checks (behavioral with suicide precautions) for safety. The patient will participate in group, recreational and milieu therapies and will be offered additional individual and family sessions as clinically appropriate. Case reviewed with outpatient psychiatrist. She is agreeable to restart higher dose of Seroquel and will take 200 mg this hs with additional 100 mg po prn, likely should be retitrated to at least [address] Decker would support retrial of adjunctive depakote and/or conversion to injectable. multiple prns ordered should she become agitated, MNPR given unpredictable behavior 04/18 - increase quetiapine to 300 mg daily at bedtime and continue 100 mg when necessary dose. Continue haloperidol 5 mg and lorazepam 2 mg as needed. Continue benztropine as needed. - Consider Depakote versus more potent antipsychotic with a long acting injectable option. Today she is unwilling/unable to participate in the discussion of medication options. - Fasting lipid profile and glucose performed today and were normal. - Continue medically necessary private room due to psychosis and agitation/ aggression. 04/19 - Start Invega 3 mg. HS, continue Seroquel for now. - Continue to encourage AHUMADA Sustenna - May have akathisia, will have staff attempt a Garcia Akathisia Rating Scale - Artane 5 mg. NOW - Complaining of pain. Will order Ibuprofen 600 mg. QID prn 04/20 - Increase paliperidone to 6mg qhs. Continue quetiapine 300 mg daily at bedtime for now, due to severity of manic symptoms, and prn quetiapine (100 mg every 6 hours when necessary) and haloperidol/lorazepam for agitation. Could consider when necessary chlorpromazine if quetiapine is not beneficial, or clonazepam. - File for 303 commitment, hearing to be held tomorrow. Patient informed. - Coordinate care with Dr. Decker at the patient's request. - Continue MNPR due to severity of mirna, disorganization, and irritability. 04/21 - 303 commitment granted. - Continue Invega 6 mg daily and quetiapine 300 mg daily at bedtime. We will continue to discuss the recommendations for long-acting injectable ( Sustenna), and hopefully she will agree to this. This is indicated due to her noncompliance with oral medications, severity of symptoms, and we'll also ensure that she is medicated while in residential. - clearing tub worker to contact forensic case advocate, Mary Shah, so that she can follow the patient while incarcerated. - Continue medically necessary private room due to severity of mirna and erratic, inappropriate behaviors. - The patient may be able to start making plans for a family meeting, possibly with sister or adult sons. 04/22 - Haldol 5mg BID scheduled as patient has found it helpful with restlessness and agitation. - Continue Invega 6mg daily and 300mg quetiapine at bedtime. Unwilling for increase in Invega at this time, but may be more willing tomorrow. - Continue MNPR due to current manic episode and irritability. 04/23 - Will continue medications as above. Would be ideal to eliminate need for 3 separate agents if possible, but patient is currently resistant to certain medication changes. - Continue MNPR due to manic behavior and irritability, as well as terroristic threat charge pending. - Continue to encourage group participation where appropriate. 04/24 - Taper invega to 3mg today and increase haldol from 5mg po bid to 5mg AM and 10mg/hs, continue seroquel 300mg/hs with 100mg q6h prn (taking about one time a day prn) - Continue MNPR due to manic behavior, intrusive and talkative and unable to observe boundaries in bedroom space (e.g. talk to roommate incessantly, intrusive in interpersonal space) and terroristic threat charge pending. - Encourage group where appropriate. 04/25 - Increase quetiapine to 400mg qhs, and haloperidol 5 mg every morning and 10 mg daily at bedtime, and complete taper off paliperidone. - Continue medically necessary private room. Encourage groups when able to control behavior. 04/27 - Continue quetiapine and haloperidol, as the patient is refusing to increase the dose of one and consolidate to one antipsychotic. Discontinue paliperidone. It may actually be beneficial for her to be on 2 antipsychotics, as she is already parkinsonian on the haloperidol, and her manic symptoms similar not well controlled. She is refusing higher dose of quetiapine. - The patient's sister indicates that she has not been at baseline for many months, and it will likely be a long slow process for her to recover completely. She is still distractible and requires frequent redirection, and we will continue to try to stabilize her symptoms as much a possible in preparation for transfer to residential. 04/28 - Continue quetiapine and haloperidol as above. Continue to recommend AHUMADA, which patient is not agreeable to at this time. Pt continues to be distractible and requires redirection during encounters. Pt feels she has been improving and denies complaints today. - Pt to be transported to court hearing tomorrow by her traffic law attorney. She states she will be taken home after the hearing. - MNPR discontinued this morning. Pt reports no safety concerns and would benefit from the opportunity to tolerate a roommate and show control of mood and behaviors. - Continue to encourage group participation when appropriate. 04/29 - Continue current medications - Hearing postponed to Tuesday, is to be discharged and escorted by traffic law attorney at that time. (2) Benzodiazepine abuse Patient is unable to participate in meaningful discussion around this and ETOH use, unclear if use disorder on the latter and will cover with AWSS protocol. Outpatient provider is clear he will no longer Rx any benzos for this patient. 04/19 - patient continues to demand multiple controlled substances, including stimulants, benzodiazepines, and CBD oil. Would not recommend she be prescribed any controlled substances outside of the hospital due to the high risk of abuse/misuse/exacerbation of symptoms. - No signs of alcohol or benzodiazepine withdrawal, so we'll discontinue AWSS protocol. 04/27 - Brief intervention was offered and accepted Intervention was greater than 5 min in length. Brief interventions include: 1. Assess Readiness to Quit, 2. Advise: Help Patient to Reduce or Abstain from Alcohol, 3. Agree: Set Specific, Feasible Goals, 4. Assist: Anticipate barriers, Problem-Solving Solutions. Social work to 5. Arrange: Referrals to appropriate treatment. Summary of intervention: The patient is in precontemplation stage with regards to transtheoretical model of change. The patient is advised to decrease alcohol consumption due to depressant effects and risk of interactions with prescription medications. The patient agreed to follow-up with her outpatient providers, and will be provided with recovery materials to continue to education self on how to cope with their condition without drinking/using cannabis or other controlled substances. (3) Hypothyroidism TSH >5 on admission, repeat panel. 04/18 - repeat TSH elevated at 6.8, but free T4 normal at 1.17. (4) Legal intervention active arrest warrant for terroristic threats 04/18 - patient signed release for police, social services analyst contacted them and they confirmed that they will be picking her up at discharge. 04/21 - social services analyst to contact Mary Shah, forensic case advocate, so that she can follow with the patient while in residential. 04/28 - Staff and patient report patient will be transported to her court hearing by her traffic law attorney tomorrow at discharge. 04/29 - Hearing postponed to Tuesday. Plan to discharge and be escorted to hearing by traffic law attorney at that time. Discharge / Aftercare Planning Primary Care Physician: Name: Dr. Yuri Carlson Date of Appointment: May 09, 2017 Time of Appointment: 1:15 p.m. Appointment Notes: [address], [place] [address] Psychiatrist: Name: Dr Decker [facility] Date of Appointment: May 04, 2017 Time of Appointment: 1:35 p.m. Appointment Notes: [address] [facility] [address], [place], [place] Therapist: Name: [facility] - Mary Maldonado Date of Appointment: May 10, 2017 Time of Appointment: 9:00 Appointment Notes: [address] [facility] [address] [facility] [place] Manager Non Profit: Name: Justin QuinteroashelySandy Cornell Date of Appointment: May 06, 2017 Time of Appointment: 9:00 a.m. Appointment Notes: Will meet with you at home Other: Name of Appointment #1: [facility] Appointment #1 Notes: referral made, will follow up with [facility] for payment options Visit Code E&M Code: 69550 Inventory Assets Strengths: intelligent, has outpatient psychiatrist, willing to take PO meds at this point Needs: therapist/community resources outside of [facility], clarification of legal situation Risk Factors Assessment : Yes /single/: Yes Higher / Fall in social status: Yes Access to guns: No Health problems: No Mental Health Diagnoses: Yes Substance use disorders: Yes Previous attempt: Yes Previous psychiatric stay: Yes Protective Factors Assessment : No Responsible for young children: No Employed: No Supportive family: Yes (sister is POA) Data Vital Signs Last 24 Hrs: Date Time Temp Pulse Resp B/P (MAP) Pulse Ox O2 Delivery O2 Flow Rate FiO2 04/29/17 07:02 36.6 81 16 110/72 84 110/72 Problem Qualifiers (1) Schizoaffective disorder: Schizoaffective disorder type: bipolar Qualified Codes: F25.0 - Schizoaffective disorder, bipolar type
[2017-04-29] MEDS: QUETIAPINE FUMARATE 100 MG TAB PO SCH (21:04)
[2017-04-30] MEDS: hydrOXYzine HCL 25 MG TAB PO PRN ×4 (01:05→17:41)
[2017-04-30 06:53] VITALS: BP_SYST 103; BP_SYST 121; BP_DIAS 80; BP_DIAS 86; PULSE 80; PULSE 89; TEMP 36.9
[2017-04-30] MEDS: [UNRECOGNIZED DRUG - OTHER] SCH (08:07)
[2017-04-30] MEDS: LEVOTHYROXINE 100 MCG TAB PO SCH (08:42)
[2017-04-30] MEDS: DOCUSATE SODIUM 100 MG CAP PO SCH ×2 (08:44→22:27)
[2017-04-30] MEDS: LACTOBACILLUS ACIDOPHILUS (FLORANEX) TAB PO SCH ×2 (08:44→22:27)
[2017-04-30] MEDS: CHOLECALCIFEROL 1000 INTER.UNIT TAB PO SCH (08:45)
[2017-04-30] MEDS: HALOPERIDOL 5 MG TAB PO SCH ×2 (08:45→22:27)
[2017-04-30] MEDS: RANITIDINE HCL 150 MG TAB PO SCH ×2 (08:46→22:28)
[2017-04-30] MEDS: BOOST BREEZE NUTRITION DRINK 1 BOX PO SCH ×3 (08:48→17:40)
--- NOTE | 2017-04-30 09:22 | Psychiatric Progress Notes ---
Progress Note Date of Service Apr 30, 2017. Interval History Lorna Piedra is a 61-year-old female admitted on Apr 16, 2017 at 22:19 who currently lives in [place] alone. Lorna Piedra was admitted on a 302 involuntary commitment. Patient is admitted from the ED where she required multiple chemical and physical restraints for agitation. The patient was brought to the ED by the police and there is an active warrant for her arrest on multiple counts of terroristic threats. The police are to be notified prior to discharge. Chief Complaint "I have 3 questions, I wrote them down, but I think they're still in my head". Subjective Patient was seen & assessed interval progress reviewed with Nursing. Staff reported that patients hearing had been postponed and anticipated discharge for yesterday was cancelled. Staff reports patient took the news well. She was tearful for several minutes, but gathered herself and reported herself a "100 out of 10" last evening. Pt was seen today to assess progress since admission. Pt states she has 3 questions. Pt is interested in decreasing her bedtime dose of Seroquel from 400mg to 300mg as "I know the 300 works". Pt also reports "I want Trazodone in place of the extra 100 of Seroquel". Discussed with patient the importance of stability on medications and hesitation to alter doses as she has been improving and is nearing discharge. Reminded patient of previous conversations in which we discussed medication changes that could occur on an outpatient basis. Pt was agreeable to this. Pt then states, "I have to go, I've sat here long enough, thanks." Review of Systems Psych: denies symptoms other than stated above Constitutional: reports increased diaphoresis in hands and feet Cardiovascular: denied GI: denied Neurologic: denied Remainder of 10 body systems also reviewed and denied other than noted above. Sleep Information Total Hours of Sleep: 7.25 Meal Information Percent of Breakfast Consumed: 40 Percent of Lunch Consumed: 15 Percent of Dinner Consumed: 90 Mental Status Exam During interview pt is: alert and oriented, cooperative Appearance: appropriately dressed, appropriately groomed ("I'm wearing makeup today") Eye contact is: good Motor behavior is: steady gait & station, no abnormal motor movements Speech: other (remains hyperverbal) Affect: anxious (about thoughts on medications) Mood is: anxious Thought process: circumstantial Thought content: cognitive distortions Suicidal thought are: denied Homicidal thoughts are: denied Hallucinations: denies auditory, denies visual Cognition: language grossly intact, other (impaired memory and attention) Intelligence estimated to be: average Insight: impaired Judgement: impaired Medication Trials Remeron, Prozac, Wellbutrin, Celexa, Paxil (?withdrawal seizure), Zoloft Seroquel, Saphris, Zyprexa, Risperdal, Geodon, Abilify (GI), Vraylar 2017 (3 mg) , Haldol cogentin, amantadine buspar, klonopin, Ativan trazodone, neurontin Depakote (helpful), lithium (nonspecific bad reaction) Impression Showing stability with medications, but unsure of baseline behavior. Remains opposed to beneficial medication adjustments. Pt interested in decreasing her dose of Seroquel and adding Trazodone. Discussed with patient uncertainty of status after discharge and our desire to see stability on current medications before change, especially decrease. Pt was understanding of this. Pt requires inpatient mental health treatment until her court hearing on Tuesday as she lacks supervision at home and is at high risk of harm to self or others both due to mental state and legal charges of terroristic threats. Will likely benefit from monitoring through the weekend. Plan (1) Schizoaffective disorder 04/17--The patient is admitted to [facility] ([facility] inpatient [facility] health unit) on q 15 min checks (behavioral with suicide precautions) for safety. The patient will participate in group, recreational and milieu therapies and will be offered additional individual and family sessions as clinically appropriate. Case reviewed with outpatient psychiatrist. She is agreeable to restart higher dose of Seroquel and will take 200 mg this hs with additional 100 mg po prn, likely should be retitrated to at least [address] Decker would support retrial of adjunctive depakote and/or conversion to injectable. multiple prns ordered should she become agitated, MNPR given unpredictable behavior 04/18 - increase quetiapine to 300 mg daily at bedtime and continue 100 mg when necessary dose. Continue haloperidol 5 mg and lorazepam 2 mg as needed. Continue benztropine as needed. - Consider Depakote versus more potent antipsychotic with a long acting injectable option. Today she is unwilling/unable to participate in the discussion of medication options. - Fasting lipid profile and glucose performed today and were normal. - Continue medically necessary private room due to psychosis and agitation/ aggression. 04/19 - Start Invega 3 mg. HS, continue Seroquel for now. - Continue to encourage AHUMADA Sustenna - May have akathisia, will have staff attempt a Garcia Akathisia Rating Scale - Artane 5 mg. NOW - Complaining of pain. Will order Ibuprofen 600 mg. QID prn 04/20 - Increase paliperidone to 6mg qhs. Continue quetiapine 300 mg daily at bedtime for now, due to severity of manic symptoms, and prn quetiapine (100 mg every 6 hours when necessary) and haloperidol/lorazepam for agitation. Could consider when necessary chlorpromazine if quetiapine is not beneficial, or clonazepam. - File for 303 commitment, hearing to be held tomorrow. Patient informed. - Coordinate care with Dr. Decker at the patient's request. - Continue MNPR due to severity of mirna, disorganization, and irritability. 04/21 - 303 commitment granted. - Continue Invega 6 mg daily and quetiapine 300 mg daily at bedtime. We will continue to discuss the recommendations for long-acting injectable ( Sustenna), and hopefully she will agree to this. This is indicated due to her noncompliance with oral medications, severity of symptoms, and we'll also ensure that she is medicated while in [facility]. - [employer]ra[employer] worker to contact forensic disease case manager, Mary Shah, so that she can follow the patient while incarcerated. - Continue medically necessary private room due to severity of mirna and erratic, inappropriate behaviors. - The patient may be able to start making plans for a family meeting, possibly with sister or adult sons. 04/22 - Haldol 5mg BID scheduled as patient has found it helpful with restlessness and agitation. - Continue Invega 6mg daily and 300mg quetiapine at bedtime. Unwilling for increase in Invega at this time, but may be more willing tomorrow. - Continue MNPR due to current manic episode and irritability. 04/23 - Will continue medications as above. Would be ideal to eliminate need for 3 separate agents if possible, but patient is currently resistant to certain medication changes. - Continue MNPR due to manic behavior and irritability, as well as terroristic threat charge pending. - Continue to encourage group participation where appropriate. 04/24 - Taper invega to 3mg today and increase haldol from 5mg po bid to 5mg AM and 10mg/hs, continue seroquel 300mg/hs with 100mg q6h prn (taking about one time a day prn) - Continue MNPR due to manic behavior, intrusive and talkative and unable to observe boundaries in bedroom space (e.g. talk to roommate incessantly, intrusive in interpersonal space) and terroristic threat charge pending. - Encourage group where appropriate. 04/25 - Increase quetiapine to 400mg qhs, and haloperidol 5 mg every morning and 10 mg daily at bedtime, and complete taper off paliperidone. - Continue medically necessary private room. Encourage groups when able to control behavior. 04/27 - Continue quetiapine and haloperidol, as the patient is refusing to increase the dose of one and consolidate to one antipsychotic. Discontinue paliperidone. It may actually be beneficial for her to be on 2 antipsychotics, as she is already parkinsonian on the haloperidol, and her manic symptoms similar not well controlled. She is refusing higher dose of quetiapine. - The patient's sister indicates that she has not been at baseline for many months, and it will likely be a long slow process for her to recover completely. She is still distractible and requires frequent redirection, and we will continue to try to stabilize her symptoms as much a possible in preparation for transfer to [facility]. 04/28 - Continue quetiapine and haloperidol as above. Continue to recommend AHUMADA, which patient is not agreeable to at this time. Pt continues to be distractible and requires redirection during encounters. Pt feels she has been improving and denies complaints today. - Pt to be transported to court hearing tomorrow by her deputy prosecuting attorney. She states she will be taken home after the hearing. - MNPR discontinued this morning. Pt reports no safety concerns and would benefit from the opportunity to tolerate a roommate and show control of mood and behaviors. - Continue to encourage group participation when appropriate. 04/29 - Continue current medications - Hearing postponed to Tuesday, is to be discharged and escorted by deputy prosecuting attorney at that time. 04/30 - Continue medications as above. - Discharge planned for Tuesday. (2) Benzodiazepine abuse Patient is unable to participate in meaningful discussion around this and ETOH use, unclear if use disorder on the latter and will cover with AWSS protocol. Outpatient provider is clear he will no longer Rx any benzos for this patient. 04/19 - patient continues to demand multiple controlled substances, including stimulants, benzodiazepines, and CBD oil. Would not recommend she be prescribed any controlled substances outside of the hospital due to the high risk of abuse/misuse/exacerbation of symptoms. - No signs of alcohol or benzodiazepine withdrawal, so we'll discontinue AWSS protocol. 04/27 - Brief intervention was offered and accepted Intervention was greater than 5 min in length. Brief interventions include: 1. Assess Readiness to Quit, 2. Advise: Help Patient to Reduce or Abstain from Alcohol, 3. Agree: Set Specific, Feasible Goals, 4. Assist: Anticipate barriers, Problem-Solving Solutions. Social work to 5. Arrange: Referrals to appropriate treatment. Summary of intervention: The patient is in precontemplation stage with regards to transtheoretical model of change. The patient is advised to decrease alcohol consumption due to depressant effects and risk of interactions with prescription medications. The patient agreed to follow-up with her outpatient providers, and will be provided with recovery materials to continue to education self on how to cope with their condition without drinking/using cannabis or other controlled substances. (3) Hypothyroidism TSH >5 on admission, repeat panel. 04/18 - repeat TSH elevated at 6.8, but free T4 normal at 1.17. (4) Legal intervention active arrest warrant for terroristic threats 04/18 - patient signed release for police, social services director contacted them and they confirmed that they will be picking her up at discharge. 04/21 - social services director to contact Mary Shah, forensic disease case manager, so that she can follow with the patient while in [facility]. 04/28 - Staff and patient report patient will be transported to her court hearing by her deputy prosecuting attorney tomorrow at discharge. 04/29 - Hearing postponed to Tuesday. Plan to discharge and be escorted to hearing by deputy prosecuting attorney at that time. Discharge / Aftercare Planning Primary Care Physician: Name: Dr. Yuri Carlson Date of Appointment: May 09, 2017 Time of Appointment: 1:15 p.m. Appointment Notes: [place] [id number] Psychiatrist: Name: Dr Decker, [facility] Date of Appointment: May 04, 2017 Time of Appointment: 1:35 p.m. [facility]ist: Name: JENNIFER Hernandez Joel Date of Appointment: May 10, 2017 Time of Appointment: 9:00 Appointment Notes: [address] [facility] [place] [employer]: Name: Justin AlexandraYesseniaSandy Cornell Date of Appointment: May 06, 2017 Time of Appointment: 9:00 a.m. Appointment Notes: Will meet with you at home Other: Name of Appointment #1: [facility] Appointment #1 Notes: referral made, will follow up with [facility] for payment options Visit Code E&M Code: 24719 Inventory Assets Strengths: intelligent, has outpatient psychiatrist, willing to take PO meds at this point Needs: therapist/community resources outside of [facility], clarification of legal situation Risk Factors Assessment : Yes /single/: Yes Higher / Fall in social status: Yes Access to guns: No Health problems: No Mental Health Diagnoses: Yes Substance use disorders: Yes Previous attempt: Yes Previous psychiatric stay: Yes Protective Factors Assessment : No Responsible for young children: No Employed: No Supportive family: Yes (sister is POA) Data Vital Signs Last 24 Hrs: Date Time Temp Pulse Resp B/P (MAP) Pulse Ox O2 Delivery O2 Flow Rate FiO2 04/30/17 06:53 36.9 80 18 121/80 89 103/86 Problem Qualifiers (1) Schizoaffective disorder: Schizoaffective disorder type: bipolar Qualified Codes: F25.0 - Schizoaffective disorder, bipolar type
[2017-04-30] MEDS: BENZTROPINE MESYLATE 1 MG TAB PO PRN (14:50)
[2017-04-30] MEDS: QUETIAPINE FUMARATE 100 MG TAB PO PRN (16:32)
[2017-04-30] MEDS: COUGH DROP (SUGAR FREE) LOZ 24 LOZ/1 BOX LOZ PRN (16:32)
[2017-04-30] MEDS: QUETIAPINE FUMARATE 100 MG TAB PO SCH (22:32)
[2017-05-01] MEDS: hydrOXYzine HCL 25 MG TAB PO PRN ×3 (01:43→14:42)
[2017-05-01 06:45] VITALS: BP_SYST 108; BP_SYST 95; BP_DIAS 60; BP_DIAS 72; PULSE 80; PULSE 90; TEMP 36.5
[2017-05-01] MEDS: LEVOTHYROXINE 100 MCG TAB PO SCH (07:12)
[2017-05-01] MEDS: DOCUSATE SODIUM 100 MG CAP PO SCH ×2 (08:33→21:59)
[2017-05-01] MEDS: LACTOBACILLUS ACIDOPHILUS (FLORANEX) TAB PO SCH ×2 (08:33→22:00)
[2017-05-01] MEDS: HALOPERIDOL 5 MG TAB PO SCH ×2 (08:35→22:00)
[2017-05-01] MEDS: RANITIDINE HCL 150 MG TAB PO SCH ×2 (08:35→22:02)
[2017-05-01] MEDS: CHOLECALCIFEROL 1000 INTER.UNIT TAB PO SCH (08:35)
[2017-05-01] MEDS: PSYLLIUM 58.6% PWD PACK S\\F PO SCH (08:37)
[2017-05-01] MEDS: BOOST BREEZE NUTRITION DRINK 1 BOX PO SCH ×3 (09:00→17:45)
[2017-05-01] MEDS: BENZTROPINE MESYLATE 1 MG TAB PO PRN ×2 (09:12→18:09)
[2017-05-01] MEDS: QUETIAPINE FUMARATE 100 MG TAB PO PRN (10:34)
--- NOTE | 2017-05-01 11:29 | Psychiatric Progress Notes ---
Progress Note Date of Service May 01, 2017. Interval History Lorna Piedra is a 61-year-old female admitted on Apr 16, 2017 at 22:19 who currently lives in [place] alone. Lorna Piedra was admitted on a 302 involuntary commitment. Patient is admitted from the ED where she required multiple chemical and physical restraints for agitation. The patient was brought to the ED by the police and there is an active warrant for her arrest on multiple counts of terroristic threats. The police are to be notified prior to discharge. Chief Complaint "I'm 100%". Subjective Patient was seen & assessed interval progress reviewed with Treatment Team. The patient says that she is tired in trying to catch up on her sleep today. During her stay she reports having "significant emotional and physical healing" and believes that her thinking is now clear. She continues to object to the amount of Seroquel she is on, wanting only to take 300 mg at bedtime. She is unable to stay to sit still during the interview, but refuses to go back on Artane which was helpful to her restlessness earlier in her stay. She is aware that her staff attorney will pick her up at discharged tomorrow to go to the wheelchair van driver regarding her charges and she does not know what the outcome will be but is hopeful. She denies any suicidal or homicidal thinking, auditory or visual hallucinations. Staff report that she slept for 11 hours last night. She cuts the interview short because she wants to return to bed. Review of Systems Constitutional: + fatigue ENT: No hearing loss, No unusual epistaxis, No nasal symptoms, No sore throat, No tinnitus, No dental problems, No trouble swallowing, No problem reported Respiratory: No cough, No sputum, No wheezing, No shortness of breath, No dyspnea on exertion, No dyspnea at rest, No hemoptysis, No problem reported Cardiovascular: No chest pain, No orthopnea, No PND, No edema, No claudication , No palpitations, No problem reported Abdomen: No pain, No nausea, No vomiting, No diarrhea, No constipation, No GI bleeding, No problem reported Musculoskeletal: No joint pain, No muscle pain, No swelling, No calf pain, No problem reported Neurologic: + problem reported Psychiatric: + problem reported (I'm 100%) Sleep Information Total Hours of Sleep: 11.50 Meal Information Percent of Breakfast Consumed: 10 Percent of Lunch Consumed: 10 Percent of Dinner Consumed: 40 Mental Status Exam During interview pt is: alert and oriented, cooperative Appearance: appropriately dressed, appropriately groomed ("I'm wearing makeup today") Eye contact is: good Motor behavior is: steady gait & station, no abnormal motor movements Speech: other (remains hyperverbal) Affect: anxious (about thoughts on medications) Mood is: anxious Thought process: circumstantial Thought content: cognitive distortions Suicidal thought are: denied Homicidal thoughts are: denied Hallucinations: denies auditory, denies visual Cognition: language grossly intact, other (impaired memory and attention) Intelligence estimated to be: average Insight: impaired Judgement: impaired Medication Trials Remeron, Prozac, Wellbutrin, Celexa, Paxil (?withdrawal seizure), Zoloft Seroquel, Saphris, Zyprexa, Risperdal, Geodon, Abilify (GI), Vraylar 2017 (3 mg) , Haldol cogentin, amantadine buspar, klonopin, Ativan trazodone, neurontin Depakote (helpful), lithium (nonspecific bad reaction) Impression Showing stability with medications, but unsure of baseline behavior. She wants her meds reduced, but in view of upcoming elevation in her stress levels with potential senior living time, recommend continuing current doses. She is experiencing akathisia, but is refusing to consider artane and BP too low for inderal. Anticipate discharge tomorrow to custody of her assistant attorney general. Plan (1) Schizoaffective disorder 04/17--The patient is admitted to [facility] ([facility]) on q 15 min checks (behavioral with suicide precautions) for safety. The patient will participate in group, recreational and milieu therapies and will be offered additional individual and family sessions as clinically appropriate. Case reviewed with outpatient psychiatrist. She is agreeable to restart higher dose of Seroquel and will take 200 mg this hs with additional 100 mg po prn, likely should be retitrated to at least [address] Decker would support retrial of adjunctive depakote and/or conversion to injectable. multiple prns ordered should she become agitated, MNPR given unpredictable behavior 04/18 - increase quetiapine to 300 mg daily at bedtime and continue 100 mg when necessary dose. Continue haloperidol 5 mg and lorazepam 2 mg as needed. Continue benztropine as needed. - Consider Depakote versus more potent antipsychotic with a long acting injectable option. Today she is unwilling/unable to participate in the discussion of medication options. - Fasting lipid profile and glucose performed today and were normal. - Continue medically necessary private room due to psychosis and agitation/ aggression. 04/19 - Start Invega 3 mg. HS, continue Seroquel for now. - Continue to encourage AHUMADA Sustenna - May have akathisia, will have staff attempt a Garcia Akathisia Rating Scale - Artane 5 mg. NOW - Complaining of pain. Will order Ibuprofen 600 mg. QID prn 04/20 - Increase paliperidone to 6mg qhs. Continue quetiapine 300 mg daily at bedtime for now, due to severity of manic symptoms, and prn quetiapine (100 mg every 6 hours when necessary) and haloperidol/lorazepam for agitation. Could consider when necessary chlorpromazine if quetiapine is not beneficial, or clonazepam. - File for 303 commitment, hearing to be held tomorrow. Patient informed. - Coordinate care with Dr. Decker at the patient's request. - Continue MNPR due to severity of mirna, disorganization, and irritability. 04/21 - 303 commitment granted. - Continue Invega 6 mg daily and quetiapine 300 mg daily at bedtime. We will continue to discuss the recommendations for long-acting injectable ( Sustenna), and hopefully she will agree to this. This is indicated due to her noncompliance with oral medications, severity of symptoms, and we'll also ensure that she is medicated while in senior living. - bridge gang worker to contact forensic case hardener, Mary Shah, so that she can follow the patient while incarcerated. - Continue medically necessary private room due to severity of mirna and erratic, inappropriate behaviors. - The patient may be able to start making plans for a family meeting, possibly with sister or adult sons. 04/22 - Haldol 5mg BID scheduled as patient has found it helpful with restlessness and agitation. - Continue Invega 6mg daily and 300mg quetiapine at bedtime. Unwilling for increase in Invega at this time, but may be more willing tomorrow. - Continue MNPR due to current manic episode and irritability. 04/23 - Will continue medications as above. Would be ideal to eliminate need for 3 separate agents if possible, but patient is currently resistant to certain medication changes. - Continue MNPR due to manic behavior and irritability, as well as terroristic threat charge pending. - Continue to encourage group participation where appropriate. 04/24 - Taper invega to 3mg today and increase haldol from 5mg po bid to 5mg AM and 10mg/hs, continue seroquel 300mg/hs with 100mg q6h prn (taking about one time a day prn) - Continue MNPR due to manic behavior, intrusive and talkative and unable to observe boundaries in bedroom space (e.g. talk to roommate incessantly, intrusive in interpersonal space) and terroristic threat charge pending. - Encourage group where appropriate. 04/25 - Increase quetiapine to 400mg qhs, and haloperidol 5 mg every morning and 10 mg daily at bedtime, and complete taper off paliperidone. - Continue medically necessary private room. Encourage groups when able to control behavior. 04/27 - Continue quetiapine and haloperidol, as the patient is refusing to increase the dose of one and consolidate to one antipsychotic. Discontinue paliperidone. It may actually be beneficial for her to be on 2 antipsychotics, as she is already parkinsonian on the haloperidol, and her manic symptoms similar not well controlled. She is refusing higher dose of quetiapine. - The patient's sister indicates that she has not been at baseline for many months, and it will likely be a long slow process for her to recover completely. She is still distractible and requires frequent redirection, and we will continue to try to stabilize her symptoms as much a possible in preparation for transfer to senior living. 04/28 - Continue quetiapine and haloperidol as above. Continue to recommend AHUMADA, which patient is not agreeable to at this time. Pt continues to be distractible and requires redirection during encounters. Pt feels she has been improving and denies complaints today. - Pt to be transported to court hearing tomorrow by her staff attorney. She states she will be taken home after the hearing. - MNPR discontinued this morning. Pt reports no safety concerns and would benefit from the opportunity to tolerate a roommate and show control of mood and behaviors. - Continue to encourage group participation when appropriate. 04/29 - Continue current medications - Hearing postponed to Tuesday, is to be discharged and escorted by staff attorney at that time. 04/30 - Continue medications as above. - Discharge planned for Tuesday. 05/01 - Continue current meds (2) Benzodiazepine abuse Patient is unable to participate in meaningful discussion around this and ETOH use, unclear if use disorder on the latter and will cover with AWSS protocol. Outpatient provider is clear he will no longer Rx any benzos for this patient. 04/19 - patient continues to demand multiple controlled substances, including stimulants, benzodiazepines, and CBD oil. Would not recommend she be prescribed any controlled substances outside of the hospital due to the high risk of abuse/misuse/exacerbation of symptoms. - No signs of alcohol or benzodiazepine withdrawal, so we'll discontinue AWSS protocol. 04/27 - Brief intervention was offered and accepted Intervention was greater than 5 min in length. Brief interventions include: 1. Assess Readiness to Quit, 2. Advise: Help Patient to Reduce or Abstain from Alcohol, 3. Agree: Set Specific, Feasible Goals, 4. Assist: Anticipate barriers, Problem-Solving Solutions. Social work to 5. Arrange: Referrals to appropriate treatment. Summary of intervention: The patient is in precontemplation stage with regards to transtheoretical model of change. The patient is advised to decrease alcohol consumption due to depressant effects and risk of interactions with prescription medications. The patient agreed to follow-up with her outpatient providers, and will be provided with recovery materials to continue to education self on how to cope with their condition without drinking/using cannabis or other controlled substances. (3) Hypothyroidism TSH >5 on admission, repeat panel. 04/18 - repeat TSH elevated at 6.8, but free T4 normal at 1.17. (4) Legal intervention active arrest warrant for terroristic threats 04/18 - patient signed release for police, clinical social worker contacted them and they confirmed that they will be picking her up at discharge. 04/21 - clinical social worker to contact Mary Shah, forensic case hardener, so that she can follow with the patient while in senior living. 04/28 - Staff and patient report patient will be transported to her court hearing by her staff attorney tomorrow at discharge. 04/29 - Hearing postponed to Tuesday. Plan to discharge and be escorted to hearing by staff attorney at that time. Discharge / Aftercare Planning Primary Care Physician: Name: Dr. Yuri Carlson Date of Appointment: May 09, 2017 Time of Appointment: 1:15 p.m. Appointment Notes: [address], [place] [address] Psychiatrist: Name[facility] Decker, [facility] Date of Appointment: May 04, 2017 Time of Appointment: 1:35 p.m. Appointment Notes: [address] [facility], [place] Therapist: Name: GURDEEP Yessenia Maldonado Date of Appointment: May 10, 2017 Time of Appointment: 9:00 Appointment Notes: [address] [facility] [place] [facility] [place] [employer] Journalist: Name: Justin QuinteroteresitaSandy Cornell Date of Appointment: May 06, 2017 Time of Appointment: 9:00 a.m. Appointment Notes: Will meet with you at home Other: Name of Appointment #1: [facility] Appointment #1 Notes: referral made, will follow up with [facility] for payment options Visit Code E&M Code: 12539 Inventory Assets Strengths: intelligent, has outpatient psychiatrist, willing to take PO meds at this point Needs: therapist/community resources outside of [facility], clarification of legal situation Risk Factors Assessment : Yes /single/: Yes Higher / Fall in social status: Yes Access to guns: No Health problems: No Mental Health Diagnoses: Yes Substance use disorders: Yes Previous attempt: Yes Previous psychiatric stay: Yes Protective Factors Assessment : No Responsible for young children: No Employed: No Supportive family: Yes (sister is POA) Data Vital Signs Last 24 Hrs: Date Time Temp Pulse Resp B/P (MAP) Pulse Ox O2 Delivery O2 Flow Rate FiO2 05/01/17 06:45 36.5 80 16 108/72 90 95/60 Meds Administered Last 24 Hrs: 04/16/17 16:54 Red Blood Count 3.79, Mean Corpuscular Volume 88.1, Mean Corpuscular Hemoglobin 30.1, Mean Corpuscular Hemoglobin Concent 34.1, Mean Platelet Volume 8.6, Neutrophils (%) (Auto) 82.3, Lymphocytes (%) (Auto) 6.9, Monocytes (%) (Auto) 8.9, Eosinophils (%) (Auto) 1.5, Basophils (%) (Auto) 0.2, Neutrophils # (Auto) 10.44, Lymphocytes # (Auto) 0.88, Monocytes # (Auto) 1.13, Eosinophils # (Auto) 0.19, Basophils # (Auto) 0.03 04/16/17 16:54 Test 04/16/17 16:54 04/16/17 17:00 04/16/17 17:16 04/16/17 21:10 White Blood Count 12.70 K/uL (4.8-10.8) Red Blood Count 3.79 M/uL (4.2-5.4) Hemoglobin 11.4 g/dL (12.0-16.0) Hematocrit 33.4 % (37-47) Mean Corpuscular Volume 88.1 fL (80-100) Mean Corpuscular Hemoglobin 30.1 pg (25-34) Mean Corpuscular Hemoglobin Concent 34.1 g/dl (32-36) Platelet Count 255 K/uL (130-400) Mean Platelet Volume 8.6 fL (7.4-10.4) Neutrophils (%) (Auto) 82.3 % Lymphocytes (%) (Auto) 6.9 % Monocytes (%) (Auto) 8.9 % Eosinophils (%) (Auto) 1.5 % Basophils (%) (Auto) 0.2 % Neutrophils # (Auto) 10.44 K/uL (1.4-6.5) Lymphocytes # (Auto) 0.88 K/uL (1.2-3.4) Monocytes # (Auto) 1.13 K/uL (0.11-0.59) Eosinophils # (Auto) 0.19 K/uL (0-0.5) Basophils # (Auto) 0.03 K/uL (0-0.2) RDW Standard Deviation 42.1 fL (36.4-46.3) RDW Coefficient of Variation 13.1 % (11.5-14.5) Immature Granulocyte % (Auto) 0.2 % Immature Granulocyte # (Auto) 0.03 K/uL (0.00-0.02) Prothrombin Time 10.1 SECONDS (9.0-12.0) Prothromb Time International Ratio 1.0 (0.9-1.1) Activated Partial Thromboplast Time 25.2 SECONDS (21.0-31.0) Partial Thromboplastin Ratio 1.0 Anion Gap 9.0 mmol/L (3-11) Est Creatinine Clear Calc Drug Dose 84.3 ml/min Estimated GFR () 113.1 Estimated GFR (Non- 97.5 BUN/Creatinine Ratio 13.4 (10-20) Calcium Level 8.8 mg/dl (8.5-10.1) Total Bilirubin 0.5 mg/dl (0.2-1) Direct Bilirubin 0.1 mg/dl (0-0.2) Aspartate Amino Transf (AST/SGOT) 23 U/L (15-37) Alanine Aminotransferase (ALT/SGPT) 24 U/L (12-78) Alkaline Phosphatase 105 U/L (45-117) Total Protein 6.9 gm/dl (6.4-8.2) Albumin 3.8 gm/dl (3.4-5.0) Lipase 164 U/L (73-393) Salicylates Level 2.6 mg/dl (2.8-20) Acetaminophen Level < 2 ug/ml (10-30) Ethyl Alcohol mg/dL < 3.0 mg/dl (0-3) Urine Color YELLOW Urine Appearance CLEAR (CLEAR) Urine pH 7.0 (4.5-7.5) Urine Specific [place] 1.009 (1.000-1.030) Urine Protein NEG (NEG) Urine Glucose (UA) NEG (NEG) Urine Ketones NEG (NEG) Urine Occult Blood TRACE (NEG) Urine Nitrite NEG (NEG) Urine Bilirubin NEG (NEG) Urine Urobilinogen NEG (NEG) Urine Leukocyte Esterase TRACE (NEG) Urine WBC (Auto) 1-5 /hpf (0-5) Urine RBC (Auto) 0-4 /hpf (0-4) Urine Hyaline Casts (Auto) 0 /lpf (0-5) Urine Epithelial Cells (Auto) 10-20 /lpf (0-5) Urine Bacteria (Auto) NEG (NEG) Urine Opiates Screen NEG (NEG) Urine Methadone, Qualitative NEG (NEG) Urine Barbiturates NEG (NEG) Urine Phencyclidine (PCP) Level NEG (NEG) Ur Amphetamine/Methamphetamine NEG (NEG) MDMA (Ecstasy) Screen NEG (NEG) Urine Benzodiazepines Screen NEG (NEG) Urine Cocaine Metabolite NEG (NEG) Urine Marijuana (THC) NEG (NEG) Bedside Glucose 109 mg/dl (70-90) Total Creatine Kinase 521 U/L (26-192) Test 04/18/17 07:13 Fasting Glucose 87 mg/dl (70-99) Triglycerides Level 67 mg/dl (0-150) Cholesterol Level 161 mg/dl (0-200) HDL Cholesterol 63 mg/dl LDL Cholesterol, Calculated 85 mg/dl VLDL Cholesterol, Calculated 13 mg/dl Cholesterol/HDL Ratio 2.6 Thyroid Stimulating Hormone (TSH) 6.800 uIu/ml (0.300-4.500) Free Thyroxine 1.17 ng/dl (0.80-1.60) Lab Results Last 24 Hrs: 04/16/17 16:54 Red Blood Count 3.79, Mean Corpuscular Volume 88.1, Mean Corpuscular Hemoglobin 30.1, Mean Corpuscular Hemoglobin Concent 34.1, Mean Platelet Volume 8.6, Neutrophils (%) (Auto) 82.3, Lymphocytes (%) (Auto) 6.9, Monocytes (%) (Auto) 8.9, Eosinophils (%) (Auto) 1.5, Basophils (%) (Auto) 0.2, Neutrophils # (Auto) 10.44, Lymphocytes # (Auto) 0.88, Monocytes # (Auto) 1.13, Eosinophils # (Auto) 0.19, Basophils # (Auto) 0.03 04/16/17 16:54 Test 04/16/17 16:54 04/16/17 17:00 04/16/17 17:16 04/16/17 21:10 White Blood Count 12.70 K/uL (4.8-10.8) Red Blood Count 3.79 M/uL (4.2-5.4) Hemoglobin 11.4 g/dL (12.0-16.0) Hematocrit 33.4 % (37-47) Mean Corpuscular Volume 88.1 fL (80-100) Mean Corpuscular Hemoglobin 30.1 pg (25-34) Mean Corpuscular Hemoglobin Concent 34.1 g/dl (32-36) Platelet Count 255 K/uL (130-400) Mean Platelet Volume 8.6 fL (7.4-10.4) Neutrophils (%) (Auto) 82.3 % Lymphocytes (%) (Auto) 6.9 % Monocytes (%) (Auto) 8.9 % Eosinophils (%) (Auto) 1.5 % Basophils (%) (Auto) 0.2 % Neutrophils # (Auto) 10.44 K/uL (1.4-6.5) Lymphocytes # (Auto) 0.88 K/uL (1.2-3.4) Monocytes # (Auto) 1.13 K/uL (0.11-0.59) Eosinophils # (Auto) 0.19 K/uL (0-0.5) Basophils # (Auto) 0.03 K/uL (0-0.2) RDW Standard Deviation 42.1 fL (36.4-46.3) RDW Coefficient of Variation 13.1 % (11.5-14.5) Immature Granulocyte % (Auto) 0.2 % Immature Granulocyte # (Auto) 0.03 K/uL (0.00-0.02) Prothrombin Time 10.1 SECONDS (9.0-12.0) Prothromb Time International Ratio 1.0 (0.9-1.1) Activated Partial Thromboplast Time 25.2 SECONDS (21.0-31.0) Partial Thromboplastin Ratio 1.0 Anion Gap 9.0 mmol/L (3-11) Est Creatinine Clear Calc Drug Dose 84.3 ml/min Estimated GFR () 113.1 Estimated GFR (Non- 97.5 BUN/Creatinine Ratio 13.4 (10-20) Calcium Level 8.8 mg/dl (8.5-10.1) Total Bilirubin 0.5 mg/dl (0.2-1) Direct Bilirubin 0.1 mg/dl (0-0.2) Aspartate Amino Transf (AST/SGOT) 23 U/L (15-37) Alanine Aminotransferase (ALT/SGPT) 24 U/L (12-78) Alkaline Phosphatase 105 U/L (45-117) Total Protein 6.9 gm/dl (6.4-8.2) Albumin 3.8 gm/dl (3.4-5.0) Lipase 164 U/L (73-393) Salicylates Level 2.6 mg/dl (2.8-20) Acetaminophen Level < 2 ug/ml (10-30) Ethyl Alcohol mg/dL < 3.0 mg/dl (0-3) Urine Color YELLOW Urine Appearance CLEAR (CLEAR) Urine pH 7.0 (4.5-7.5) Urine Specific [place] 1.009 (1.000-1.030) Urine Protein NEG (NEG) Urine Glucose (UA) NEG (NEG) Urine Ketones NEG (NEG) Urine Occult Blood TRACE (NEG) Urine Nitrite NEG (NEG) Urine Bilirubin NEG (NEG) Urine Urobilinogen NEG (NEG) Urine Leukocyte Esterase TRACE (NEG) Urine WBC (Auto) 1-5 /hpf (0-5) Urine RBC (Auto) 0-4 /hpf (0-4) Urine Hyaline Casts (Auto) 0 /lpf (0-5) Urine Epithelial Cells (Auto) 10-20 /lpf (0-5) Urine Bacteria (Auto) NEG (NEG) Urine Opiates Screen NEG (NEG) Urine Methadone, Qualitative NEG (NEG) Urine Barbiturates NEG (NEG) Urine Phencyclidine (PCP) Level NEG (NEG) Ur Amphetamine/Methamphetamine NEG (NEG) MDMA (Ecstasy) Screen NEG (NEG) Urine Benzodiazepines Screen NEG (NEG) Urine Cocaine Metabolite NEG (NEG) Urine Marijuana (THC) NEG (NEG) Bedside Glucose 109 mg/dl (70-90) Total Creatine Kinase 521 U/L (26-192) Test 04/18/17 07:13 Fasting Glucose 87 mg/dl (70-99) Triglycerides Level 67 mg/dl (0-150) Cholesterol Level 161 mg/dl (0-200) HDL Cholesterol 63 mg/dl LDL Cholesterol, Calculated 85 mg/dl VLDL Cholesterol, Calculated 13 mg/dl Cholesterol/HDL Ratio 2.6 Thyroid Stimulating Hormone (TSH) 6.800 uIu/ml (0.300-4.500) Free Thyroxine 1.17 ng/dl (0.80-1.60) Problem Qualifiers (1) Schizoaffective disorder: Schizoaffective disorder type: bipolar Qualified Codes: F25.0 - Schizoaffective disorder, bipolar type
[2017-05-01] MEDS: QUETIAPINE FUMARATE 100 MG TAB PO SCH ×2 (22:01→22:06)
[2017-05-02] MEDS: hydrOXYzine HCL 25 MG TAB PO PRN ×2 (00:58→08:08)
[2017-05-02 06:55] VITALS: BP_SYST 113; BP_SYST 119; BP_DIAS 69; BP_DIAS 75; PULSE 88; PULSE 91; TEMP 36.8
[2017-05-02] MEDS: LEVOTHYROXINE 100 MCG TAB PO SCH (07:46)
[2017-05-02] MEDS: LACTOBACILLUS ACIDOPHILUS (FLORANEX) TAB PO SCH (08:01)
[2017-05-02] MEDS: CHOLECALCIFEROL 1000 INTER.UNIT TAB PO SCH (08:01)
[2017-05-02] MEDS: DOCUSATE SODIUM 100 MG CAP PO SCH (08:02)
[2017-05-02] MEDS: RANITIDINE HCL 150 MG TAB PO SCH (08:02)
[2017-05-02] MEDS: PSYLLIUM 58.6% PWD PACK S\\F PO SCH (08:04)
[2017-05-02] MEDS: HALOPERIDOL 5 MG TAB PO SCH (08:07)
[2017-05-02] MEDS: BOOST BREEZE NUTRITION DRINK 1 BOX PO SCH (08:08)
[2017-05-02] MEDS: BENZTROPINE MESYLATE 1 MG TAB PO PRN (09:24)
--- NOTE | 2017-05-02 09:34 | Discharge Instructions ---
Discharge Information Report Includes Report will include the: Discharge Instructions & Summary Admission Admission Date / Time: Apr 16, 2017 at 22:19 Reason for Admission: Mood Disorder Discharge Discharge Diagnosis / Problem: Schizoaffective disorder, bipolar type Condition at Discharge: Fair Discharge Goals Goal(s): Decrease discomfort, Improve function, Improve disease control Activity Recommendations Activity Limitations: resume your previous activity . Instructions / Follow-Up Instructions / Follow-Up . SPECIAL CARE INSTRUCTIONS: 1. Follow through with your scheduled aftercare appointments. If unable to keep an appointment, please call to reschedule. 2. Take your medication only as prescribed. Medication should not be changed or stopped without the approval of your doctor. In the event of worsening symptoms or concerns about side effects, contact your doctor immediately. 3. Utilize new healthy coping skills, anger management skills, and stress management skills learned during your hospitalization. Journal feelings and process them with a support person. Identify stressors or situations that may result in relapse, deterioration or inappropriate behaviors and develop a plan to deal with those issues. 4. If your coping skills are ineffective and you are in crisis, contact your outpatient providers for direction. If unable to reach your providers, please call the CAN HELP LINE AT or go to the closest Emergency Room. 5. Avoid alcohol and un-prescribed drugs. 6. You have been provided with the Mental Health Advance Directives Pamphlet for your review. AFTERCARE APPOINTMENTS: * Please call your insurance company prior to your scheduled appointment to confirm your aftercare providers are covered. Take your insurance information to your appointments. . Discharge / Aftercare Planning Primary Care Physician: Name: Dr. Yuri Carlson Date of Appointment: May 09, 2017 Time of Appointment: 1:15 p.m. Appointment Notes: [address], [place] [address] Psychiatrist: Name: Dr Decker, [facility] Date of Appointment: May 04, 2017 Time of Appointment: 1:35 p.m. Appointment Notes: [address] [facility], [place] Therapist: Name Of Therapist: [facility] Yessenia Maldonado Date of Appointment: May 10, 2017 Time of Appointment: 9:00 Appointment Comments: [address] [facility] [place] Block Splitter Operator: Name: Justin Cornell Date of Appointment: May 06, 2017 Time of Appointment: 9:00 a.m. Appointment Notes: Will meet with you at home Other: Name of Appointment #1: [facility] Appointment #1 Notes: referral made, will follow up with [facility] for payment options . Follow-Up Care Plan for Follow-Up Care: The patient will be picked up by her deputy county attorney at discharge to be taken to arraignment. The patient has follow up appts with her regular providers scheduled. Current Hospital Diet Patient's current hospital diet: Regular Diet Discharge Diet Recommended Diet: Regular Diet Procedures Procedures Performed: No Pending Studies Pending Studies at Discharge: No Medical Emergencies . Who to Call and When: Medical Emergencies: For questions or emergencies related to your hospital stay, please contact the Inpatient Behavioral Health Unit at [phone]. A golf course keeper is on-call 25/10 for the Behavioral Health Unit for emergencies At any time you feel your situation is an emergency, you may also call 911 immediately. . Non-Emergent Contact Non-Emergency issues call your: Psychiatrist, Therapist Advance Directives Do You Have an Existing Mental: No Existing Living Will: No Existing Power of Driller'S Assistant: Yes The Person Making Decisions: constantino ibanez sister Advance Directives Info Given: To Pt/S.O. Advance Directives Reason: Declines as Mental Health Visit. Discharge Summary Admission HPI Per the Admitting provider: Patient slept through the night and reports little memory of events in ED. She is loud/pressured and not particularly cooperative with interview currently. She reportedly confronted her neighbors for [place] water and then threatened them with a frying lott prior to barricading herself in her home with a >3 ft long machete. She was in a "stand off" with police for 2 hours threatening herself and others and required 4 pt restraints, IV and IM Ketamine, and Haldol and Ativan for agitation. She tells me that she wanted to adopt her neighbors and wanted specific water because tap water is poison. She states that she was chipping ice off of her deck to have suck on snow rather than drinking the water in her house. It doesn't seem that she has been taking her medication, specifically Seroquel as prescribed. Dosing doesn't match Dr. Decker's last clinic note and when I spoke with him directly he stated that patient is no longer taking Vraylar or Ativan. He is aware of her history of benzo OD but since she had been stable for some time on Seroquel (dose up to 500 mg) he had provided a few tabs as a comfort measure. The patient is insistent with me that she have Klonopin and Ativan. She does have insight that "I clearly need Seroquel", recognizing that her current use of 50-100 mg is inadequate to control her mood symptoms. She admitted to staff that she uses MJ regularly and when she can't have an Ativan she takes a shot of Vodka daily. Of note patient was last seen on consult service on 12/17 for Klonopin OD. She has been following at [facility] since summer. Last therapy appt with Dr. Weber in August 2016. Hospital Course (1) Schizoaffective disorder 04/17--The patient is admitted to [facility] ([facility] mental [facility] unit) on q 15 min checks (behavioral with suicide precautions) for safety. The patient will participate in group, recreational and milieu therapies and will be offered additional individual and family sessions as clinically appropriate. Case reviewed with outpatient psychiatrist. She is agreeable to restart higher dose of Seroquel and will take 200 mg this hs with additional 100 mg po prn, likely should be retitrated to at least [address] Decker would support retrial of adjunctive depakote and/or conversion to injectable. multiple prns ordered should she become agitated, MNPR given unpredictable behavior 04/18 - increase quetiapine to 300 mg daily at bedtime and continue 100 mg when necessary dose. Continue haloperidol 5 mg and lorazepam 2 mg as needed. Continue benztropine as needed. - Consider Depakote versus more potent antipsychotic with a long acting injectable option. Today she is unwilling/unable to participate in the discussion of medication options. - Fasting lipid profile and glucose performed today and were normal. - Continue medically necessary private room due to psychosis and agitation/ aggression. 04/19 - Start Invega 3 mg. HS, continue Seroquel for now. - Continue to encourage AHUMADA Sustenna - May have akathisia, will have staff attempt a Garcia Akathisia Rating Scale - Artane 5 mg. NOW - Complaining of pain. Will order Ibuprofen 600 mg. QID prn 04/20 - Increase paliperidone to 6mg qhs. Continue quetiapine 300 mg daily at bedtime for now, due to severity of manic symptoms, and prn quetiapine (100 mg every 6 hours when necessary) and haloperidol/lorazepam for agitation. Could consider when necessary chlorpromazine if quetiapine is not beneficial, or clonazepam. - File for 303 commitment, hearing to be held tomorrow. Patient informed. - Coordinate care with Dr. Decker at the patient's request. - Continue MNPR due to severity of mirna, disorganization, and irritability. 04/21 - 303 commitment granted. - Continue Invega 6 mg daily and quetiapine 300 mg daily at bedtime. We will continue to discuss the recommendations for long-acting injectable ( Sustenna), and hopefully she will agree to this. This is indicated due to her noncompliance with oral medications, severity of symptoms, and we'll also ensure that she is medicated while in residential. - grain farmworker to contact forensic major case detective, Mary Shah, so that she can follow the patient while incarcerated. - Continue medically necessary private room due to severity of mirna and erratic, inappropriate behaviors. - The patient may be able to start making plans for a family meeting, possibly with sister or adult sons. 04/22 - Haldol 5mg BID scheduled as patient has found it helpful with restlessness and agitation. - Continue Invega 6mg daily and 300mg quetiapine at bedtime. Unwilling for increase in Invega at this time, but may be more willing tomorrow. - Continue MNPR due to current manic episode and irritability. 04/23 - Will continue medications as above. Would be ideal to eliminate need for 3 separate agents if possible, but patient is currently resistant to certain medication changes. - Continue MNPR due to manic behavior and irritability, as well as terroristic threat charge pending. - Continue to encourage group participation where appropriate. 04/24 - Taper invega to 3mg today and increase haldol from 5mg po bid to 5mg AM and 10mg/hs, continue seroquel 300mg/hs with 100mg q6h prn (taking about one time a day prn) - Continue MNPR due to manic behavior, intrusive and talkative and unable to observe boundaries in bedroom space (e.g. talk to roommate incessantly, intrusive in interpersonal space) and terroristic threat charge pending. - Encourage group where appropriate. 04/25 - Increase quetiapine to 400mg qhs, and haloperidol 5 mg every morning and 10 mg daily at bedtime, and complete taper off paliperidone. - Continue medically necessary private room. Encourage groups when able to control behavior. 04/27 - Continue quetiapine and haloperidol, as the patient is refusing to increase the dose of one and consolidate to one antipsychotic. Discontinue paliperidone. It may actually be beneficial for her to be on 2 antipsychotics, as she is already parkinsonian on the haloperidol, and her manic symptoms similar not well controlled. She is refusing higher dose of quetiapine. - The patient's sister indicates that she has not been at baseline for many months, and it will likely be a long slow process for her to recover completely. She is still distractible and requires frequent redirection, and we will continue to try to stabilize her symptoms as much a possible in preparation for transfer to residential. 04/28 - Continue quetiapine and haloperidol as above. Continue to recommend AHUMADA, which patient is not agreeable to at this time. Pt continues to be distractible and requires redirection during encounters. Pt feels she has been improving and denies complaints today. - Pt to be transported to court hearing tomorrow by her deputy county attorney. She states she will be taken home after the hearing. - MNPR discontinued this morning. Pt reports no safety concerns and would benefit from the opportunity to tolerate a roommate and show control of mood and behaviors. - Continue to encourage group participation when appropriate. 04/29 - Continue current medications - Hearing postponed to Tuesday, is to be discharged and escorted by deputy county attorney at that time. 04/30 - Continue medications as above. - Discharge planned for Tuesday. 05/01 - Continue current meds (2) Benzodiazepine abuse Patient is unable to participate in meaningful discussion around this and ETOH use, unclear if use disorder on the latter and will cover with [facility] protocol. Outpatient provider is clear he will no longer Rx any benzos for this patient. 04/19 - patient continues to demand multiple controlled substances, including stimulants, benzodiazepines, and CBD oil. Would not recommend she be prescribed any controlled substances outside of the hospital due to the high risk of abuse/misuse/exacerbation of symptoms. - No signs of alcohol or benzodiazepine withdrawal, so we'll discontinue AWSS protocol. 04/27 - Brief intervention was offered and accepted Intervention was greater than 5 min in length. Brief interventions include: 1. Assess Readiness to Quit, 2. Advise: Help Patient to Reduce or Abstain from Alcohol, 3. Agree: Set Specific, Feasible Goals, 4. Assist: Anticipate barriers, Problem-Solving Solutions. Social work to 5. Arrange: Referrals to appropriate treatment. Summary of intervention: The patient is in precontemplation stage with regards to transtheoretical model of change. The patient is advised to decrease alcohol consumption due to depressant effects and risk of interactions with prescription medications. The patient agreed to follow-up with her outpatient providers, and will be provided with recovery materials to continue to education self on how to cope with their condition without drinking/using cannabis or other controlled substances. (3) Hypothyroidism TSH >5 on admission, repeat panel. 04/18 - repeat TSH elevated at 6.8, but free T4 normal at 1.17. (4) Legal intervention active arrest warrant for terroristic threats 04/18 - patient signed release for police, social insurance analyst contacted them and they confirmed that they will be picking her up at discharge. 04/21 - social insurance analyst to contact Mary Shah, forensic major case detective, so that she can follow with the patient while in residential. 04/28 - Staff and patient report patient will be transported to her court hearing by her deputy county attorney tomorrow at discharge. 04/29 - Hearing postponed to Tuesday. Plan to discharge and be escorted to hearing by deputy county attorney at that time. Risk Factors Assessment : Yes /single/: Yes Higher / Fall in social status: Yes Access to guns: No Health problems: No Mental Health Diagnoses: Yes Substance use disorders: Yes Previous attempt: Yes Previous psychiatric stay: Yes Protective Factors Assessment : No Responsible for young children: No Employed: No Supportive family: Yes (sister is POA) Day of Discharge Assessment COURSE OF HOSPITALIZATION: The patient has been on our unit for 16 days. She was admitted on a 302 and further committed on a 303 due to her presentation with manic symptoms. She apparently was completely delusional about her water being poisoned, demanding bottled water from her neighbors who she then threatened with a machete. Police were called, there was a standoff. She currently has charges pending from those incidents. While in the hospital, antipsychotics were ramped up. Seroquel is 400 mg at bedtime. We attempted a trial of an Brown hoping she would accept a long acting injectable, systemic, however she refused and so in Brown was tapered off. Her improvement was slow in the beginning of her hospitalization. She remained intrusive, hyperverbal, and inappropriate at times. Her sleep was poor during the first part of her hospitalization but began to improve during the last half. She is now sleeping 8 hours and more each night. She has complained of akathisia which we medicated with Artane, seemingly helpful, however the patient refused to continue to take it claiming she didn't like it away it made her feel. She was maintained in a medically necessary private room for the first portion of her stay due to her inappropriate behaviors preventing her from having a roommate. Her sister Lorna was involved in a family meeting. Lorna is supportive, has had power of deputy county attorney papers for her and will continue to assist her with her finances as the patient has not been able to manage those appropriately. During the last week or so, the patient is consistently wanted to take only 300 of the 400 mg of Seroquel at bedtime and ask for this dosage to be reduced. Explanation was provided why we would not want to reduce her medications at this stressful time in view of the fact she will be discharged to the custody of the police for potential residential time after her behavior with weapons. The patient also reports that she has other weapons available to her including a elias club and a switchblade. Her deputy county attorney, Malu Sosa is aware of this and has told us that she will take responsibility for disposition of these because she will not be allowed to have any on probation. Overall, her behavior was significantly improved. She remains at risk of altering her own medication dosages as she has done in the past. We are recommending that she follow-up with Dr. Decker, her major case detective Justin Alexandra, and her therapist Mary at [facility]. DAY OF DISCHARGE ASSESSMENT: Today the patient is requesting discharge. We feel that she is improved enough over admission that she can be treated as an outpatient. The plan is that her deputy county attorney, Malu Sosa, will be picking her up and taking her for an arraignment hearing. It is unclear whether or not she will have residential time at this point. Otherwise she will follow-up with Dr. Decker, her regular major case detective and therapist. Today she is casually dressed, wearing multiple layers of shirts. Her gait is within normal limits, although she is restless, with prancing feet as she stands. Eye contact is good. Affect is smiling. Speech is of normal rate volume and tone. Thoughts are organized, goal directed, and without evidence of thought disorder. Recent and remote memory are intact per conversation. Intelligence is estimated to be average. Insight and judgment are improved over admission. Laboratory Test 04/16/17 16:54 04/16/17 17:00 04/16/17 17:16 04/16/17 20:09 White Blood Count 12.70 Red Blood Count 3.79 Hemoglobin 11.4 Hematocrit 33.4 Mean Corpuscular Volume 88.1 Mean Corpuscular Hemoglobin 30.1 Mean Corpuscular Hemoglobin Concent 34.1 Platelet Count 255 Mean Platelet Volume 8.6 Neutrophils (%) (Auto) 82.3 Lymphocytes (%) (Auto) 6.9 Monocytes (%) (Auto) 8.9 Eosinophils (%) (Auto) 1.5 Basophils (%) (Auto) 0.2 Neutrophils # (Auto) 10.44 Lymphocytes # (Auto) 0.88 Monocytes # (Auto) 1.13 Eosinophils # (Auto) 0.19 Basophils # (Auto) 0.03 RDW Standard Deviation 42.1 RDW Coefficient of Variation 13.1 Immature Granulocyte % (Auto) 0.2 Immature Granulocyte # (Auto) 0.03 Prothrombin Time 10.1 Prothrombin Time INR 1.0 PTT 25.2 Partial Thromboplastin Ratio 1.0 Sodium Level 133 Potassium Level 3.5 Chloride Level 101 Carbon Dioxide Level 23 Anion Gap 9.0 Blood Urea Nitrogen 8 Creatinine 0.59 Est Creatinine Clear Calc Drug Dose 84.3 Estimated GFR () 113.1 Estimated GFR (Non- 97.5 BUN/Creatinine Ratio 13.4 Random Glucose 100 Calcium Level 8.8 Total Bilirubin 0.5 Direct Bilirubin 0.1 Aspartate Amino Transferase (AST) 23 Alanine Aminotransferase (ALT) 24 Alkaline Phosphatase 105 Total Protein 6.9 Albumin 3.8 Lipase 164 Salicylates Level 2.6 Acetaminophen Level < 2 Ethyl Alcohol mg/dL < 3.0 Urine Color YELLOW Urine Appearance CLEAR Urine pH 7.0 Urine Specific [place] 1.009 Urine Protein NEG Urine Glucose (UA) NEG Urine Ketones NEG Urine Occult Blood TRACE Urine Nitrite NEG Urine Bilirubin NEG Urine Urobilinogen NEG Urine Leukocyte Esterase TRACE Urine WBC (Auto) 1-5 Urine RBC (Auto) 0-4 Urine Hyaline Casts (Auto) 0 Urine Epithelial Cells (Auto) 10-20 Urine Bacteria (Auto) NEG Urine Opiates Screen NEG Urine Methadone, Qualitative NEG Urine Barbiturates NEG Urine Phencyclidine (PCP) Level NEG Ur Amphetamine/Methamphetamine NEG MDMA (Ecstasy) Screen NEG Urine Benzodiazepines Screen NEG Urine Cocaine Metabolite NEG Urine Marijuana (THC) NEG POC Glucose 109 Total Creatine Kinase Thyroid Stimulating Hormone (TSH) 6.050 Test 04/16/17 21:10 04/18/17 07:13 Total Creatine Kinase 521 Fasting Glucose 87 Triglycerides Level 67 Cholesterol Level 161 HDL Cholesterol 63 LDL Cholesterol, Calculated 85 VLDL Cholesterol, Calculated 13 Cholesterol/HDL Ratio 2.6 Thyroid Stimulating Hormone (TSH) 6.800 Free Thyroxine 1.17 Total Time Total Time Spent (min): Greater than 30 minutes Total Time Included: examination of the patient, discharge planning, medication reconciliation, communication with other providers Tobacco Cessation at Discharge Smoking Status: Never Smoker FDA approved Prescription: non-smoker Antipsychotic Meds Rationale The patient is continuing 2 antipsychotics due to a history of a minimum of 3 failed trials of monotherapy and extensive history of antipsychotic trials: Zyprexa, Risperdal, Geodon, Abilify, Haldol, Saphris, Vraylar and Seroquel. Plan upon admission was to taper to monotherapy with long-acting injectable due to previous use of multiple antipsychotic medications; however, patient is not willing for this at this point in time. Problem Qualifiers (1) Schizoaffective disorder: Schizoaffective disorder type: bipolar Qualified Codes: F25.0 - Schizoaffective disorder, bipolar type
== END 2017-05-02 10:53 | DRG 885 ==
LOC: C.EDA 16:27 → C.MHU 22:19
PROVIDERS: ADMIT Psychiatry & Neurology Child & Adolescent Psychiatry; ATTEND Psychiatry & Neurology Child & Adolescent Psychiatry
DX: F25.0 Schizoaffective disorder, bipolar type (principal); R45.851 Suicidal ideations; R45.850 Homicidal ideations; Z78.1 Physical restraint status; G25.71 Drug induced akathisia; F13.10 Sedative, hypnotic or anxiolytic abuse, uncomplicated; E03.9 Hypothyroidism, unspecified; Z79.899 Other long term (current) drug therapy; Z81.8 Family history of other mental and behavioral disorders; Z81.1 Family history of alcohol abuse and dependence; Z83.6 Family history of other diseases of the respiratory system; Z82.49 Family history of ischemic heart disease and other diseases of the circulatory system